=== PATIENT | female | born 1945 | race Caucasian/White ===

== ENCOUNTER 2018-03-04 20:27 | Inpatient (IN) | payer OTHER ==
--- OUTSIDE RECORDS SUMMARY | 2018-03-04 22:09 | XMS REPORT | Continuity of Care Document ---
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 Systolic (mm Hg) 140 03/21/2012 [facility] Diastolic (mm Hg) 80 03/21/2012 [facility] Weight 166 03/11/2012 [facility] Heart Rate 78 03/11/2012 [facility] Systolic (mm Hg) 141 03/11/2012 [facility] Diastolic (mm Hg) 80 03/11/2012 [facility] Height 60 02/15/2012 [facility] Weight 160 02/15/2012 [facility] Heart Rate 75 02/15/2012 [facility] Systolic (mm Hg) 134 02/15/2012 [facility] Diastolic (mm Hg) 77 02/15/2012 [facility] Encounters Location Location Encounter Encounter Reason Attending ADM DC Status Source Details Type Number For Provider Date Date Visit [facility] Office Visit [id number] Juan 06/25 06/25 [place] [facility] [id number] MD Luigi /2014 Medical [facility] Office Visit [id number] Juan 07/16 07/16 [place] [facility] [address] MD Luigi /2014 Medical [facility] Lab Report [id number] Juan 07/30 07/30 [place] [facility] [address] MD Luigi /2014 Medical [facility] Lab Report [id number] Juan 08/03 08/03 [place] [id number] MD Luigi /2014 Medical [facility] Office Visit [id number] Juan 08/13 08/13 [place] [facility] [address] MD Luigi /2014 Medical [facility] Office Visit [id number] Juan 08/17 08/17 [place] [id number] MD Luigi /2014 Medical [facility] Office Visit [id number] Juan 08/24 08/24 [place] [address] MD Luigi /2014 Medical [facility] Office Visit [id number] Juan 08/31 08/31 [place] [address] MD Luigi /2014 Medical [facility] Office Visit [id number] Juan 09/24 09/24 [place] [address] MD Luigi /2014 Medical [facility] Office Visit [id number] Juan 10/15 10/15 [place] [address] MD Luigi /2014 Medical [facility] Lab Report [id number] Juan 11/02 11/02 [place] [address] MD Luigi /2014 Medical [facility] Office Visit [id number] Juan 11/16 11/16 [place] [address] MD Luigi /2014 Medical [facility] Office Visit [id number] Juan 11/23 11/23 [place] [address] MD Luigi /2014 Medical [facility] Office Visit [id number] Juan 11/30 11/30 [place] [address] MD Luigi /2014 Medical [facility] Office Visit [id number] [place] 12/14 12/14 [place] [address] MD Luigi /2014 Medical [facility] Office Visit [id number] Juan 01/21 01/21 [place] [address] MD Luigi /2014 Medical [facility] Outpatient [id number] XRAY VISIT 01/21 Active [facility] [place] [facility] [id number] JUAN 01/21 Active [facility] 0 LUIG[facility] [place] [facility] [id number] JUAN 02/15 Active [facility] 2 [place] [facility]patient [id number] JUAN 04/22 Active [facility] 3 [place] [facility]patient [id number] JUAN 04/22 Active [facility] 4 [place] [facility]patient [id number] JUAN 10/12 Active [facility] [place] [facility]patient [id number] XRAY VISIT 10/12 [facility] [place] [facility]patient [id number] XRAY VISIT 10/12 [facility] Observation [id number] Juan 10/21 10/22 [place] 1 [place] [facility] [id number] JUAN 11/02 Active [facility] 8 [place] [facility]patient [id number] JUAN 11/23 Active [facility] 9 [place] [facility]patient [id number] JUAN 12/07 Active [facility] 0 LUIG[place] [facility]patient [id number] JUAN 02/12 Active [facility] 1 [place] Procedures Procedure Code Date Perfomer Comments Source Arthroscopy of [id number] 10/21/2016 RIGHT HIP [place] hip<sup>1</sup> ARTHROSCOPY,LA [place] BRAL DEBRIDEMENT,RE MOVAL OF LOOSE BODY,SYNOVECTO MY AND CHONDROPLASTY. Arthroplasty<sup>2</s [id number] left shoulder [facility] [place] up> [place] Arthroplasty of [id number] left [facility] [place] knee<sup>3</sup> [place] Arthroplasty of [id number] twice [facility] [place] knee<sup>4</sup> [place] Cholecystectomy [id number] [facility] [place] Colonoscopy [id number] [facility] [place] Hysterectomy [id number] [facility] [place] Revision of total [id number] right [facility] [place] knee arthroplasty, [place] all components<sup>5</sup > Shoulder [id number] left [facility] [place] implantation<sup>6</s [place] up>
--- OUTSIDE RECORDS SUMMARY | 2018-03-04 22:10 | XMS REPORT | Continuity of Care Document ---
:1945 Author Organization [facility] Care Team Providers Name Role Phone MD Luigi, Juan Unavailable Unavailable Insurance Providers Payer name Policy type / Policy ID Covered green party ID Policy Garcia Coverage type [facility] PFFS PRIM [employer] [place] - MEDICARE SOLUTIONS E[place] CARE IMPROVEMENT PL[place] MED[place] [employer] [place] - MEDICARE eTax Credit Exchange ESS [employer] [place] - MEDICARE SOLUTIONS E[place] CARE IMPROVEMENT [place] MED[place] [place] - MEDICARE SOLUTIONS [facility] VIDTEQ [place] - MEDICARE SOLUTIONS [facility] VIDTE[employer] [place] - MEDICARE SOLUTIONS [facility] VIDTEQ [place] - MEDICARE eTax Credit Exchange [facility] [employer] [place] - MEDICARE eTax Credit Exchange [facility] - MEDICARE SOLUTIONS [facility] Encounters Encounter Performer Location Date Office Visit Juan Meyers MD [facility] [place] [facility] Jun 25, 2014 Allergies, Adverse Reactions, Alerts Type Substance Reaction Status Drug allergy SULFA Active Drug allergy PCN Active Problems Problem Effective Dates Problem Status COPD Active INTERNAL DERANGEMENT, RIGHT KNEE Feb 15, 2012 Active TEAR MEDIAL CARTILAGE OR MENISCUS KNEE CURRENT Mar 11, 2012 Active OSTEOARTHRITIS, KNEE Jun 25, 2014 Active Medications Medication Instructions Start Date Status VICODIN ES 7.5-750 MG TABS one p.o. q.6 hour prn for pain Feb 15, 2012 Active VOLTAREN 1 % GEL 4 grams topically q6h prn Jun 25, 2014 Active pain/swelling NAPROSYN 500 MG TABS 1tab po BID with food for pain & Jun 25, 2014 Active swelling. Vital Signs Date Description Test Result Feb 15, 2012 height E&M - 8302-2 HEIGHT 60 in Feb 15, 2012 weight E&M - 3141-9 WEIGHT 160 lb Feb 15, 2012 pulse rate, standing PULSE STAND 75 /min Feb 15, 2012 blood pressure, systolic - 8480-6 BP SYSTOLIC 134 mm Hg Feb 15, 2012 blood pressure, diastolic - 8462-4 BP DIASTOLIC 77 mm Hg Mar 11, 2012 weight E&M - 3141-9 WEIGHT 166 lb Mar 11, 2012 pulse rate, standing PULSE STAND 78 /min Mar 11, 2012 blood pressure, systolic - 8480-6 BP SYSTOLIC 141 mm Hg Mar 11, 2012 blood pressure, diastolic - 8462-4 BP DIASTOLIC 80 mm Hg Mar 21, 2012 weight E&M - 3141-9 WEIGHT 167 lb Mar 21, 2012 pulse rate, standing PULSE STAND 78 /min Mar 21, 2012 blood pressure, systolic - 8480-6 BP SYSTOLIC 140 mm Hg Mar 21, 2012 blood pressure, diastolic - 8462-4 BP DIASTOLIC 80 mm Hg Apr 01, 2012 weight E&M - 3141-9 WEIGHT 167 lb Jun 25, 2014 weight E&M - 3141-9 WEIGHT 167 lb
--- OUTSIDE RECORDS SUMMARY | 2018-03-04 22:10 | XMS REPORT | Continuity of Care Document ---
:[address] [facility] Care Team Providers Name Role Phone MD Luigi, Juan Unavailable Unavailable Insurance Providers Payer name Policy type / Policy ID Covered republican ID Policy Garcia Coverage type [facility] MCR PFFS PRIM nothingGrinder - MEDICARE SOLUTIONS E[place] CARE IMPROVEMENT PL[place] MED[place]ARE ADVANTAG nothing[employer]inder - MEDICARE [employer] ESS nothingGrinder - MEDICARE SOLUTIONS E[place] CARE IMPROVEMENT [place] MED[place]ARE ADV[place] nothing[employer]inder - MEDICARE SOLUTIONS [facility] nothingGrinder - MEDICARE SOLUTIONS [facility] nothingGrinder - MEDICARE Gotuit [facility] nothingGrinder - MEDICARE Gotuit [facility] - MEDICARE SOLUTIONS [facility] - MEDICARE SOLUTIONS [facility] - MEDICARE SOLUTIONS [facility] Encounters Encounter Performer Location Date Office Visit Juan Meyers MD [facility] [place] [facility] Jun 25, 2014 Allergies, Adverse Reactions, [...]
--- OUTSIDE RECORDS SUMMARY | 2018-03-04 22:10 | XMS REPORT | Continuity of Care Document ---
:1945 Author Organization [facility] Care Team Providers Name Role Phone MD Luigi, Juan Unavailable Unavailable Insurance Providers Payer name Policy type / Policy ID Covered libertarian ID Policy Garcia Coverage [facility] PFFS PRIM [facility] - MEDICARE SOLUTIONS [place] CARE IMPROVEMENT PL[place] MEDICARE ADVANTAG [facility] - MEDICARE SOLUTIONS [facility] - MEDICARE SOLUTIONS [place] CARE IMPROVEMENT [place] MEDICARE ADVANTAG [facility] - MEDICARE SOLUTIONS [facility] - MEDICARE SOLUTIONS [facility] - MEDICARE SOLUTIONS [facility] - MEDICARE SOLUTIONS [facility] - MEDICARE SOLUTIONS [facility] - MEDICARE SOLUTIONS [facility] - MEDICARE SOLUTIONS [facility] - MEDICARE SOLUTIONS [facility] - MEDICARE SOLUTIONS [facility] - MEDICARE SOLUTIONS [facility] - MEDICARE SOLUTIONS [facility] - MEDICARE SOLUTIONS [facility] - MEDICARE SOLUTIONS [facility] - MEDICARE SOLUTIONS [facility] - MEDICARE SOLUTIONS [facility] - MEDICARE SOLUTIONS [facility] - MEDICARE SOLUTIONS [facility] - MEDICARE SOLUTIONS [facility] - MEDICARE SOLUTIONS [facility] - MEDICARE SOLUTIONS [facility] - MEDICARE SOLUTIONS [facility] - MEDICARE SOLUTIONS [facility] - MEDICARE SOLUTIONS [facility] - MEDICARE SOLUTIONS [facility] - MEDICARE SOLUTIONS [facility] - MEDICARE SOLUTIONS [facility] - MEDICARE SOLUTIONS [facility] - MEDICARE SOLUTIONS [facility] - MEDICARE SOLUTIONS [facility] - MEDICARE SOLUTIONS [facility] - MEDICARE SOLUTIONS [facility] - MEDICARE SOLUTIONS [facility] - MEDICARE SOLUTIONS [facility] - MEDICARE SOLUTIONS [facility] - MEDICARE SOLUTIONS [facility] - MEDICARE SOLUTIONS [facility] - MEDICARE SOLUTIONS [facility] - MEDICARE SOLUTIONS [facility] - MEDICARE SOLUTIONS [facility] - MEDICARE SOLUTIONS [facility] - MEDICARE SOLUTIONS [facility] - MEDICARE SOLUTIONS [facility] - MEDICARE SOLUTIONS [facility] - MEDICARE SOLUTIONS [facility] - MEDICARE SOLUTIONS [facility] - MEDICARE SOLUTIONS [facility] - MEDICARE SOLUTIONS [facility] - MEDICARE SOLUTIONS [facility] - MEDICARE SOLUTIONS [facility] Encounters Encounter Performer Location Date Office Visit Juan Meyers MD [facility] [place] [facility] Jan 21, 2015 Allergies, Adverse Reactions, Alerts Type Substance Reaction Status Drug allergy SULFA Active Drug allergy PCN Active Problems Problem Effective Dates Problem Status COPD Active INTERNAL DERANGEMENT, RIGHT KNEE Feb 15, 2012 Active TEAR MEDIAL CARTILAGE OR MENISCUS KNEE CURRENT Mar 11, 2012 Active OSTEOARTHRITIS, KNEE Jun 25, 2014 Active PRE-OPERATIVE CARDIOVASCULAR EXAMINATION Jul 30, 2014 Inactive KNEE REPLACEMENT, HX OF Aug 07, 2014 Active ROTATOR CUFF SYNDROME, LEFT Sep 24, 2014 Active SHOULDER JOINT REPLACEMENT BY OTHER MEANS November 08, 2014 Active CERVICAL SPRAIN Nov 30, 2014 Active Medications Medication Instructions Start Date Status VICODIN ES 7.5-750 MG TABS one p.o. q.6 hour prn for pain Feb 15, 2012 Active VOLTAREN 1 % GEL 4 grams topically q6h prn Jun 25, 2014 Active pain/swelling NAPROSYN 500 MG TABS 1tab po BID with food for pain & Jun 25, 2014 Active swelling. MELOXICAM 15 MG TABS one tablet p.o. daily with food Aug 13, 2014 Active p.r.n. swelling HYDROCHLOROTHIAZIDE 12.5 MG CAPS Take one capsule by mouth daily Aug 17, 2014 Active TYLENOL WITH CODEINE #4 TABS 1-2 tabs po q4-6hrs prn pain Aug 20, 2014 Active LIDODERM 5 % PTCH one patch topically to cervical Nov 30, 2014 Active spine daily p.r.n. pain NEURONTIN 300 MG CAPS po qhs Dec 14, 2014 Active Vital Signs Date Description Test Result Feb [...] weight E&M - 3141-9 WEIGHT 167 lb Jul 16, 2014 weight E&M - 3141-9 WEIGHT 167 lb Aug 13, 2014 temperature E&M TEMPERATURE 98.3 deg f Results Date Description Test Name Value Reference Interpretation Status Jul 30, hemoglobin, blood HGB 13.1 g/dL 12.0-15.0 2014Jul 30, hematocrit, blood HCT 40.8 % 35.0-43.8 2014November 02, hemoglobin, blood HGB 14.0 g/dL 12.0-15.0 2014November 02, hematocrit, blood HCT 42.2 % 35.0-43.8 2014Jul 30, sodium, serum SODIUM 142 mmol/L [phone] Jul 30, potassium, serum POTASSIUM 4.2 mmol/L 3.3-5.0 2014Jul 30, urea nitrogen, BUN 14 mg/dL -2014Jul 30, creatinine, serum CREATININE 1.17 mg/dL 0.46-1.20 2014Jul 30, calcium, serum CALCIUM 9.5 mg/dL 8.8-10.0 2014November 02, sodium, serum SODIUM 138 mmol/L [phone] November 02, potassium, serum POTASSIUM 5.1 mmol/L 3.3-5.0 High 2014November 02, urea nitrogen, BUN 17 mg/dL -20 2014November 02, creatinine, serum CREATININE 1.34 mg/dL 0.46-1.20 High 2014November 02, calcium, serum CALCIUM 10.1 mg/dL 8.8-10.0 High 2014Jul 30, international INR 0.99 null 0.8-1.5 2014 normalized ratio (INR) Jul 30, PTT patient PTT PATIENT 24.1 s 22.0-36.0 2014November 02, international INR 1.04 null 0.8-1.5 2014 normalized ratio (INR) November 02, PTT patient PTT PATIENT 23.2 s 22.0-36.0 2014
--- OUTSIDE RECORDS SUMMARY | 2018-03-04 22:10 | XMS REPORT | Continuity of Care Document ---
:1945 Author Organization [facility] Care Team Providers Name Role Phone MD Luigi, Juan Unavailable Unavailable Insurance Providers Payer name Policy type / Policy ID Covered republican ID Policy Garcia Coverage type [facility] MCR PFFS PRIM [place] - MEDICARE SOLUTIONS ESS CARE IMPROVEMENT PL[place] MEDICARE ADVANTAG [place] - MEDICARE SOLUTIONS ESS [place] - MEDICARE SOLUTIONS ESS CARE IMPROVEMENT [place] MEDICARE ADVANTAG [place] - MEDICARE SOLUTIONS [place]SS [place] - MEDICARE SOLUTIONS [place]SS [place] - MEDICARE SOLUTIONS ESS [place] - MEDICARE SOLUTIONS [place]SS [place] - MEDICARE SOLUTIONS [place]SS [place] - MEDICARE SOLUTIONS [place]SS [place] - MEDICARE SOLUTIONS [place]SS [place] - MEDICARE SOLUTIONS [place]SS [place] - MEDICARE SOLUTIONS [place]SS [place] - MEDICARE SOLUTIONS ESS [place] - MEDICARE SOLUTIONS ESS [place] - MEDICARE SOLUTIONS ESS [place] - MEDICARE SOLUTIONS [facility] Encounters Encounter Performer Location Date Lab Report Juan Meyers MD [facility] [place] [facility] Jul Allergies, Adverse Reactions, Alerts Type Substance Reaction Status Drug allergy SULFA Active Drug allergy PCN Active Problems Problem Effective Dates Problem Status COPD Active INTERNAL DERANGEMENT, RIGHT KNEE Feb 15, 2012 Active TEAR MEDIAL CARTILAGE OR MENISCUS KNEE CURRENT Mar 11, 2012 Active OSTEOARTHRITIS, KNEE Jun 25, 2014 Active PRE-OPERATIVE CARDIOVASCULAR EXAMINATION Jul 30, 2014 Active Medications Medication Instructions Start [...] weight E&M - 3141-9 WEIGHT 167 lb Results Date Description Test Name Value Reference Interpretation Status Jul 30, hemoglobin, blood HGB 13.1 g/dL 12.0-15.0 2014Jul 30, hematocrit, blood HCT 40.8 % 35.0-43.8 2014Jul 30, sodium, serum SODIUM 142 mmol/L [phone] Jul 30, potassium, serum POTASSIUM 4.2 mmol/L 3.3-5.0 2014Jul 30, urea nitrogen, BUN 14 mg/dL 8-20 2014 blood Jul 30, creatinine, serum CREATININE 1.17 mg/dL 0.46-1.20 2014Jul 30, calcium, serum CALCIUM 9.5 mg/dL 8.8-10.0 2014Jul 30, international INR 0.99 null 0.8-1.5 2014 normalized ratio (INR) Jul 30, PTT patient PTT PATIENT 24.1 s 22.0-36.0 2014
--- OUTSIDE RECORDS SUMMARY | 2018-03-04 22:10 | XMS REPORT | Summary of Care ---
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 Rate ml/hr: 8 , Patient administered bolus ml/hr: 5 , Delay minutes: 30. Current Status Assessment Visual Analog Scale for Pain (VAS 0-10): At Rest: 1, With Activity: 2. Pump Use: Appropriate. Level of Sedation: Awake/Alert. Activity: Ambulating. Motor Block Residual Motor Weakness: No. Numbness Residual Sensory Numbness: No. Adjuvant Medication: PO. Site Assessment Non-tender, no redness, minimal swelling or bruising, No exudates, drainage, or bleeding. Side Effects Nausea/Vomiting: Mild. Catheter(s) Removed All peripheral nerve catheters removed. Date/Time: 10/23/2016 08:00. Tip was intact. 1st PO Analgesic Plan [facility] Plan Discharge from [facility] care: Analgesics per Primary Service. OUTPATIENT PHONE CALL: ILaly, am scribing for, and in the presence of Dr. Cain . Addendum by Mateo Cain MD on I, Dr Cain, personally performed the 10/23/2016 14:48 services described in this documentation, ascribed by APMS RN in my presence, and it is both accurate and complete.
--- OUTSIDE RECORDS SUMMARY | 2018-03-04 22:10 | XMS REPORT | Continuity of Care Document ---
:1945 Author Organization [facility] Care Team Providers Name Role Phone MD Luigi, Juan Unavailable Unavailable Insurance Providers Payer name Policy type / Policy ID Covered republican ID Policy Garcia Coverage type [facility] MCR PFFS PRIM UNITED HEALTHCARE - MEDICARE [...] Location Date Office Visit Juan Meyers MD [facility] [place] [facility] Dec 14, 2014 Allergies, Adverse Reactions, Alerts Type Substance [...] 2014Jul 30, sodium, serum SODIUM 142 mmol/L [phone] Jul 30, potassium, serum POTASSIUM 4.2 mmol/L 3.3-5.0 2014Jul 30, urea nitrogen, BUN 14 mg/dL 8-2014Jul 30, creatinine, serum CREATININE 1.17 mg/dL 0.46-1.20 2014Jul 30, calcium, serum CALCIUM 9.5 mg/dL 8.8-10.0 2014November 02, sodium, serum SODIUM 138 mmol/L [phone] November 02, potassium, serum POTASSIUM 5.1 mmol/L 3.3-5.0 High 2014November 02, urea nitrogen, BUN 17 mg/dL 8-20 2014November 02, creatinine, serum CREATININE 1.34 mg/dL [...]
--- OUTSIDE RECORDS SUMMARY | 2018-03-04 22:10 | XMS REPORT | Continuity of Care Document ---
:1945 Author Organization [facility] Care Team Providers Name Role Phone MD Luigi, Juan Unavailable Unavailable Insurance Providers Payer name Policy type / Policy ID Covered green party ID Policy Garcia Coverage type [facility] MCR PFFS PRIM Augment - MEDICARE SOLUTIONS ESS CARE IMPROVEMENT PL[place] MEDICARE ADVANTAG Augment - MEDICARE Swing by Swing ESS Augment - MEDICARE SOLUTIONS [place] CARE IMPROVEMENT [place] MED[place] ADV[place] Augment - MEDICARE Swing by Swing ESS Augment - MEDICARE SOLUTIONS ESS Augment - MEDICARE SOLUTIONS [facility] Augment - MEDICARE SOLUTIONS [facility] Augment - MEDICARE SOLUTIONS [facility] Augment - MEDICARE SOLUTIONS [facility] Augment - MEDICARE Swing by Swing [facility] UNITED HEALTHCARE - MEDICARE SOLUTIONS [facility] Encounters Encounter Performer Location Date Office Visit Juan Meyers MD [facility] [place] [facility] Jul 16, 2014 Allergies, Adverse Reactions, Alerts Type Substance [...]
--- OUTSIDE RECORDS SUMMARY | 2018-03-04 22:11 | XMS REPORT | Continuity of Care Document ---
:1945 Author Organization [facility] Care Team Providers Name Role Phone MD Luigi, Juan Unavailable Unavailable Insurance Providers Payer name Policy type / Policy ID Covered constitution party ID Policy Garcia Coverage type [facility]ITALAr[facility] MCR PFFS PRIM UNITED HEALTHCARE - MEDICARE SOLUTIONS [place] CARE IMPROVEMENT [place] MED[place]ARE ADVANTAG [employer] [facility] - MEDICARE SOLUTIONS [facility] - MEDICARE SOLUTIONS [place] CARE IMPROVEMENT PL[place] MED[place]ARE ADV[place] UNITED [facility]CARE - MEDICARE SOLUTIONS ESSEN UNITED HEALTHCARE - MEDICARE SOLUTIONS ESSEN UNITED HEALTHCARE - MEDICARE SOLUTIONS ESSEN UNITED HEALTHCARE - MEDICARE SOLUTIONS ESS UNITED HEALTHCARE - MEDICARE SOLUTIONS ESSEN UNITED HEALTHCARE - MEDICARE SOLUTIONS ESSEN UNITED HEALTHCARE - MEDICARE SOLUTIONS ESSEN UNITED HEALTHCARE - MEDICARE SOLUTIONS ESSEN UNITED HEALTHCARE - MEDICARE SOLUTIONS ESSEN UNITED HEALTHCARE - MEDICARE SOLUTIONS ESSEN UNITED HEALTHCARE - MEDICARE SOLUTIONS ESSEN UNITED HEALTHCARE - MEDICARE SOLUTIONS ESS UNITED HEALTHCARE - MEDICARE SOLUTIONS ESS UNITED HEALTHCARE - MEDICARE SOLUTIONS ESS UNITED HEALTHCARE - MEDICARE SOLUTIONS ESS [facility]ALTHCARE - MEDICARE SOLUTIONS ESSEN UNITED HEALTHCARE - MEDICARE SOLUTIONS ESSEN UNITED HEALTHCARE - MEDICARE SOLUTIONS ESS UNITED HEALTHCARE - MEDICARE SOLUTIONS ESS Encounters Encounter Performer Location Date Office Visit Juan Meyers MD [facility] [place] [facility] Aug 13, 2014 Allergies, Adverse Reactions, Alerts Type Substance Reaction Status Drug allergy SULFA Active Drug allergy PCN Active Problems Problem Effective Dates Problem Status COPD Active INTERNAL DERANGEMENT, RIGHT KNEE Feb 15, 2012 Active TEAR MEDIAL CARTILAGE OR MENISCUS KNEE CURRENT Mar 11, 2012 Active OSTEOARTHRITIS, KNEE Jun 25, 2014 Active PRE-OPERATIVE CARDIOVASCULAR EXAMINATION Jul 30, 2014 Active KNEE REPLACEMENT, HX OF Aug 07, 2014 Active Medications Medication Instructions Start Date [...] TABS one tablet p.o. daily with food p.r.n. Aug 13, 2014 Active swelling Vital Signs Date Description Test Result Feb [...] 2014Jul 30, sodium, serum SODIUM 142 mmol/L [phone] Jul 30, potassium, serum POTASSIUM 4.2 mmol/L 3.3-5.0 2014Jul 30, urea nitrogen, BUN 14 mg/dL 8-20 2015 blood Jul 30, creatinine, serum CREATININE 1.17 mg/dL 0.46-1.20 2014Jul 30, calcium, serum CALCIUM 9.5 mg/dL 8.8-10.0 2014Jul 30, international INR 0.99 null 0.8-1.5 2014 normalized ratio (INR) Jul 30, PTT patient PTT PATIENT 24.1 s 22.0-36.0 2014
--- OUTSIDE RECORDS SUMMARY | 2018-03-04 22:11 | XMS REPORT | Continuity of Care Document ---
:1945 Author Organization [facility] Care Team Providers Name Role Phone MD Luigi, Juan Unavailable Unavailable Insurance Providers Payer name Policy type / Policy ID Covered democrat ID Policy Garcia Coverage type [facility] MCR PFFS PRIM [employer] - MEDICARE SOLUTIONS [place] CARE IMPROVEMENT PL[place] MEDICARE ADV[place]AG [employer] - MEDICARE SOLUTIONS ESS [employer] - MEDICARE SOLUTIONS [place] CARE IMPROVEMENT [place] MEDICARE ADVANTAG [employer] - MEDICARE SOLUTIONS ESS [employer] - MEDICARE SOLUTIONS ESS [employer] - MEDICARE SOLUTIONS ESS [employer] - MEDICARE SOLUTIONS ESS [employer] - MEDICARE SOLUTIONS ESS [employer] - MEDICARE SOLUTIONS ESS CombiMatrix - MEDICARE SOLUTIONS ESS CombiMatrix - MEDICARE SOLUTIONS ESS Combi[employer] - MEDICARE SOLUTIONS ESS CombiMatrix - MEDICARE SOLUTIONS ESS [employer] - MEDICARE SOLUTIONS ESS [employer] - MEDICARE SOLUTIONS ESS Com[employer] - MEDICARE SOLUTIONS [facility] Encounters Encounter Performer Location Date Lab Report Juan Meyers MD [facility] [place] [facility] Jul Allergies, Adverse Reactions, Alerts Type [...] 2014Jul 30, sodium, serum SODIUM 142 mmol/L [phone] Jul 30, potassium, serum POTASSIUM 4.2 mmol/L 3.3-5.0 2014Jul 30, urea nitrogen, BUN 14 mg/dL 8-20 2014 blood Jul 30, creatinine, serum CREATININE 1.17 mg/dL 0.46-1.20 2014Jul 30, calcium, serum CALCIUM 9.5 mg/dL 8.8-10.0 2014Jul 30, international INR 0.99 null 0.8-1.5 2014 normalized ratio (INR) Jul 30, PTT patient PTT PATIENT 24.1 s 22.0-36.0 2014
--- OUTSIDE RECORDS SUMMARY | 2018-03-04 22:11 | XMS REPORT | Continuity of Care Document ---
:1945 Author Organization [facility] Care Team Providers Name Role Phone MD Luigi, Juan Unavailable Unavailable Insurance Providers Payer name Policy type / Policy ID Covered democrat ID Policy Garcia Coverage type NanoviFORT HAMILTON HOSPITALClick Security MCR PFFS PRIM UNITED HEALTHCARE - MEDICARE [...] Location Date Office Visit Juan Meyers MD [facility] [place] [facility] Sep 24, 2014 Allergies, Adverse Reactions, Alerts Type Substance [...] CUFF SYNDROME, LEFT Sep 24, 2014 Active Medications Medication Instructions Start Date [...] q4-6hrs prn pain Aug 20, 2014 Active Vital Signs Date Description Test [...] 2014Jul 30, sodium, serum SODIUM 142 mmol/L [phone] Jul 30, potassium, serum POTASSIUM 4.2 mmol/L 3.3-5.0 2014Jul 30, urea nitrogen, BUN 14 mg/dL 8-20 2014 blood Jul 30, creatinine, serum CREATININE 1.17 mg/dL 0.46-1.20 2014Jul 30, calcium, serum CALCIUM 9.5 mg/dL 8.8-10.0 2014Jul 30, international INR 0.99 null 0.8-1.5 2014 normalized ratio (INR) Jul 30, PTT patient PTT PATIENT 24.1 s 22.0-36.0 2014
--- OUTSIDE RECORDS SUMMARY | 2018-03-04 22:11 | XMS REPORT | Continuity of Care Document ---
:1945 Author Organization [facility] Care Team Providers Name Role Phone MD Luigi, Juan Unavailable Unavailable Insurance Providers Payer name Policy type / Policy ID Covered green party ID Policy Garcia Coverage type FX AlignedKETTER[facility] HE[facility] SO[facility] MEDICAL CENTERConservis MCR PFFS PRIM UNITED HEALTHCARE - MEDICARE [...] Location Date Office Visit Juan Meyers MD [facility] [place] [facility] Oct 15, 2014 Allergies, Adverse Reactions, Alerts Type Substance [...] 2014Jul 30, sodium, serum SODIUM 142 mmol/L [phone] Jul 30, potassium, serum POTASSIUM 4.2 mmol/L 3.3-5.0 2014Jul 30, urea nitrogen, BUN 14 mg/dL 8-20 2014 blood Jul 30, creatinine, serum CREATININE 1.17 mg/dL 0.46-1.20 2014Jul 30, calcium, serum CALCIUM 9.5 mg/dL 8.8-10.0 2014Jul 30, international INR 0.99 null 0.8-1.5 2014 normalized ratio (INR) Jul 30, PTT patient PTT PATIENT 24.1 s 22.0-36.0 2014
--- OUTSIDE RECORDS SUMMARY | 2018-03-04 22:11 | XMS REPORT | Continuity of Care Document ---
:1945 Author Organization [facility] Care Team Providers Name Role Phone MD Luigi, Juan Unavailable Unavailable Insurance Providers Payer name Policy type / Policy ID Covered republican ID Policy Garcia Coverage type Nomis SolutionsWVUMEDICINE BARN[facility]VILLE HOSPITALElastra MCR PFFS PRIM UNITED HEALTHCARE - MEDICARE [...] Office Visit Juan Meyers MD [facility] [place] [facility] Aug 17, 2014 Allergies, Adverse Reactions, Alerts Type Substance [...] by mouth daily Aug 17, 2014 Active Vital Signs Date Description Test [...] 2014Jul 30, sodium, serum SODIUM 142 mmol/L [phone] Jul 30, potassium, serum POTASSIUM 4.2 mmol/L 3.3-5.0 2014Jul 30, urea nitrogen, BUN 14 mg/dL 8-20 2015 blood Jul 30, creatinine, serum CREATININE 1.17 mg/dL 0.46-1.20 2014Jul 30, calcium, serum CALCIUM 9.5 mg/dL 8.8-10.0 2014Jul 30, international INR 0.99 null 0.8-1.5 2014 normalized ratio (INR) Jul 30, PTT patient PTT PATIENT 24.1 s 22.0-36.0 2014
--- OUTSIDE RECORDS SUMMARY | 2018-03-04 22:11 | XMS REPORT | Continuity of Care Document ---
:1945 Author Organization [facility] Care Team Providers Name Role Phone MD Luigi, Juan Unavailable Unavailable Insurance Providers Payer name Policy type / Policy ID Covered republican ID Policy Garcia Coverage type [facility] [facility]OSPITALKilimanjaro Energy MCR PFFS PRIM UNITED HEALTHCARE - MEDICARE [...] Location Date Office Visit Juan Meyers MD [facility] [place] [facility] Aug 24, 2014 Allergies, Adverse Reactions, Alerts Type [...] 80 mm Hg Mar 21, 2012 weight E&Cate - 3141-9 WEIGHT 167 lb Mar 21, [...] 2014Jul 30, sodium, serum SODIUM 142 mmol/L [phone] Jul 30, potassium, serum POTASSIUM 4.2 mmol/L 3.3-5.0 2014Jul 30, urea nitrogen, BUN 14 mg/dL 8-20 2015 blood Jul 30, creatinine, serum CREATININE 1.17 mg/dL 0.46-1.20 2014Jul 30, calcium, serum CALCIUM 9.5 mg/dL 8.8-10.0 2014Jul 30, international INR 0.99 null 0.8-1.5 2014 normalized ratio (INR) Jul 30, PTT patient PTT PATIENT 24.1 s 22.0-36.0 2014
--- OUTSIDE RECORDS SUMMARY | 2018-03-04 22:11 | XMS REPORT | Continuity of Care Document ---
:1945 Author Organization [facility] Care Team Providers Name Role Phone MD Luigi, Juan Unavailable Unavailable Insurance Providers Payer name Policy type / Policy ID Covered constitution party ID Policy Garcia Coverage type [facility] MCR PFFS PRIM [employer] - MEDICARE SOLUTIONS E[place] CARE IMPROVEMENT PLUS - [place] MEDICARE ADVANTAG [employer] - MEDICARE SOLUTIONS ESS NanoICE - MEDICARE SOLUTIONS ESS CARE IMPROVEMENT PLUS - [place] MEDICARE ADVANTAG [employer] - MEDICARE SOLUTIONS ESS NanoICE - MEDICARE SOLUTIONS ESS [employer] [facility] - MEDICARE SOLUTIONS ESS UNITED HEALTHCARE - MEDICARE SOLUTIONS ESS [employer] - MEDICARE SOLUTIONS ESS NanoICE - MEDICARE SOLUTIONS ESS UNITED Vinobo - MEDICARE SOLUTIONS ESS UNITED Vinobo - MEDICARE SOLUTIONS ESS UNITED HEALTHCARE - MEDICARE SOLUTIONS ESS Nano[employer] - MEDICARE SOLUTIONS ESS NanoICE - MEDICARE SOLUTIONS [facility] NanoICE - MEDICARE SOLUTIONS [facility] Encounters Encounter Performer Location Date Lab Report Juan Meyers MD [facility] [place] [facility] Jul Allergies, Adverse Reactions, Alerts Type [...] 2014Jul 30, sodium, serum SODIUM 142 mmol/L [phone] Jul 30, potassium, serum POTASSIUM 4.2 mmol/L 3.3-5.0 2014Jul 30, urea nitrogen, BUN 14 mg/dL 8-20 2015 blood Jul 30, creatinine, serum CREATININE 1.17 mg/dL 0.46-1.20 2014Jul 30, calcium, serum CALCIUM 9.5 mg/dL 8.8-10.0 2014Jul 30, international INR 0.99 null 0.8-1.5 2014 normalized ratio (INR) Jul 30, PTT patient PTT PATIENT 24.1 s 22.0-36.0 2014
--- OUTSIDE RECORDS SUMMARY | 2018-03-04 22:11 | XMS REPORT | Continuity of Care Document ---
:1945 Author Organization [facility] Care Team Providers Name Role Phone MD Luigi, Juan Unavailable Unavailable Insurance Providers Payer name Policy type / Policy ID Covered libertarian ID Policy Garcia Coverage type [facility]CR PFFS PRIM UNITED HEALTHCARE - MEDICARE [...] Location Date Office Visit Juan Meyers MD [facility] [place] [facility] Aug 31, 2014 Allergies, Adverse Reactions, Alerts Type Substance [...] 2014Jul 30, sodium, serum SODIUM 142 mmol/L [phone] Jul 30, potassium, serum POTASSIUM 4.2 mmol/L 3.3-5.0 2014Jul 30, urea nitrogen, BUN 14 mg/dL 8-20 2015 blood Jul 30, creatinine, serum CREATININE 1.17 mg/dL 0.46-1.20 2014Jul 30, calcium, serum CALCIUM 9.5 mg/dL 8.8-10.0 2014Jul 30, international INR 0.99 null 0.8-1.5 2014 normalized ratio (INR) Jul 30, PTT patient PTT PATIENT 24.1 s 22.0-36.0 2014
--- OUTSIDE RECORDS SUMMARY | 2018-03-04 22:12 | XMS REPORT | Continuity of Care Document ---
:1945 Author Organization [facility] Care Team Providers Name Role Phone MD Luigi, Juan Unavailable Unavailable Insurance Providers Payer name Policy type / Policy ID Covered alliance party ID Policy Garcia Coverage type [facility] MCR PFFS PRIM UNITED HEALTHCARE - [...] Location Date Office Visit Juan Meyers MD [facility] [place] [facility] Nov 23, 2014 Allergies, Adverse Reactions, Alerts Type Substance [...] BY OTHER MEANS November 08, 2014 Active Medications Medication Instructions Start Date [...] 2014Jul 30, sodium, serum SODIUM 142 mmol/L [phone] Jul 30, potassium, serum POTASSIUM 4.2 mmol/L 3.3-5.0 2014Jul 30, urea nitrogen, BUN 14 mg/dL 8-20 2014Jul 30, creatinine, serum CREATININE 1.17 mg/dL 0.46-1.20 2014Jul 30, calcium, serum CALCIUM 9.5 mg/dL 8.8-10.0 2014November 02, sodium, serum SODIUM 138 mmol/L [phone] November 02, potassium, serum POTASSIUM 5.1 mmol/L [...]
--- OUTSIDE RECORDS SUMMARY | 2018-03-04 22:12 | XMS REPORT | Continuity of Care Document ---
:[address] [facility] Care Team Providers Name Role Phone MD Luigi, Juan Unavailable Unavailable Insurance Providers Payer name Policy type / Policy ID Covered libertarian ID Policy Garcia [facility]age [facility] MCR PFFS PRIM UNITED HEALTHCARE - MEDICARE [...] Location Date Office Visit Juan Meyers MD [facility] [place] [facility] November 16, 2014 Allergies, Adverse Reactions, Alerts Type [...] 2014Jul 30, sodium, serum SODIUM 142 mmol/L [phone] Jul 30, potassium, serum POTASSIUM 4.2 mmol/L 3.3-5.0 2014Jul 30, urea nitrogen, BUN 14 mg/dL 8-20 2014Jul 30, creatinine, serum CREATININE 1.17 mg/dL 0.46-1.20 2014Jul 30, calcium, serum CALCIUM 9.5 mg/dL 8.8-10.0 2014November 02, sodium, serum SODIUM 138 mmol/L [phone] November 02, potassium, serum POTASSIUM 5.1 mmol/L [...]
--- OUTSIDE RECORDS SUMMARY | 2018-03-04 22:12 | XMS REPORT | Continuity of Care Document ---
:1945 Author Organization [facility] Care Team Providers Name Role Phone MD Luigi, Juan Unavailable Unavailable Insurance Providers Payer name Policy type / Policy ID Covered republican ID Policy Garcia Coverage type NanomixGRAND LAKE [facility] MEMORIAL HOSPITALGuanri MCR PFFS PRIM UNITED HEALTHCARE - MEDICARE [...] SOLUTIONS ESSEN Encounters Encounter Performer Location Date Lab Report Juan Meyers MD [facility] [place] [facility] October Allergies, Adverse Reactions, Alerts Type Substance Reaction [...] 2014Jul 30, sodium, serum SODIUM 142 mmol/L [phone] Jul 30, potassium, serum POTASSIUM 4.2 mmol/L 3.3-5.0 2014Jul 30, urea nitrogen, BUN 14 mg/dL 8-2014Jul 30, creatinine, serum CREATININE 1.17 mg/dL 0.46-1.20 2014Jul 30, calcium, serum CALCIUM 9.5 mg/dL 8.8-10.0 2014November 02, sodium, serum SODIUM 138 mmol/L [phone] November 02, potassium, serum POTASSIUM 5.1 mmol/L 3.3-5.0 High 2014November 02, urea nitrogen, BUN 17 mg/dL -2014November 02, creatinine, serum CREATININE 1.34 mg/dL 0.46-1.20 [...]
--- OUTSIDE RECORDS SUMMARY | 2018-03-04 22:12 | XMS REPORT | Continuity of Care Document ---
:1945 Author Organization [facility] Care Team Providers Name Role Phone MD Luigi, Juan Unavailable Unavailable Insurance Providers Payer name Policy type / Policy ID Covered constitution party ID Policy Garcia Coverage [facility] MCR PFFS PRIM UNITED HEALTHCARE - MEDICARE [...] Location Date Office Visit Juan Meyers MD [facility] [place] [facility] November 16, 2014 Allergies, Adverse Reactions, [...] 2014Jul 30, sodium, serum SODIUM 142 mmol/L [phone] Jul 30, potassium, serum POTASSIUM 4.2 mmol/L 3.3-5.0 2014Jul 30, urea nitrogen, BUN 14 mg/dL 8-20 2014Jul 30, creatinine, serum CREATININE 1.17 mg/dL 0.46-1.20 2014Jul 30, calcium, serum CALCIUM 9.5 mg/dL 8.8-10.0 2014November 02, sodium, serum SODIUM 138 mmol/L [phone] November 02, potassium, serum POTASSIUM 5.1 mmol/L [...]
--- OUTSIDE RECORDS SUMMARY | 2018-03-04 22:12 | XMS REPORT | Continuity of Care Document ---
:1945 Author Organization [facility] Care Team Providers Name Role Phone MD Luigi, Juan Unavailable Unavailable Insurance Providers Payer name Policy type / Policy ID Covered libertarian ID Policy Garcia Coverage type [facility] MCR PFFS PRIM UNITED HEALTHCARE [...] Location Date Office Visit Juan Meyers MD [facility] [place] [facility] Nov 30, 2014 Allergies, Adverse Reactions, Alerts Type Substance [...] 30, 2014 Active spine daily p.r.n. pain Vital Signs Date Description Test Result Feb [...] 2014Jul 30, sodium, serum SODIUM 142 mmol/L [phone] Jul 30, potassium, serum POTASSIUM 4.2 mmol/L 3.3-5.0 2014Jul 30, urea nitrogen, BUN 14 mg/dL 8-2014Jul 30, creatinine, serum CREATININE 1.17 mg/dL 0.46-1.20 2014Jul 30, calcium, serum CALCIUM 9.5 mg/dL 8.8-10.0 2014November 02, sodium, serum SODIUM 138 mmol/L [phone] November 02, potassium, serum POTASSIUM 5.1 mmol/L [...]
[2018-03-04] MEDS ORDERED: ONDANSETRON 4 MG/2 ML VIAL IV PRN (22:32)
[2018-03-04] MEDS: HYDROMORPHONE HCL 1 MG/ML INJ IV PRN (22:49)
[2018-03-04] MEDS: NA CHLORIDE 0.9% 1,000 ML IV SCH (22:55)
[2018-03-05 00:16] VITALS: BMI 37.1
[2018-03-05] MEDS ORDERED: CEFAZOLIN SODIUM 1 GM/VIAL ONE (01:01)
[2018-03-05] MEDS: CEFAZOLIN/NS 1gm 1 GM/50 ML BAG IVPB SCH ×2 (01:28→05:45)
[2018-03-05] MEDS ORDERED: NA CHLORIDE 0.9% 100 ML ONE ×2 (01:29→06:58)
[2018-03-05] MEDS: HYDROMORPHONE HCL 1 MG/ML INJ IV PRN ×3 (02:30→20:30)
[2018-03-05 05:34] LABS: Absolute Lymphocytes (CBC) 1.9 K/uL (0.7-4.9); Absolute Monocytes 0.5 K/uL (0.1-1.3); Absolute Neutrophil 6.7 K/uL (1.8-8.0); Basophils % 1.6 % (0-1.3); Eosinophils % 3.4 % (0-4.4); Hematocrit 32.9 % (36.0-45.0); Lymphocytes % 20.2 % (15.3-44.8); MCH 26.9 pg (27.0-35.0); MCV 83.4 fL (80-100); MPV 8.5 fL (7.6-11.3); Monocytes % 5.4 % (3.3-12.3); RBC Red Blood Cell Count 3.95 M/uL (3.86-4.86)
[2018-03-05 05:37] LABS: Protime INR 1.04
[2018-03-05 05:52] LABS: Albumin 2.8 g/dL (3.4-5.0); Bilirubin Total 0.2 mg/dL (0.2-1.0); Magnesium 1.9 mg/dL (1.8-2.4); Phosphorus 4.1 mg/dL (2.5-4.9); Potassium 3.9 mmol/L (3.5-5.1); Protein, Total 7.1 g/dL (6.4-8.2)
[2018-03-05] MEDS ORDERED: HYDROMORPHONE HCL 1 MG/ML INJ IV ONE (06:05)
[2018-03-05] MEDS ORDERED: KCL 20 MEQ/100 mL IVPB 20 MEQ/100 ML BAG IV SCH (08:00)
[2018-03-05] MEDS ORDERED: Ringers Lactate 1,000 ML IV ONE (08:48)
[2018-03-05] MEDS: NA CHLORIDE 0.9% 1,000 ML IV SCH ×2 (09:00→16:34)
[2018-03-05] MEDS: ENOXAPARIN 30 MG/0.3 ML SQ SCH (09:00)
[2018-03-05] MEDS ORDERED: FENTANYL CITR 100 MCG/2 ML ONE (09:02)
[2018-03-05] MEDS ORDERED: SUCCINYLCHOLINE 20 MG/ML (10 ML) IV ONE (09:05)
[2018-03-05] MEDS ORDERED: PROPOFOL 200 MG/20 ML VIAL IV ONE (09:06)
[2018-03-05] MEDS ORDERED: ONDANSETRON 4 MG/2 ML VIAL ONE (09:38)
[2018-03-05] MEDS: MORPHINE 4 MG/ML SYR ONE ×2 (09:50→09:55)
--- NOTE | 2018-03-05 09:51 | P.HP ---
Certification for Inpatient Patient admitted to: Observation With expected LOS: <2 Midnights Patient will require the following post-hospital care: Home Health Services Practitioner: I am a practitioner with admitting privileges, knowledge of patient current condition, hospital course, and medical plan of care. Services: Services provided to patient in accordance with Admission requirements found in Title 42 Section 412.3 of the Code of Federal Regulations Patient History Date of Service: 03/04/18 Reason for admission: Hip dislocation History of Present Illness: Patient is a 73-year-old female who had a total hip arthroplasty in January. This was done on the right hip. Since that time patient has has some issues with hip dislocation. She had a pop out of place a few weeks ago. This has happened again last night. Patient was brought into the emergency room at [facility] [place]. Patient was transferred to our facility as they did not have an orthopedic sterilization tech. Will go ahead and make patient NPO after midnight for rearticulation of her hip joint. Continue with pain control at this time. Also will start physical therapy once this is done. She also need a pillow to keep her hips from crossing over. Allergies Penicillins Allergy (Verified 03/04/18 22:30) Rash Sulfa (Sulfonamide Antibiotics) Allergy (Verified 03/04/18 22:30) Hives - Past Medical/Surgical History Has patient received pneumonia vaccine in the past: Yes Diabetic: No -: HTN -: TIA -: COPD -: Depression -: Lap appy -: Allison -: -: Left shoulder replacement -: 2X replacement right knee -: 1x replacement left knee - Family History Father Notes: alcoholic - Social History Smoking Status: Former smoker Alcohol use: No CD- Drugs: No Caffeine use: Yes Place of Residence: Home Review of Systems 10-point ROS is otherwise unremarkable Physical Examination - Vital Signs Temperature: 98.4 F Blood Pressure: 114/48 Pulse: 73 Respirations: 16 Pulse Ox (%): 96 - Physical Exam General: Alert, In no apparent distress, Oriented x3 HEENT: Atraumatic, PERRLA, Mucous membr. moist/pink, EOMI, Sclerae nonicteric Neck: Supple, 2+ carotid pulse no bruit, No LAD, Without JVD or thyroid abnormality Respiratory: Clear to auscultation bilaterally, Normal air movement Cardiovascular: Regular rate/rhythm, Normal S1 S2, No murmurs Gastrointestinal: Normal bowel sounds, Soft and benign, Non-distended, No tenderness Musculoskeletal: No clubbing, No swelling, No tenderness Integumentary: No rashes, No breakdown Neurological: Normal gait, Normal speech, Normal strength at 5/5 x4 extr, Normal tone, Sensation intact, Cranial nerves 3-12 intact, Normal affect Lymphatics: No axilla or inguinal lymphadenopathy - Studies Laboratory Data (last 24 hrs) 03/05/18 04:59: Sodium 143, Potassium 3.9, BUN 14, Creatinine 1.00, Glucose 113 H, Phosphorus 4.1, Magnesium 1.9, Total Bilirubin 0.2, AST 27, ALT 48, Alkaline Phosphatase 270 H 03/05/18 04:59: PT 12.3, INR 1.04, APTT 29.5 03/05/18 04:59: WBC 9.6, Hgb 10.6 L, Hct 32.9 L, Plt Count 433 H Assessment & Plan - Plan Assessment: 1. Hip dislocation 2. history of total hip arthroplasty on the left 3. history of COPD 4. History of TIA 5. History of hypertension and dyslipidemia Plan: 1. Orthopedic consultation 2. Pain control 3. Physical therapy consultation 4. Continue home medication and medical management with strict blood pressure and blood sugar control 5. GI and DVT prophylaxis Discharge Plan: Home Plan to discharge in: 24 Hours - Advance Directives Does patient have a Living Will: Yes Does patient have a Durable POA for Healthcare: Yes - Code Status/Comfort Care Code Status Assessed: Yes Code Status: Full Code Critical Care: No Time Spent Managing PTS Care (In Minutes): 50
--- NOTE | 2018-03-05 09:55 | RAD REPORT ---
EXAM DESCRIPTION: RAD - Hip Right 2 View - 03/05/2018 9:37 am CLINICAL HISTORY: Right hip pain FINDINGS: Right femoral prosthesis is dislocated superolaterally. No fracture is seen
[2018-03-05] MEDS: OXYCODONE HCL 5 MG TAB PO PRN (10:31)
[2018-03-05] MEDS ORDERED: CEFAZOLIN/SWI 1gm 1 GM/10 ML SYR IV SCH (12:00)
[2018-03-05 14:51] LABS: Ferritin 41.1 ng/mL (8-388)
--- NOTE | 2018-03-05 16:41 | PN ---
Subjective: Currently the patient is lying in bed. She looks okay. She is eating chips but she com plaining of severe back pain. No chest pain. No abdominal pain. She went through the procedure wel l earlier this morning with the closed reduction of the right hip but she reported lower severe back pain and she describes it as feeling as she is in delivery. Physical Examination: Vital Signs: Blood pressure 109/48, respiratory rate 16, pulse 77, temperature 98.4, saturating 100% . The patient is alert, oriented x3. Does not look in any distress. HEENT: Atraumatic, normocephalic. PERRLA. Oral mucosa is moist. Neck: Supple. No JVD. No carotid bruits. Chest: Clear to auscultation. Good air entry. Heart: Regular rate and rhythm. S1, S2 normal. No gallop or murmur. Abdomen: Soft, nontender. No masses. No hepatosplenomegaly. Positive bowel sounds. Extremity: No clubbing, cyanosis, or edema. No calf tenderness. Neurologic: Grossly intact. Laboratory Data: Lab today, CBC within normal except for hemoglobin of 10.6. Chemistry within gladis l except for chloride 118, GFR 54. Glucose 113 alkaline phosphatase 270. Assessment And Plan: 1.Right hip dislocation versus closed reduction, have been resolved. 2.Severe back pain, etiology? I will proceed with a lumbar spine x-ray and given the finding we may consider MRI of the spine. The patient was already on Dilaudid and the p.r.n. oxycodone. 3.History of chronic obstructive pulmonary disease, controlled. No shortness of breath. 4.Microcytic anemia. I will check iron profile. 5.History of transient ischemic attack. 6.Deep vein thrombosis prophylaxis, on Lovenox. 7.History of hypertension but blood pressure normal, off medication. GOPI/DONA Voice ID: [id number] Report ID: [id number]
--- NOTE | 2018-03-05 19:35 | OP ---
Date of Procedure: 03/05/2018 Surgeon: Salvador Hager MD Preoperative Diagnosis: Right dislocated total hip arthroplasty. Postoperative Diagnosis: Right dislocated total hip arthroplasty. Procedure Performed: Right total hip arthroplasty closed reduction under anesthesia. Estimated Blood Loss: 0 cc. Complications: There were no complications. Specimens: No pathology specimens sent. Indication For Operation: Ms. Jacome is a 73-year-old female who unfortunately has had a second epis ode of a dislocated hip, both of these being approximately a month after her total hip arthroplasty. She was transferred from an outside facility. I have spoken with her operative surgeon and the plan is to reduce the hip. Further treatment of the hip will be directed by her hip arthroplasty surgeon on a nonemergent basis. She does have pain at the hips. Also complains of some pain in the back. However, the pain in the back is nonfocal. She does have x-rays taken, which demonstrated a dislocat ed right total hip arthroplasty. All risks, benefits, and alternatives to total hip arthroplasty red uction have been discussed with the patient under anesthesia. She states she understands everything as presented and wished to proceed. Description Of Procedure: The patient was taken to the operating room, placed in supine position. G eneral anesthesia was obtained by the Anesthesia staff. Following this, C-arm was brought in which e stablishes a good view of the hip demonstrating continued persistent dislocation. This was followed by some simple downward traction to assess for the mobility of the hip as well as the possibility saundra t may relocate with this. The hip does not appear to move much at all with simple downward traction. Following this, the hip was then brought up to approximately 30 degrees and with some internal rota tion, downward traction then relocates the hip without much significant difficulty. Following this, she was then awakened and taken to the recovery room in good condition. There were no complications. SE/MODL Voice ID: [id number] Report ID: [id number]
[2018-03-05] MEDS: ACETAMINOPHEN 325 MG TABLET PO PRN (20:41)
--- NOTE | 2018-03-06 03:21 | CON ---
Date of Consultation: 03/05/2018 History Of Present Illness: This is my first time seeing this patient to my knowledge. She is a 73- year-old female who approximately a month ago underwent a total hip arthroplasty by another surgeon. She did fairly well for a few weeks. Unfortunately, she sustained a dislocation of her hip, which w as relocated in the operating room by her operating physician without apparent difficulty or complica tions. She then was prescribed an abduction orthosis. She describes her initial dislocation as comi ng out from a chair with immediate pain, she describes this pain. She was wearing her orthosis fairl y regularly per her report, but she said it began to make her back hurt. Therefore, she says she con tacted someone who said that she should be able to take it off at times. Eventually, she states that it was really not essential for her to use it. I am somewhat unsure of the exact interchange as thi s is the patient's history. Unfortunately, on , she was again trying to get up from the bed and sustained more pain. She went to an outside facility where x-rays were taken, which demonstrated a dislocated total hip arthroplasty. She was then transferred to our facility at [facility], which is a facility where her operating physician normally worked. He unfortunately is not in town, and I am therefore asked to see her. Physical Examination: On physical examination, she complains of some back pain; however, it is not focal. She has pain wit h any movement or manipulation of the right lower extremity. She has a well-healed total knee arthro plasty scar as well as a healed hip arthroplasty scar on the right. She does have motion of her toes and nerve function appears to be intact. Review of x-rays demonstrate a dislocated total hip arthro plasty. All risks, benefits, and alternatives to reduction under anesthesia were discussed with the patient. She states she understands things as presented and would like to proceed. All of her questions were otherwise answered. CONCEPCIÓN Voice ID: [id number] Report ID: [id number]
[2018-03-06] MEDS: NA CHLORIDE 0.9% 1,000 ML IV SCH ×3 (04:18→21:07)
[2018-03-06] MEDS: OXYCODONE HCL 5 MG TAB PO PRN (05:26)
[2018-03-06 05:40] LABS: Absolute Monocytes 0.7 K/uL (0.1-1.3); Absolute Neutrophil 5.3 K/uL (1.8-8.0); Basophils % 0.9 % (0-1.3); Eosinophils % 5.2 % (0-4.4); Hematocrit 30.1 % (36.0-45.0); Lymphocytes % 22.9 % (15.3-44.8); MCH 26.9 pg (27.0-35.0); MCV 82.9 fL (80-100); MPV 8.2 fL (7.6-11.3); Monocytes % 8.6 % (3.3-12.3); RBC Red Blood Cell Count 3.63 M/uL (3.86-4.86)
[2018-03-06 05:57] LABS: Albumin 2.3 g/dL (3.4-5.0); Bilirubin Total 0.3 mg/dL (0.2-1.0); Potassium 4.2 mmol/L (3.5-5.1); Protein, Total 6.1 g/dL (6.4-8.2)
[2018-03-06 06:43] LABS: Blood Morphology Comment NOT SEEN (NOT SEEN); Platelet Estimate ADEQ
[2018-03-06] MEDS: ENOXAPARIN 30 MG/0.3 ML SQ SCH (08:16)
[2018-03-06] MEDS: HYDROMORPHONE HCL 1 MG/ML INJ IV PRN ×4 (10:07→21:50)
--- NOTE | 2018-03-06 18:21 | PN ---
Subjective: Currently, the patient lying in bed. She looks a little bit more comfortable than yeste rday, but she continue to have severe lower back pain. Lumbar spine x-ray done ordered yesterday, bu t it was not done due to the fact that the patient had recent hip dislocation and MRI was not availab le over the weekend. Her appetite is good. Normal bowel movement. Objective: Vital Signs: Blood pressure is 144/60, respiratory rate 16, pulse 75, temperature 99.3. General: She is currently alert and oriented x3. Does not look in any distress. HEENT: Atraumatic, normocephalic. PERRLA. Oral mucosa is moist. Neck: Supple. No JVD. No bruits. Chest: Clear to auscultation. Good air entry. Heart: Regular rate and rhythm. S1, S2 normal. No gallop or murmur. Abdomen: Soft, nontender. No masses. No hepatosplenomegaly. Positive bowel sounds. Extremities: No clubbing, cyanosis, or edema. No calf tenderness. Neurologic: Grossly intact. Laboratory Data: Today, CBC: Hemoglobin 9.8, platelets 374, normal white blood cells. Chemistry wi thin normal except for chloride 108, GFR of 61, total protein of 6.1. Assessment And Plan: 1.Right hip dislocation, status post closed reduction by orthopedic, pain resolved at this point. 2.Severe lower back pain. I ordered lumbar spine x-ray yesterday, but it was not possible to be don e due to the recent hip dislocation. Radiologist brian was worried about another dislocation. So, I will proceed with MRI of the lumbar spine tomorrow morning. In the mean time, patient on Dilaudid an d p.r.n. oxycodone. 3.Chronic obstructive pulmonary disease, emphysema history, controlled; stable at this point. 4.Microcytic anemia. Iron profile was consistent with anemia of chronic disease with normal ferriti n. 5.Deep venous thrombosis prophylaxis, on Lovenox. 6.Hypertension, slightly worse today. I will start patient on low dose of Norvasc. 7.Depression. I will resume the patient on Prozac and p.r.n. Ativan at nighttime. 8.Discharge plan based on ortho recommendation, most likely home or rehab after MRI of the lower yohan k done tomorrow and of course, depend on the results of that. MT/DONA Voice ID: [id number] Report ID: [id number]
[2018-03-06] MEDS: ACETAMINOPHEN 325 MG TABLET PO PRN (21:05)
[2018-03-06] MEDS: ATORVASTATIN 10 MG TAB PO SCH (21:05)
[2018-03-06] MEDS: LORAZEPAM 0.5 MG TABLET PO SCH (21:06)
[2018-03-07] MEDS: HYDROMORPHONE HCL 1 MG/ML INJ IV PRN ×5 (02:17→20:04)
[2018-03-07] MEDS: NA CHLORIDE 0.9% 1,000 ML IV SCH ×2 (06:28→20:06)
[2018-03-07] MEDS: IPRATROPIUM BROM 0.5MG/2.5ML IH SCH (07:33)
[2018-03-07] MEDS: ALBUTEROL 2.5 MG/3 ML NEB SOL NEB SCH (08:00)
[2018-03-07] MEDS: FLUOXETINE 20 MG CAP PO SCH (08:36)
[2018-03-07] MEDS: AMLODIPINE 5 MG TAB PO SCH (08:36)
[2018-03-07] MEDS: CYCLOBENZAPRINE 10 MG TAB PO SCH (08:36)
[2018-03-07] MEDS: ENOXAPARIN 30 MG/0.3 ML SQ SCH (08:37)
[2018-03-07] MEDS: OXYCODONE HCL 5 MG TAB PO PRN (09:47)
--- NOTE | 2018-03-07 11:10 | RAD REPORT ---
EXAM DESCRIPTION: MRI - Lumbar Spine Wo Con - 03/07/2018 10:53 am CLINICAL HISTORY: Persistent back pain, recurring hip dislocation COMPARISON: None. TECHNIQUE: Sagittal T1-weighted, T2-weighted and T2-STIR weighted sequences were obtained. Axial T1 -weighted and heavily T2-weighted sequenceswere obtained through the lumbar disc levels. FINDINGS: Lumbar bodies are normal in height and normal in AP alignment. There is a left convex scol iotic curvature present. No marrow edema or marrow replacing process. No paraspinal mass. Conus is normal with no clumping or thickening of the cauda equina. T12-L1 level: Minimal disc bulge change with no herniation. No canal or foramen stenosis. L1-2 level: Minimal disc bulge with no herniation. No canal or significant foraminal stenosis. L2-3 level: Disc is desiccated. No herniation or significant disc bulge. No canal or foramen stenosis . L3-4 level: Disc is desiccated with mild disc bulge and endplate spurring in the central canal. No ce ntral spinal stenosis. Facet degenerative changes present moderate in degree. There is mild mass effe ct on the lateral aspects the thecal sac but no overall central spinal stenosis and no significant fo raminal encroachment. L4-5 level: Disc is desiccated with a minimal loss in disc height. Disc bulge changes are minimal. No significant foraminal stenosis. Patient does have advanced facet joint degenerative change. There is fluid in the facet joints. L5-S1 level: Minimal disc bulge. Desiccation noted. No herniation. No central spinal stenosis. Mild f oraminal encroachment changes present on the left. Perineural fat is still present. Patient has promi nent facet joint degenerative change on the left. IMPRESSION: No disc herniation is present. No central spinal stenosis. Patient has significant lower lumbar facet joint degenerative change particularly on the left at L5-S 1. There is mild left L5-S1 foraminal stenosis.
--- NOTE | 2018-03-07 13:15 | P.PN ---
Subjective Date of Service: 03/07/18 Chief Complaint: Hip dislocation Patient seen and examined at bedside with RN. Chart reviewed. Case discussed with orthopedic surgeon at this time. Patient complaining of having a lot of back pain along with left-sided hip pain. Currently awaiting physical therapy evaluation and case management evaluation for possible placement into inpatient rehab versus jail facility Review of Systems 10-point ROS is otherwise unremarkable Physical Examination - Vital Signs Temperature: 98.1 F Blood Pressure: 149/66 Pulse: 81 Respirations: 20 Pulse Ox (%): 95 - Physical Exam General: Alert, Mild distress HEENT: Atraumatic, PERRLA, EOMI Neck: Supple, JVD not distended Respiratory: Clear to auscultation bilaterally, Normal air movement Cardiovascular: Regular rate/rhythm, Normal S1 S2 Gastrointestinal: Normal bowel sounds, No tenderness Musculoskeletal: Tenderness Integumentary: No rashes Neurological: Normal speech, Normal tone, Normal affect Lymphatics: No axilla or inguinal lymphadenopathy - Studies Medications List Reviewed: Yes Assessment And Plan - Plan Assesment and Plan: 1.Right hip dislocation, -status post closed reduction by orthopedic, -pain mgmt with Oxycodone and Dilaudid -Pending placement and PT consult 2.Severe lower back pain -Lumbar MRI pending at this time 3.Chronic obstructive pulmonary disease, emphysema history, controlled; -stable at this point. 4.Microcytic anemia. -Iron profile was consistent with anemia of chronic disease with normal ferritin. 5.Deep venous thrombosis prophylaxis, on Lovenox. 6.Hypertension, -Stable now 7.Depression. -on Prozac and p.r.n. Ativan at nighttime. Dispo: Awaiting clinical improvement at this time. PT recommendations pending at this time as well. Patient most likely will need to be in inpatient rehab versus jail facility. Case management to follow the patient as well full overall with lumbar MRI as well. Discharge Plan: Transfer Plan to discharge in: 72 Hours - Code Status/Comfort Care Code Status Assessed: Yes Critical Care: No
--- NOTE | 2018-03-07 15:32 | RAD REPORT ---
EXAM DESCRIPTION: RAD - Fluoroscopy <1 Hour - 03/05/2018 9:36 am CLINICAL HISTORY: CLOSED REDUCTION RIGHT HIP COMPARISON: No comparisons FINDINGS: Fluoroscopic imaging is submitted from close reduction right hip. Details of the procedur e not available. Fluoroscopy time: 0.1 minutes. Four images were obtained.
[2018-03-07] MEDS: LORAZEPAM 0.5 MG TABLET PO SCH (20:05)
[2018-03-07] MEDS: ATORVASTATIN 10 MG TAB PO SCH (20:05)
[2018-03-08] MEDS: HYDROMORPHONE HCL 1 MG/ML INJ IV PRN ×7 (01:58→23:47)
[2018-03-08] MEDS: NA CHLORIDE 0.9% 1,000 ML IV SCH ×2 (06:02→17:00)
[2018-03-08] MEDS: ALBUTEROL 2.5 MG/3 ML NEB SOL NEB SCH (08:00)
[2018-03-08] MEDS: IPRATROPIUM BROM 0.5MG/2.5ML IH SCH (08:01)
[2018-03-08] MEDS: CYCLOBENZAPRINE 10 MG TAB PO SCH (08:46)
[2018-03-08] MEDS: FLUOXETINE 20 MG CAP PO SCH (08:47)
[2018-03-08] MEDS: AMLODIPINE 5 MG TAB PO SCH (08:47)
[2018-03-08] MEDS: ENOXAPARIN 30 MG/0.3 ML SQ SCH (08:48)
--- NOTE | 2018-03-08 15:17 | P.PN ---
Subjective Date of Service: 03/08/18 Chief Complaint: Hip dislocation Patient seen and examined at bedside with RN. Chart reviewed. Case discussed with orthopedic surgeon at this time. Currently working with physical therapy states that pain is well controlled on before. Currently pending placement at this time Review of Systems 10-point ROS is otherwise unremarkable Physical Examination - Vital Signs Temperature: 98.9 F Blood Pressure: 114/53 Pulse: 76 Respirations: 17 Pulse Ox (%): 95 - Physical Exam General: Alert, In no apparent distress HEENT: Atraumatic, PERRLA, EOMI Neck: Supple, JVD not distended Respiratory: Clear to auscultation bilaterally, Normal air movement Cardiovascular: Regular rate/rhythm, Normal S1 S2 Gastrointestinal: Normal bowel sounds, No tenderness Musculoskeletal: Tenderness Integumentary: No rashes Neurological: Normal speech, Normal tone, Normal affect Lymphatics: No axilla or inguinal lymphadenopathy - Studies Medications List Reviewed: Yes Assessment And Plan - Plan Assesment and Plan: 1.Right hip dislocation, recurrent at this time -status post closed reduction by orthopedic, -pain mgmt with Oxycodone and Dilaudid -pending placement at this time -patient will benefit from inpatient rehab at this time due to recurrent history of dislocation and given the fact that the muscle joint and that area is probably weekend and patient is high risk for fall and repeated dislocation. Patient will need observe therapy given the chronic condition along with fall precautions and extensive therapy so the patient return back to her baseline. 2.Severe lower back pain -Lumbar MRI negative for any acute process 3.Chronic obstructive pulmonary disease, emphysema history, controlled; -stable at this point. 4.Microcytic anemia. -Iron profile was consistent with anemia of chronic disease with normal ferritin. 5.Deep venous thrombosis prophylaxis, on Lovenox. 6.Hypertension, -Stable now 7.Depression. -on Prozac and p.r.n. Ativan at nighttime. Dispo: Awaiting clinical improvement at this time. Patient pending inpatient rehab at this time. As mentioned before patient will benefit from inpatient rehab to get her to discharge home at her baseline and to get the intensive therapy that she needs under strict supervision. Discharge Plan: Other Plan to discharge in: 48 Hours - Code Status/Comfort Care Code Status Assessed: Yes Critical Care: No
[2018-03-08] MEDS: LORAZEPAM 0.5 MG TABLET PO SCH (21:20)
[2018-03-08] MEDS: ATORVASTATIN 10 MG TAB PO SCH (21:20)
[2018-03-09] MEDS: NA CHLORIDE 0.9% 1,000 ML IV SCH ×3 (02:41→20:06)
[2018-03-09] MEDS: HYDROMORPHONE HCL 1 MG/ML INJ IV PRN ×6 (02:41→22:55)
[2018-03-09] MEDS: OXYCODONE HCL 5 MG TAB PO PRN (04:31)
[2018-03-09] MEDS: IPRATROPIUM BROM 0.5MG/2.5ML IH SCH (08:40)
[2018-03-09] MEDS: CYCLOBENZAPRINE 10 MG TAB PO SCH (09:15)
[2018-03-09] MEDS: AMLODIPINE 5 MG TAB PO SCH (09:15)
[2018-03-09] MEDS: ENOXAPARIN 30 MG/0.3 ML SQ SCH (09:15)
[2018-03-09] MEDS: FLUOXETINE 20 MG CAP PO SCH (09:15)
--- NOTE | 2018-03-09 13:42 | P.PN ---
Subjective Date of Service: 03/09/18 Chief Complaint: Hip dislocation Patient seen and examined at bedside with RN. Chart reviewed. Case discussed with orthopedic surgeon at this time. Currently working with physical therapy states that pain is well controlled on before. Currently pending placement at this time Physical Examination - Vital Signs Temperature: 98.1 F Blood Pressure: 164/65 Pulse: 80 Respirations: 18 Pulse Ox (%): 94 - Studies Medications List Reviewed: Yes Assessment And Plan - Plan Assesment and Plan: 1.Right hip dislocation, recurrent at this time -status post closed reduction by orthopedic, -pain mgmt with Oxycodone and Dilaudid -pending placement at this time -patient will benefit from inpatient rehab at this time due to recurrent history of dislocation and given the fact that the muscle joint and that area is probably weekend and patient is high risk for fall and repeated dislocation. Patient will need observe therapy given the chronic condition along with fall precautions and extensive therapy so the patient return back to her baseline. 2.Severe lower back pain -Lumbar MRI negative for any acute process 3.Chronic obstructive pulmonary disease, emphysema history, controlled; -stable at this point. 4.Microcytic anemia. -Iron profile was consistent with anemia of chronic disease with normal ferritin. 5.Deep venous thrombosis prophylaxis, on Lovenox. 6.Hypertension, -Stable now 7.Depression. -on Prozac and p.r.n. Ativan at nighttime. Dispo: Awaiting clinical improvement at this time. Patient pending inpatient rehab at this time. As mentioned before patient will benefit from inpatient rehab to get her to discharge home at her baseline and to get the intensive therapy that she needs under strict supervision.
--- NOTE | 2018-03-09 14:57 | P.PN ---
Subjective Date of Service: 03/09/18 Chief Complaint: Hip dislocation Patient seen and examined at bedside with RN. Chart reviewed. Case discussed with orthopedic surgeon at this time. Currently working with physical therapy states that pain is well controlled on before. Currently pending placement at this time Review of Systems 10-point ROS is otherwise unremarkable Physical Examination - Vital Signs Temperature: 98.1 F Blood Pressure: 164/65 Pulse: 80 Respirations: 18 Pulse Ox (%): 94 - Physical Exam General: Alert, In no apparent distress HEENT: Atraumatic, PERRLA, EOMI Neck: Supple, JVD not distended Respiratory: Clear to auscultation bilaterally, Normal air movement Cardiovascular: Regular rate/rhythm, Normal S1 S2 Gastrointestinal: Normal bowel sounds, No tenderness Musculoskeletal: No tenderness Integumentary: No rashes Neurological: Normal speech, Normal tone, Normal affect Lymphatics: No axilla or inguinal lymphadenopathy - Studies Medications List Reviewed: Yes Assessment And Plan - Plan Assesment and Plan: 1.Right hip dislocation, recurrent at this time -status post closed reduction by orthopedic, -pain mgmt with Oxycodone and Dilaudid -pending placement at this time -patient will benefit from inpatient rehab at this time due to recurrent history of dislocation and given the fact that the muscle joint and that area is probably weak and patient is high risk for fall and repeated dislocation. Patient will need to have observed rehab therapy given the chronic condition along with fall precautions. pt will benefit from extensive therapy so the patient return back to her baseline faster without any complications. . 2.Severe lower back pain -Lumbar MRI negative for any acute process 3.Chronic obstructive pulmonary disease, emphysema history, controlled; -stable at this point. 4.Microcytic anemia. -Iron profile was consistent with anemia of chronic disease with normal ferritin. 5.Deep venous thrombosis prophylaxis, on Lovenox. 6.Hypertension, -Stable now 7.Depression. -on Prozac and p.r.n. Ativan at nighttime. Dispo: Awaiting clinical improvement at this time. Patient pending inpatient rehab at this time. As mentioned before patient will benefit from inpatient rehab as it will allow her to be discharge home at her baseline and to get the intensive therapy that she needs under strict supervision due to high risk for repeated dislocations. Discharge Plan: Other Plan to discharge in: 48 Hours - Code Status/Comfort Care Code Status Assessed: Yes Critical Care: No
[2018-03-09] MEDS: LORAZEPAM 0.5 MG TABLET PO SCH (20:07)
[2018-03-09] MEDS: ATORVASTATIN 10 MG TAB PO SCH (20:07)
[2018-03-10] MEDS: HYDROMORPHONE HCL 1 MG/ML INJ IV PRN ×7 (02:29→22:48)
[2018-03-10 05:28] LABS: Magnesium 1.7 mg/dL (1.8-2.4); Phosphorus 3.4 mg/dL (2.5-4.9)
[2018-03-10 05:35] LABS: Urine Appearance CLEAR; Urine Bilirubin NEGATIVE (NEG); Urine Blood NEGATIVE (NEG); Urine Color YELLOW; Urine Glucose NEGATIVE (NEG); Urine Protein NEGATIVE (NEG); Urine Specific Gravity <=1.005 (1.005-1.030)
[2018-03-10 05:38] LABS: Urine Microscopic Reflex NO UMIC
[2018-03-10] MEDS ORDERED: MAGNESIUM SULFATE 1 gm IVPB 1 GM/100 ML BAG IV ONE (06:08)
[2018-03-10] MEDS: IPRATROPIUM BROM 0.5MG/2.5ML IH SCH (08:00)
[2018-03-10] MEDS: ENOXAPARIN 30 MG/0.3 ML SQ SCH (08:39)
[2018-03-10] MEDS: FLUOXETINE 20 MG CAP PO SCH (08:39)
[2018-03-10] MEDS: CYCLOBENZAPRINE 10 MG TAB PO SCH ×3 (08:40→21:20)
[2018-03-10] MEDS: AMLODIPINE 5 MG TAB PO SCH (08:40)
[2018-03-10] MEDS: NA CHLORIDE 0.9% 1,000 ML IV SCH (08:56)
--- NOTE | 2018-03-10 11:45 | P.PN ---
Subjective Date of Service: 03/10/18 Chief Complaint: Hip dislocation Patient seen and examined at bedside with RN. Chart reviewed. Case discussed with orthopedic surgeon at this time. Currently working with physical therapy today pain is not controlled. Having excruciating pain in her lumbar spine which is radiating down to her right leg as well. Currently pending placement at this time Review of Systems 10-point ROS is otherwise unremarkable Physical Examination - Vital Signs Temperature: 98.9 F Blood Pressure: 129/60 Pulse: 76 Respirations: 18 Pulse Ox (%): 99 - Physical Exam General: Alert, In no apparent distress HEENT: Atraumatic, PERRLA, EOMI Neck: Supple, JVD not distended Respiratory: Clear to auscultation bilaterally, Normal air movement Cardiovascular: Regular rate/rhythm, Normal S1 S2 Gastrointestinal: Normal bowel sounds, No tenderness Musculoskeletal: Tenderness Integumentary: No rashes Neurological: Normal speech, Normal tone, Normal affect Lymphatics: No axilla or inguinal lymphadenopathy - Studies Laboratory Data (last 24 hrs) 03/10/18 04:16: Sodium 142, Potassium 4.0, BUN 3 L, Creatinine 0.70, Glucose 95 , Phosphorus 3.4, Magnesium 1.7 L Medications List Reviewed: Yes Assessment And Plan - Plan Assesment and Plan: 1.Right hip dislocation, recurrent at this time -status post closed reduction by orthopedic -pain mgmt with Oxycodone and Dilaudid -pending placement at this time -patient will benefit from inpatient rehab at this time due to recurrent history of dislocation and given the fact that the muscle joint and that area is probably weak and patient is high risk for fall and repeated dislocation. Patient will need to have observed rehab therapy given the chronic condition along with fall precautions. pt will benefit from extensive therapy so the patient return back to her baseline faster without any complications. 2.Severe lower back pain -Lumbar MRI negative for any acute process consistent with chronic degenerative disease -will get a lumbar x-ray at this time since patient still continues to have excruciating pain to evaluate for any fractures 3.Chronic obstructive pulmonary disease, emphysema history, controlled; -stable at this point. 4.Microcytic anemia. -Iron profile was consistent with anemia of chronic disease with normal ferritin. 5.Deep venous thrombosis prophylaxis, on Lovenox. 6.Hypertension, -Stable now 7.Depression. -on Prozac and p.r.n. Ativan at nighttime. Dispo: Awaiting clinical improvement at this time. Patient pending inpatient rehab at this time. As mentioned before patient will benefit from inpatient rehab as it will allow her to be discharge home at her baseline and to get the intensive therapy that she needs under strict supervision due to high risk for repeated dislocations. Discharge Plan: Other Plan to discharge in: 48 Hours - Code Status/Comfort Care Code Status Assessed: Yes Critical Care: No
--- NOTE | 2018-03-10 12:28 | RAD REPORT ---
EXAM DESCRIPTION: RAD - Lumbar Spine - Single View - 03/10/2018 12:07 pm CLINICAL HISTORY: Back pain FINDINGS: Lateral view of the lumbar spine was requested. The bones are osteoporotic. No fracture or dislocation is seen Mild spondylosis is present
[2018-03-10 14:07] LABS: Absolute Lymphocytes (CBC) 1.3 K/uL (0.7-4.9); Absolute Monocytes 0.6 K/uL (0.1-1.3); Absolute Neutrophil 4.7 K/uL (1.8-8.0); Basophils % 1.2 % (0-1.3); Eosinophils % 6.9 % (0-4.4); Hematocrit 29.6 % (36.0-45.0); Lymphocytes % 18.8 % (15.3-44.8); MCH 26.8 pg (27.0-35.0); MCV 82.3 fL (80-100); MPV 8.3 fL (7.6-11.3); Monocytes % 7.8 % (3.3-12.3)
[2018-03-10 14:14] LABS: Albumin 2.3 g/dL (3.4-5.0); Bilirubin Total 0.3 mg/dL (0.2-1.0); Potassium 3.7 mmol/L (3.5-5.1); Protein, Total 6.1 g/dL (6.4-8.2)
[2018-03-10] MEDS: LORAZEPAM 0.5 MG TABLET PO SCH (21:19)
[2018-03-10] MEDS: ATORVASTATIN 10 MG TAB PO SCH (21:19)
[2018-03-11] MEDS: HYDROMORPHONE HCL 1 MG/ML INJ IV PRN ×2 (02:13→10:26)
[2018-03-11 06:36] LABS: Magnesium 1.9 mg/dL (1.8-2.4); Potassium 3.8 mmol/L (3.5-5.1)
[2018-03-11] MEDS: IPRATROPIUM BROM 0.5MG/2.5ML IH SCH (08:23)
[2018-03-11] MEDS: AMLODIPINE 5 MG TAB PO SCH (09:14)
[2018-03-11] MEDS: FLUOXETINE 20 MG CAP PO SCH (09:14)
[2018-03-11] MEDS: CYCLOBENZAPRINE 10 MG TAB PO SCH ×2 (09:15→14:32)
[2018-03-11] MEDS: ENOXAPARIN 30 MG/0.3 ML SQ SCH (09:15)
--- NOTE | 2018-03-11 12:27 | P.DS ---
Admission Date: 03/04/18 Discharge Date: 03/11/18 Disposition: TRANSFER TO INPATIENT REHAB Discharge Condition: GOOD Reason for Admission: Hip dislocation Consultations: Orthopedics Procedures: ORIF Brief History of Present Illness: Patient is a 73-year-old female who had a total hip arthroplasty in January. This was done on the right hip. Since that time patient has has some issues with hip dislocation. She had a pop out of place a few weeks ago. This has happened again last night. Patient was brought into the emergency room at [facility]. Patient was transferred to our facility as they did not have an orthopedic flight communications specialist. Will go ahead and make patient NPO after midnight for rearticulation of her hip joint. Continue with pain control at this time. Also will start physical therapy once this is done. She also need a pillow to keep her hips from crossing over. Hospital Course: Discharge diagnosis 1.Right hip dislocation, recurrent at this time 2.Severe lower back pain secondary to DJD 3.Chronic obstructive pulmonary disease, emphysema history, controlled; 4.Microcytic anemia secondary to chronic disease. 5.Hypertension, 6.Depression. Hospital Course Overall during the hospital stay patient remained stable Patient was initially admitted to the hospital for a right hip dislocation. Orthopedics surgeon was consulted. Patient had close reduction of her right hip dislocation. Patient tolerated the procedure well. Patient had physical therapy consulted here in the hospital. Recommended that patient will benefit from inpatient rehab. Due to high risk for recurrent dislocation and fall. Patient then was accepted any inpatient rehab and was transferred there under stable condition. Patient while here in the hospital also complained of having low back pain. Patient had an MRI an x-ray done of the lower back which was both consistent with degenerative changes. Patient was educated extensively on the appropriate use of pain management and disease process causing her lumbar spine pain. Patient demonstrated understanding and then was transferred to acute inpatient rehab for further care. All other chronic conditions remained stable while here in the hospital Vital Signs/Physical Exam: Temp Pulse Resp BP Pulse Ox 97.4 F 73 18 126/59 L 90 L 03/11/18 08:00 03/11/18 09:14 03/11/18 08:00 03/11/18 09:14 03/11/18 08:00 General: Alert, In no apparent distress HEENT: Atraumatic, PERRLA, EOMI Neck: Supple, JVD not distended Respiratory: Clear to auscultation bilaterally, Normal air movement Cardiovascular: Regular rate/rhythm, Normal S1 S2 Gastrointestinal: Normal bowel sounds, No tenderness Musculoskeletal: Tenderness (Right Hip and Back ) Integumentary: No rashes Neurological: Normal speech, Normal tone, Normal affect Lymphatics: No axilla or inguinal lymphadenopathy Laboratory Data at Discharge: WBC 7.2 K/uL (4.3-10.9) D 03/10/18 13:46 Hgb 9.6 g/dL (12.0-15.0) L 03/10/18 13:46 Hct 29.6 % (36.0-45.0) L 03/10/18 13:46 Plt Count 360 K/uL (152-406) 03/10/18 13:46 PT 12.3 SECONDS (9.5-12.5) 03/05/18 04:59 INR 1.04 03/05/18 04:59 APTT 29.5 SECONDS (24.3-36.9) 03/05/18 04:59 Sodium 142 mmol/L (136-145) 03/11/18 06:00 Potassium 3.8 mmol/L (3.5-5.1) 03/11/18 06:00 BUN 4 mg/dL (7-18) L 03/11/18 06:00 Creatinine 0.80 mg/dL (0.55-1.3) 03/11/18 06:00 Glucose 94 mg/dL (74-106) 03/11/18 06:00 Phosphorus 3.4 mg/dL (2.5-4.9) 03/10/18 04:16 Magnesium 1.9 mg/dL (1.8-2.4) 03/11/18 06:00 Total Bilirubin 0.3 mg/dL (0.2-1.0) 03/10/18 13:46 AST 16 U/L (15-37) 03/10/18 13:46 ALT 17 U/L (12-78) 03/10/18 13:46 Alkaline Phosphatase 154 U/L (45-117) H 03/10/18 13:46 Home Medications: Albuterol Sulfate [Proair Hfa] 1 lore IH DAILY 03/05/18 Atorvastatin Calcium [Lipitor*] 10 mg PO BEDTIME 03/05/18 Cyclobenzaprine [Flexeril*] 1 tab PO DAILY 03/05/18 Fluoxetine HCl [Prozac] 1 tab PO DAILY 03/05/18 Ipratropium/Albuterol Sulfate [Iprat-Albut 0.5-3(2.5) mg/3 ml] 1 lore IH DAILY LORazepam [Ativan*] 1 tab PO BEDTIME 03/05/18 Naproxen [Naprosyn] 1 tab PO DAILY 03/05/18 Amlodipine [Norvasc*] 5 mg PO DAILY #30 tab 03/11/18 Oxycodone HCl [Oxyir (Oxycodone HCl Imr)*] 5 mg PO Q4H PRN #30 tab 03/11/18 New Medications: Amlodipine [Norvasc*] 5 mg PO DAILY #30 tab Oxycodone HCl [Oxyir (Oxycodone HCl Imr)*] 5 mg PO Q4H PRN #30 tab PRN Reason: Pain Patient Discharge Instructions: Please f.u with Dr Hager in 1 to 2 week post discharge Diet: Regular Activity: Ad abdullahi Followup: Salvador Hager MD [ACTIVE - CAN ADMIT] - 1 Week
[2018-03-11 14:57] VITALS: BP 123/59; TEMP 98.8
[2018-03-11 15:37] VITALS: O2SAT 90
[2018-03-11] MEDS ORDERED: DOCUSATE NA 100 MG CAP PO SCH (21:00)
== END 2018-03-11 15:04 | DRG 561 ==
LOC: OBSVTOIN 22:03 → 2ND 22:03
PROVIDERS: ADMIT Hospitalist; ATTEND Hospitalist
PROC: 0SW9XJZ Revision of Synthetic Substitute in Right Hip Joint, External Approach (ICD-10-PCS; principal; 2018-03-05 09:00)
DX: T84.020A Dislocation of internal right hip prosthesis, initial encounter (principal); J44.9 Chronic obstructive pulmonary disease, unspecified; D50.9 Iron deficiency anemia, unspecified; Z86.73 Personal history of transient ischemic attack (TIA), and cerebral infarction without residual deficits; Z96.612 Presence of left artificial shoulder joint; Z96.653 Presence of artificial knee joint, bilateral; Z88.0 Allergy status to penicillin; Z88.2 Allergy status to sulfonamides; F32.9 Major depressive disorder, single episode, unspecified; M47.896 Other spondylosis, lumbar region
CPT/HCPCS: 36415; 72020; 72148; 76000; 80048; 80053; 81003; 82728; 83540; 83735; 84100; 84466; 85025; 85610; 85730; 94640; 97163; 97760; J0330; J0690; J1170; J1650; J2405; J3010; J3475; J7030

== ENCOUNTER 2018-03-11 10:48 | Inpatient (IN) | payer OTHER ==
--- NOTE | 2018-03-11 14:03 | R.PREADM ---
SCREENING DATE AND TIME 03/11/2018 10:54 (CDT) ANTICIPATED REHAB ADMISSION DATE 03/13/2018 REFERRING FACILITY [facility] REFERRAL DATE AND TIME 03/11/2018 10:54 (CDT) ACUTE ADMIT DATE 03/04/2018 Previous Rehabilitation(s): No. REFERRING PHYSICIAN Smitha Leong REHAB FACILITY [facility] CLINICAL LIAISON Ulises Kulkarni PHYSICIAN REVIEWER Dr. Richi Fitzgerald M.D. MR# [id number] NAME [place] ADDRESS [address] [facility] [id number] DATE OF 1945 AGE 73 SSN# [id number] GENDER female MARITAL STATUS Unknown RACE white ADMIT FROM 02 - [facility] PRE-HOSPITAL LIVING SETTING 01 - Home (private home/apt. board/care, assisted living, custodial, transitional living) HOME TYPE AND DETAILS Type of home: mobile home # of steps to enter the residence: 0 # of steps within the residence: 0 # of levels in the residence: 1 PRE-HOSPITAL LIVING WITH Family/Relatives FAMILY SUPPORT Yes PRIMARY FAMILY CONTACT NAME Favio Ny PRIMARY FAMILY CONTACT PHONE PHONE PRIMARY FAMILY CONTACT ON ADM.? no IS PRIMARY FAMILY CONTACT AUTH. REP.? no 1ST EMERGENCY CONTACT Favio Ny 1ST CONTACT PHONE PHONE 1ST CONTACT ON ADM. no IS 1ST CONTACT AUTH. REP.? no PHONE 2ND CONTACT ON ADM.? no PATIENT EMPLOYMENT STATUS Retired (for age) PATIENT EMPLOYER No Employer PAYOR INFORMATION: 1ST PAYOR NAME [employer] 1ST PAYOR PHONE 1ST PAYOR INJURY/ILLNESS DUE TO ACCIDENT? No ANOTHER DEMOCRAT RESPONSIBLE? No PRIMARY REHAB/ACUTE DIAGNOSIS: right hip dislocation ONSET DATE 03/04/2018 REHAB IMPAIRMENT CATEGORY (JONATHAN): 09 Orthopaedic (Ortho) does NOT meet 60% rule AFFECTED EXTREMITIES: RLE PRIMARY DIAGNOSIS-RELATED SURGERIES: No surgeries related to the primary diagnosis were performed. COMORBID REHAB/ACUTE DIAGNOSES: - Non-Tiered hypertension dyslipidemia - N/A total hip arthroplasty on the left COPD TIA INTERVENTIONS: - Hypertension Fluid management Medications VS RISK FOR COMPLICATIONS: - Hypertension CVA Hypotension NV TIA SUMMARY OF ACUTE HOSPITALIZATION: Pt. is a 73 yo Right-handed white female. On 03/04/2018 she was admitted to [facility] with diagnosis right hip dislocati on. Her impairment category is Orthopaedic Disorders 08 - Other Orthopaedic (08.9). Pre-morbidly, Pt. was independent/mod-I in Self-Care, Sphincter Control, Transfers Control, Communica tion, Social Cognition, and Locomotion; and she had good Sphincter Control. Currently, she has deficits of Balance, Endurance, Safety Awareness, Transfers Control, Locomotion, a nd Self-Care. Pt. is now referred to [facility] for acute in-patient rehabilitation in order to maximize patient's functional independence in activities of daily living, strength, ROM, and mobi lity. Patient has realistic goal of being discharged at assistance level 6-Michael to reside at Home with Fam larry/Relatives. PAST MEDICAL HISTORY COPD TIA dyslipidemia hypertension total hip arthroplasty on the left depression PAST SURGICAL HISTORY: candelario German left shoulder replacement 2x replacement right knee 1x replacement left knee MEDICATION ALLERGIES: penicillins SULFA ENVIRONMENTAL ALLERGIES: - Substance Allergies None Known - Other Allergies None Known CODE STATUS: Full code WEIGHT/HEIGHT/BMI: WEIGHT 184 lbs HEIGHT 4' 11" BMI 37.2 DIET: - Diet Type Regular - Diet - Solid Texture Regular - Diet - Liquid Texture Regular - Tube Feed N/A REVIEW OF SYSTEMS: - Gen Alert and awake Lying in bed No apparent distress Oriented to: person, time, and place - Vital Signs Vital signs stable, afebrile - CVS RRR VITAL SIGNS Temperature: 97.4 F SBP/DBP: 126/59 Pulse: 73 Resp: 18 Vital signs stable, afebrile CURRENT SPHINCTER CONTROL: Pre-hospital bladder status: continent # of bladder accidents in the last 7 days prior to screenin Pre-hospital bowel status: continent # of bowel accidents in the last 7 days prior to screenin Last Bowel Movement Date: 03/11/2018 DETAILED CURRENT FUNCTIONAL STATUS: - Bladder accident frequency: Ind - No accidents in the past 7 days - Bowel accident frequency: Ind - No accidents in the past 7 days - Walking score based on distance walked: 0(N/A) - Wheelchair score based on distance traveled: 0(N/A) FUNCTIONAL STATUS: - Self-Care A. Eating Ind Ind B. Grooming Ind sup C. Bathing Ind Yumiko D. Dressing - Upper Ind sup E. Dressing - Lower Ind modA F. Toileting Ind modA - Sphincter Control G: Bladder control Ind Ind H: Bowel control Ind Ind - Transfers Control I. Bed/Chair/Wheelchair Ind Yumiko J. Toilet Ind Yumiko K. Tub/Shower Ind Yumiko - Locomotion L. Walk/Wheelchair (B) Michael modA M. Stairs Ind ADNO - Communication N. Comprehension (B) Ind Michael O. Expression (B) Ind Michael - Social Cognition P. Social Interaction Ind Michael Q. Problem Solving Ind Michael R. Memory Ind Michael - Endurance Fair - Balance Fair - Safety Awareness Poor CURRENT FUNC. DEFICITS: Balance, Endurance, Safety Awareness, Transfers Control, Locomotion, and Self-Care THERAPY NOTES FROM ACUTE CARE: Attached. SPECIAL NEEDS: - Safety Concerns Skin breakdown precautions needed due to skin breakdown risk PRECAUTIONS: - Weight Bearing Precaution WBAT right LE PATIENT NEEDS ACTIVE AND ONGOING THERAPEUTIC INTERVENTION OF MULTIPLE THERAPY DISCIPLINES, INCLUDING: - Occupational Therapy Evaluate and Treat. - Physical Therapy Evaluate and Treat. PATIENT NEEDS CLOSE MEDICAL SUPERVISION BY A REHABILITATION PHYSICIAN FOR: Bowel and Bladder Management Coordination of Treatment Team Medical and Co-Morbidity Management PATIENT REQUIRES 24X7 REHAB NURSING FOR MEDICAL AND FUNCTIONAL MGT. OF THE FOLLOWING DEFICITS: ADL's Ambulation Bowel and Bladder Management Cognition Communication Disease Management Medication Management Patient/Family Education Providing Safe Environment Transfers PATIENT REQUIRES INTENSIVE, COORDINATED INTERDISCIPLINARY APPROACH TO REHAB: Arranging Home Equipment/Services Discharge Planning Family Intervention/Training Strategic Manager/Case Management PATIENT REHAB POTENTIAL: Expected level of measurable improvement will be of a practical value to patient's functional capacit y or adaptations to impairments Has a viable Discharge Plan Medically appropriate; condition is sufficiently stable to participate in intensive rehab program Patient is able and expected to receive 3 hours of individualized therapy daily on at least 5 of ever y 7 days Patient's prognosis for significant practical improvement within a reasonable period of time appears Good DISCHARGE PLAN: - Estimated Length of Stay (days) 12. - Consensus on plan Discharge plan has been discussed with primary caregiver. Patient/Family is in agreement with the alejandra n. Primary caregiver is in agreement with the plan. - Patient/Family Goals Return home with assistance. - Planned Living Setting Upon Discharge Home, to live with Family/Relatives. RECOMMENDED CARE LEVEL: IRF RECOMMENDATION DETAILS: Recommended Admission to Comprehensive Rehabilitation Program to Increase Functional [place] SCREENER'S COMPLETENESS CONFIRMATION: - Screening Confirmation The patient data collection on this preadmission screening form is finished PHYSICIANS REVIEW AND ADMISSION DETERMINATION Admit - Based on my review of the Pre-Admission Screening results, in my medical judgment and experie nce, I concur with the findings and recommend admission to [facility], as this patient requires an IRF level of care. SIGNATURE PANEL: Clinical Liaison - [electronically] signed by Alina Bishop on 03/11/2018 at 12:04 (CDT) Clinical Liaison - [electronically] signed by Ulises Kulkarni on 03/11/2018 at 13:42 (CDT) Physician Reviewer - [electronically] signed by Dr. Richi Fitzgerald M.D. on 03/11/2018 at 14:02 (CDT )
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
--- OUTSIDE RECORDS SUMMARY | 2018-03-11 14:53 | XMS REPORT | Continuity of Care Document ---
:1945 Author Organization [facility] Care Team Providers Name Role Phone MD Luigi, Juan Unavailable Unavailable Insurance Providers Payer name Policy type / Policy ID Covered green party ID Policy Garcia Coverage type [facility] MCR PFFS PRIM UNITED HEALTHCARE [...] Location Date Office Visit Juan Meyers MD [facility] [place] [facility] Jan 21, 2015 Allergies, Adverse Reactions, [...] 2014Jul 30, sodium, serum SODIUM 142 mmol/L [phone] Jul 30, potassium, serum POTASSIUM 4.2 mmol/L 3.3-5.0 2014Jul 30, urea nitrogen, BUN 14 mg/dL -2014Jul 30, creatinine, serum CREATININE 1.17 mg/dL 0.46-1.20 2014Jul 30, calcium, serum CALCIUM 9.5 mg/dL 8.8-10.0 2014November 02, sodium, serum SODIUM 138 mmol/L [phone] November 02, potassium, serum POTASSIUM 5.1 mmol/L [...]
--- OUTSIDE RECORDS SUMMARY | 2018-03-11 14:54 | XMS REPORT | Continuity of Care Document ---
:1945 Author Organization [facility] Care Team Providers Name Role Phone MD Luigi, Juan Unavailable Unavailable Insurance Providers Payer name Policy type / Policy ID Covered democrat ID Policy Garcia Coverage type [facility] MCR PFFS PRIM Language Learning Class - MEDICARE SOLUTIONS ESS CARE IMPROVEMENT PL[place] - [place] MEDICARE ADVANTAG Language Learning Class - MEDICARE AI Patents ESS Language Learning Class - MEDICARE SOLUTIONS E[place] CARE IMPROVEMENT [place] MED[place] AD[place] Language Learning Class - MEDICARE AI Patents ESS Language Learning Class - MEDICARE SOLUTIONS ESS Language Learning Class - MEDICARE SOLUTIONS [facility] Language Learning Class - MEDICARE SOLUTIONS [facility] Language Learning Class - MEDICARE SOLUTIONS [facility] Language Learning Class - MEDICARE SOLUTIONS [facility] Language Learning Class - MEDICARE AI Patents [facility] UNITED HEALTHCARE - MEDICARE SOLUTIONS [facility] Encounters Encounter Performer Location Date Office Visit Juan Meyers MD [facility] [place] [facility] Jul 16, 2014 Allergies, Adverse Reactions, [...]
--- OUTSIDE RECORDS SUMMARY | 2018-03-11 14:54 | XMS REPORT | Continuity of Care Document ---
:1945 Author Organization [facility] Care Team Providers Name Role Phone MD Luigi, Juan Unavailable Unavailable Insurance Providers Payer name Policy type / Policy ID Covered alliance party ID Policy Garcia Coverage type [facility] MCR PFFS PRIM [employer] - MEDICARE SOLUTIONS ESS CARE IMPROVEMENT PLUS - [place] MED[place]ARE ADV[place] [employer] - MEDICARE SOLUTIONS ESS Le[employer] - MEDICARE SOLUTIONS ESS CARE IMPROVEMENT PLUS - [place] MED[place]ARE ADVANT[place] [employer] - MEDICARE SOLUTIONS ESS [employer] - MEDICARE SOLUTIONS ESS [employer] HEALTHCARE - MEDICARE SOLUTIONS ESS UNITED HEALTHCARE - MEDICARE SOLUTIONS ESS [employer] - MEDICARE SOLUTIONS ESS [employer] - MEDICARE SOLUTIONS ESS UNITED Decisionlink - MEDICARE SOLUTIONS ESS UNITED Decisionlink - MEDICARE SOLUTIONS ESS UNITED HEALTHCARE - MEDICARE SOLUTIONS ESS [employer] - MEDICARE SOLUTIONS ESS Le[employer] - MEDICARE SOLUTIONS [facility] LeanWagon - MEDICARE SOLUTIONS [facility] Encounters Encounter Performer Location Date Lab Report Juan Meyers MD [facility] [place] [facility] Jul Allergies, Adverse Reactions, Alerts Type [...] 2014Jul 30, sodium, serum SODIUM 142 mmol/L [phone] Jul 30, potassium, serum POTASSIUM 4.2 mmol/L 3.3-5.0 2014Jul 30, urea nitrogen, BUN 14 mg/dL 8-20 2015 blood Jul 30, creatinine, serum CREATININE 1.17 mg/dL 0.46-1.20 2014Jul 30, calcium, serum CALCIUM 9.5 mg/dL 8.8-10.0 2014Jul 30, international INR 0.99 null 0.8-1.5 2014 normalized ratio (INR) Jul 30, PTT patient PTT PATIENT 24.1 s 22.0-36.0 2014
--- OUTSIDE RECORDS SUMMARY | 2018-03-11 14:54 | XMS REPORT | Continuity of Care Document ---
:1945 Author Organization [facility] Care Team Providers Name Role Phone MD Luigi, Juan Unavailable Unavailable Insurance Providers Payer name Policy type / Policy ID Covered republican ID Policy Garcia Coverage type [facility] MCR PFFS PRIM [id number] - MEDICARE SOLUTIONS E[place] CARE IMPROVEMENT PL[place] MED[place]ARE ADV[place] e994 - MEDICARE [employer] ESS e994 - MEDICARE SOLUTIONS E[place] CARE IMPROVEMENT PL[place] MED[place]ARE ADVANTAG e994 - MEDICARE SOLUTIONS [facility] e994 - MEDICARE SOLUTIONS [facility] e994 - MEDICARE [employer] [facility] e994 - MEDICARE [employer] [facility] UNITED HEALTHCARE - MEDICARE SOLUTIONS [facility] UNITED HEALTHCARE - MEDICARE SOLUTIONS [facility] UNITED HEALTHCARE - MEDICARE SOLUTIONS [facility] Encounters Encounter Performer Location Date Office Visit Juan Meyers MD [facility] [place] [facility] Jun 25, 2014 Allergies, Adverse Reactions, [...]
--- OUTSIDE RECORDS SUMMARY | 2018-03-11 14:54 | XMS REPORT | Continuity of Care Document ---
:1945 Author Organization [facility] Care Team Providers Name Role Phone MD Luigi, Juan Unavailable Unavailable Insurance Providers Payer name Policy type / Policy ID Covered democrat ID Policy Garcia Coverage type [facility] MCR PFFS PRIM SocialVest - MEDICARE SOLUTIONS E[place] CARE IMPROVEMENT PL[place] MEDICARE ADVANTAG SocialVest - MEDICARE SOLUTIONS ESS SocialVest - MEDICARE SOLUTIONS E[place] CARE IMPROVEMENT PLUS [place] MEDICARE ADVANTAG SocialVest - MEDICARE SOLUTIONS ESS SocialVest - MEDICARE SOLUTIONS ESS SocialVest - MEDICARE SOLUTIONS ESS SocialVest - MEDICARE SOLUTIONS ESS SocialVest - MEDICARE SOLUTIONS ESS SocialVest - MEDICARE SOLUTIONS ESS SocialVest - MEDICARE SOLUTIONS ESS SocialVest - MEDICARE SOLUTIONS ESS SocialVest - MEDICARE SOLUTIONS ESS SocialVest - MEDICARE SOLUTIONS ESS SocialVest - MEDICARE SOLUTIONS ESS SocialVest - MEDICARE SOLUTIONS ESS SocialVest - MEDICARE SOLUTIONS [facility] Encounters Encounter Performer Location Date Lab Report Juan Meyers MD [facility] [place] [facility] Jul Allergies, Adverse Reactions, Alerts Type [...] 2014Jul 30, sodium, serum SODIUM 142 mmol/L [phone] Jul 30, potassium, serum POTASSIUM 4.2 mmol/L 3.3-5.0 2014Jul 30, urea nitrogen, BUN 14 mg/dL 8-20 2014 blood Jul 30, creatinine, serum CREATININE 1.17 mg/dL 0.46-1.20 2014Jul 30, calcium, serum CALCIUM 9.5 mg/dL 8.8-10.0 2014Jul 30, international INR 0.99 null 0.8-1.5 2014 normalized ratio (INR) Jul 30, PTT patient PTT PATIENT 24.1 s 22.0-36.0 2014
--- OUTSIDE RECORDS SUMMARY | 2018-03-11 14:54 | XMS REPORT | Continuity of Care Document ---
:1945 Author Organization [facility] Care Team Providers Name Role Phone MD Luigi, Juan Unavailable Unavailable Insurance Providers Payer name Policy type / Policy ID Covered green party ID Policy Garcia Coverage type [facility] MCR PFFS PRIM UNITED HEALTHCARE - [...] Location Date Office Visit Juan Meyers MD [facility] [place] [facility] Dec 14, 2014 Allergies, [...] 2014Jul 30, sodium, serum SODIUM 142 mmol/L [phone] Jul 30, potassium, serum POTASSIUM 4.2 mmol/L 3.3-5.0 2014Jul 30, urea nitrogen, BUN 14 mg/dL 8-2014Jul 30, creatinine, serum CREATININE 1.17 mg/dL 0.46-1.20 2014Jul 30, calcium, serum CALCIUM 9.5 mg/dL 8.8-10.0 2014November 02, sodium, serum SODIUM 138 mmol/L [phone] November 02, potassium, serum POTASSIUM 5.1 mmol/L [...]
--- OUTSIDE RECORDS SUMMARY | 2018-03-11 14:54 | XMS REPORT | Continuity of Care Document ---
:1945 Author Organization [facility] Care Team Providers Name Role Phone MD Luigi, Juan Unavailable Unavailable Insurance Providers Payer name Policy type / Policy ID Covered green party ID Policy Garcia Coverage type [facility] MCR PFFS PRIM TMS - MEDICARE SOLUTIONS E[place] CARE IMPROVEMENT PLUS [place] MEDICARE ADVANTAG TMS - MEDICARE SOLUTIONS ESS TMS - MEDICARE SOLUTIONS E[place] CARE IMPROVEMENT PLUS - [place] MEDICARE ADVANTAG TMS - MEDICARE SOLUTIONS ESS TMS - MEDICARE SOLUTIONS ESS TMS - MEDICARE SOLUTIONS ESS TMS - MEDICARE SOLUTIONS ESS TMS - MEDICARE SOLUTIONS ESS TMS - MEDICARE SOLUTIONS ESS TMS - MEDICARE SOLUTIONS ESS TMS - MEDICARE SOLUTIONS ESS TMS - MEDICARE SOLUTIONS ESS TMS - MEDICARE SOLUTIONS ESS TMS - MEDICARE SOLUTIONS ESS TMS - MEDICARE SOLUTIONS ESS TMS - MEDICARE SOLUTIONS [facility] Encounters Encounter Performer Location Date Lab Report Juan Meyers MD [facility] [place] [facility] Jul Allergies, Adverse Reactions, Alerts Type [...] 2014Jul 30, sodium, serum SODIUM 142 mmol/L [phone] Jul 30, potassium, serum POTASSIUM 4.2 mmol/L 3.3-5.0 2014Jul 30, urea nitrogen, BUN 14 mg/dL 8-20 2014 blood Jul 30, creatinine, serum CREATININE 1.17 mg/dL 0.46-1.20 2014Jul 30, calcium, serum CALCIUM 9.5 mg/dL 8.8-10.0 2014Jul 30, international INR 0.99 null 0.8-1.5 2014 normalized ratio (INR) Jul 30, PTT patient PTT PATIENT 24.1 s 22.0-36.0 2014
--- OUTSIDE RECORDS SUMMARY | 2018-03-11 14:54 | XMS REPORT | Continuity of Care Document ---
:1945 Author Organization [facility] Care Team Providers Name Role Phone MD Luigi, Juan Unavailable Unavailable Insurance Providers Payer name Policy type / Policy ID Covered republican ID Policy Garcia [facility] PRIM UNITED HEALTHCARE - MEDICARE [...] Location Date Office Visit Juan Meyers MD [facility] [place] [facility] Aug 31, 2014 Allergies, Adverse Reactions, [...] 2014Jul 30, sodium, serum SODIUM 142 mmol/L [phone] Jul 30, potassium, serum POTASSIUM 4.2 mmol/L 3.3-5.0 2014Jul 30, urea nitrogen, BUN 14 mg/dL 8-20 2015 blood Jul 30, creatinine, serum CREATININE 1.17 mg/dL 0.46-1.20 2014Jul 30, calcium, serum CALCIUM 9.5 mg/dL 8.8-10.0 2014Jul 30, international INR 0.99 null 0.8-1.5 2014 normalized ratio (INR) Jul 30, PTT patient PTT PATIENT 24.1 s 22.0-36.0 2014
--- OUTSIDE RECORDS SUMMARY | 2018-03-11 14:54 | XMS REPORT | Continuity of Care Document ---
:1945 Author Organization [facility] Care Team Providers Name Role Phone MD Luigi, Juan Unavailable Unavailable Insurance Providers Payer name Policy type / Policy ID Covered libertarian ID Policy Garcia Coverage type [facility] PFFS PRIM Drippler - MEDICARE SOLUTIONS ESS CARE IMPROVEMENT [place] MED[place]ARE ADVANTAG Drippler - MEDICARE [place] ESS Drippler - MEDICARE SOLUTIONS E[place] CARE IMPROVEMENT [place] MED[place]ARE ADVANTAG Drippler - MEDICARE SOLUTIONS [facility] Drippler - MEDICARE SOLUTIONS [facility] Drippler - MEDICARE SOLUTIONS [facility] Drippler - MEDICARE [place] [facility] Toovari - MEDICARE [place] [facility] HEALTH[facility]ARE - MEDICARE SOLUTIONS [facility] Encounters Encounter Performer Location Date Office Visit Juan Meyers MD [facility] [place] [facility] Jun 25, 2014 Allergies, Adverse Reactions, [...]
--- OUTSIDE RECORDS SUMMARY | 2018-03-11 14:55 | XMS REPORT | Continuity of Care Document ---
:1945 Author Organization [facility] Care Team Providers Name Role Phone MD Luigi, Juan Unavailable Unavailable Insurance Providers Payer name Policy type / Policy ID Covered republican ID Policy Garcia Coverage type [facility]ITALMa[facility] [employer] MCR PFFS PRIM UNITED HEALTHCARE - MEDICARE [...] Location Date Office Visit Juan Meyers MD [facility] [place] [facility] Oct 15, 2014 Allergies, Adverse Reactions, [...] 2014Jul 30, sodium, serum SODIUM 142 mmol/L [phone] Jul 30, potassium, serum POTASSIUM 4.2 mmol/L 3.3-5.0 2014Jul 30, urea nitrogen, BUN 14 mg/dL 8-20 2014 blood Jul 30, creatinine, serum CREATININE 1.17 mg/dL 0.46-1.20 2014Jul 30, calcium, serum CALCIUM 9.5 mg/dL 8.8-10.0 2014Jul 30, international INR 0.99 null 0.8-1.5 2014 normalized ratio (INR) Jul 30, PTT patient PTT PATIENT 24.1 s 22.0-36.0 2014
--- OUTSIDE RECORDS SUMMARY | 2018-03-11 14:55 | XMS REPORT | Continuity of Care Document ---
:1945 Author Organization [facility] Care Team Providers Name Role Phone MD Liugi, Juan Unavailable Unavailable Insurance Providers Payer name Policy type / Policy ID Covered constitution party ID Policy Garcia Coverage type AeroFarmsPROTEST[facility]OSPITALNight Up MCR PFFS PRIM UNITED HEALTHCARE - MEDICARE [...] Location Date Office Visit Juan Meyers MD [facility] [place] [facility] Sep 24, 2014 Allergies, Adverse Reactions, [...] 2014Jul 30, sodium, serum SODIUM 142 mmol/L [phone] Jul 30, potassium, serum POTASSIUM 4.2 mmol/L 3.3-5.0 2014Jul 30, urea nitrogen, BUN 14 mg/dL 8-20 2014 blood Jul 30, creatinine, serum CREATININE 1.17 mg/dL 0.46-1.20 2014Jul 30, calcium, serum CALCIUM 9.5 mg/dL 8.8-10.0 2014Jul 30, international INR 0.99 null 0.8-1.5 2014 normalized ratio (INR) Jul 30, PTT patient PTT PATIENT 24.1 s 22.0-36.0 2014
--- OUTSIDE RECORDS SUMMARY | 2018-03-11 14:55 | XMS REPORT | Continuity of Care Document ---
:1945 Author Organization [facility] Care Team Providers Name Role Phone MD Luigi, Juan Unavailable Unavailable Insurance Providers Payer name Policy type / Policy ID Covered green party ID Policy Garcia Coverage type [facility] S[facility]FluxDrive MCR PFFS PRIM UNITED HEALTHCARE - MEDICARE [...] Location Date Office Visit Juan Meyers MD [facility] [place] [facility] Aug 24, 2014 Allergies, Adverse Reactions, [...] 2014Jul 30, sodium, serum SODIUM 142 mmol/L [phone] Jul 30, potassium, serum POTASSIUM 4.2 mmol/L 3.3-5.0 2014Jul 30, urea nitrogen, BUN 14 mg/dL 8-20 2015 blood Jul 30, creatinine, serum CREATININE 1.17 mg/dL 0.46-1.20 2014Jul 30, calcium, serum CALCIUM 9.5 mg/dL 8.8-10.0 2014Jul 30, international INR 0.99 null 0.8-1.5 2014 normalized ratio (INR) Jul 30, PTT patient PTT PATIENT 24.1 s 22.0-36.0 2014
--- OUTSIDE RECORDS SUMMARY | 2018-03-11 14:55 | XMS REPORT | Continuity of Care Document ---
:1945 Author Organization [facility] Care Team Providers Name Role Phone MD Luigi, Juan Unavailable Unavailable Insurance Providers Payer name Policy type / Policy ID Covered libertarian ID Policy Garcia Coverage type [facility] MCR PFFS PRIM UNITED HEALTHCARE - MEDICARE [...] Location Date Office Visit Juan Meyers MD [facility] [place] [facility] November 16, 2014 Allergies, Adverse Reactions, [...] 2014Jul 30, sodium, serum SODIUM 142 mmol/L [phone] Jul 30, potassium, serum POTASSIUM 4.2 mmol/L 3.3-5.0 2014Jul 30, urea nitrogen, BUN 14 mg/dL 8-20 2014Jul 30, creatinine, serum CREATININE 1.17 mg/dL 0.46-1.20 2014Jul 30, calcium, serum CALCIUM 9.5 mg/dL 8.8-10.0 2014November 02, sodium, serum SODIUM 138 mmol/L [phone] November 02, potassium, serum POTASSIUM 5.1 mmol/L [...]
--- OUTSIDE RECORDS SUMMARY | 2018-03-11 14:55 | XMS REPORT | Continuity of Care Document ---
:1945 Author Organization [facility] Care Team Providers Name Role Phone MD Luigi, Juan Unavailable Unavailable Insurance Providers Payer name Policy type / Policy ID Covered democrat ID Policy Garcia Coverage type xTurionHARRISON COMMUNITY HOSPITALValyoo Technologies MCR PFFS PRIM UNITED HEALTHCARE - [...] Date Office Visit Juan Meyers MD [facility] [place] [facility] Aug 17, 2014 Allergies, Adverse Reactions, [...] 2014Jul 30, sodium, serum SODIUM 142 mmol/L [phone] Jul 30, potassium, serum POTASSIUM 4.2 mmol/L 3.3-5.0 2014Jul 30, urea nitrogen, BUN 14 mg/dL 8-20 2015 blood Jul 30, creatinine, serum CREATININE 1.17 mg/dL 0.46-1.20 2014Jul 30, calcium, serum CALCIUM 9.5 mg/dL 8.8-10.0 2014Jul 30, international INR 0.99 null 0.8-1.5 2014 normalized ratio (INR) Jul 30, PTT patient PTT PATIENT 24.1 s 22.0-36.0 2014
--- OUTSIDE RECORDS SUMMARY | 2018-03-11 14:55 | XMS REPORT | Continuity of Care Document ---
:1945 Author Organization [facility] Care Team Providers Name Role Phone MD Luigi, Juan Unavailable Unavailable Insurance Providers Payer name Policy type / Policy ID Covered alliance party ID Policy Garcia Coverage type Perfect AudienceMERCY HEALTH – THE JEWISH HOSPITALNuMedii MCR PFFS PRIM UNITED HEALTHCARE - MEDICARE [...] Location Date Lab Report Juan Meyers MD [facility] [place] [facility] October Allergies, Adverse Reactions, Alerts Type [...] 2014Jul 30, sodium, serum SODIUM 142 mmol/L [phone] Jul 30, potassium, serum POTASSIUM 4.2 mmol/L 3.3-5.0 2014Jul 30, urea nitrogen, BUN 14 mg/dL 8-2014Jul 30, creatinine, serum CREATININE 1.17 mg/dL 0.46-1.20 2014Jul 30, calcium, serum CALCIUM 9.5 mg/dL 8.8-10.0 2014November 02, sodium, serum SODIUM 138 mmol/L [phone] November 02, potassium, serum POTASSIUM 5.1 mmol/L [...]
--- OUTSIDE RECORDS SUMMARY | 2018-03-11 14:55 | XMS REPORT | Continuity of Care Document ---
:1945 Author Organization [facility] Care Team Providers Name Role Phone MD Luigi, Juan Unavailable Unavailable Insurance Providers Payer name Policy type / Policy ID Covered democrat ID Policy Garcia Coverage type SponsifyWVUMEDICINE HARRISON COMMUNITY HOSPITALNitric Bio MCR PFFS PRIM UNITED HEALTHCARE - MEDICARE SOLUTIONS ESS CARE IMPROVEMENT PLUS - [place] MEDICARE ADVANTAG Sponsify HEALTHCARE - MEDICARE SOLUTIONS ESSEN UNITED [employer] - MEDICARE SOLUTIONS ESSEN CARE IMPROVEMENT PLUS [...] Location Date Office Visit Juan Meyers MD [facility] [place] [facility] Aug 13, 2014 Allergies, Adverse Reactions, [...] 2014Jul 30, sodium, serum SODIUM 142 mmol/L [phone] Jul 30, potassium, serum POTASSIUM 4.2 mmol/L 3.3-5.0 2014Jul 30, urea nitrogen, BUN 14 mg/dL 8-20 2015 blood Jul 30, creatinine, serum CREATININE 1.17 mg/dL 0.46-1.20 2014Jul 30, calcium, serum CALCIUM 9.5 mg/dL 8.8-10.0 2014Jul 30, international INR 0.99 null 0.8-1.5 2014 normalized ratio (INR) Jul 30, PTT patient PTT PATIENT 24.1 s 22.0-36.0 2014
--- OUTSIDE RECORDS SUMMARY | 2018-03-11 14:56 | XMS REPORT | Continuity of Care Document ---
:1945 Author Organization [facility] Care Team Providers Name Role Phone MD Luigi, Juan Unavailable Unavailable Insurance Providers Payer name Policy type / Policy ID Covered republican ID Policy Garcia [facility]age type [facility] MCR PFFS PRIM UNITED HEALTHCARE [...] Location Date Office Visit Juan Meyers MD [facility] [place] [facility] Nov 30, 2014 Allergies, Adverse Reactions, [...] 2014Jul 30, sodium, serum SODIUM 142 mmol/L [phone] Jul 30, potassium, serum POTASSIUM 4.2 mmol/L 3.3-5.0 2014Jul 30, urea nitrogen, BUN 14 mg/dL 8-2014Jul 30, creatinine, serum CREATININE 1.17 mg/dL 0.46-1.20 2014Jul 30, calcium, serum CALCIUM 9.5 mg/dL 8.8-10.0 2014November 02, sodium, serum SODIUM 138 mmol/L [phone] November 02, potassium, serum POTASSIUM 5.1 mmol/L [...]
--- OUTSIDE RECORDS SUMMARY | 2018-03-11 14:56 | XMS REPORT | Continuity of Care Document ---
:1945 Author Organization [facility] Care Team Providers Name Role Phone MD Luigi, Juan Unavailable Unavailable Insurance Providers Payer name Policy type / Policy ID Covered alliance party ID Policy Garcia Coverage type [facility] MCR PFFS PRIM UNITED HEALTHCARE - [...] Location Date Office Visit Juan Meyers MD [facility] [place] [facility] November 16, 2014 Allergies, Adverse Reactions, [...] 2014Jul 30, sodium, serum SODIUM 142 mmol/L [phone] Jul 30, potassium, serum POTASSIUM 4.2 mmol/L 3.3-5.0 2014Jul 30, urea nitrogen, BUN 14 mg/dL 8-20 2014Jul 30, creatinine, serum CREATININE 1.17 mg/dL 0.46-1.20 2014Jul 30, calcium, serum CALCIUM 9.5 mg/dL 8.8-10.0 2014November 02, sodium, serum SODIUM 138 mmol/L [phone] November 02, potassium, serum POTASSIUM 5.1 mmol/L [...]
--- OUTSIDE RECORDS SUMMARY | 2018-03-11 14:56 | XMS REPORT | Continuity of Care Document ---
:[address] [facility] Care Team Providers Name Role Phone MD Luigi, Juan Unavailable Unavailable Insurance Providers Payer name Policy type / Policy ID Covered libertarian ID Policy Garcia Coverage type [facility] MCR PFFS PRIM UNITED HEALTHCARE - [...] Location Date Office Visit Juan Meyers MD [facility] [place] [facility] Nov 23, 2014 Allergies, Adverse Reactions, [...] 2014Jul 30, sodium, serum SODIUM 142 mmol/L [phone] Jul 30, potassium, serum POTASSIUM 4.2 mmol/L 3.3-5.0 2014Jul 30, urea nitrogen, BUN 14 mg/dL 8-20 2014Jul 30, creatinine, serum CREATININE 1.17 mg/dL 0.46-1.20 2014Jul 30, calcium, serum CALCIUM 9.5 mg/dL 8.8-10.0 2014November 02, sodium, serum SODIUM 138 mmol/L [phone] November 02, potassium, serum POTASSIUM 5.1 mmol/L [...]
[2018-03-11] MEDS: OXYCODONE HCL 5 MG TAB PO PRN ×2 (16:15→20:04)
[2018-03-11] MEDS ORDERED: DOCUSATE NA/SENNA CONC 1 TAB PO PRN (17:18)
[2018-03-11] MEDS: MAGNESIUM OXIDE 400 MG TAB PO SCH (20:03)
[2018-03-11] MEDS: ATORVASTATIN 10 MG TAB PO SCH (20:03)
[2018-03-11] MEDS: GABAPENTIN 300 MG CAP PO SCH (20:03)
[2018-03-11] MEDS: LORAZEPAM 0.5 MG TABLET PO SCH (20:04)
[2018-03-12] MEDS: OXYCODONE HCL 5 MG TAB PO PRN ×4 (00:53→20:00)
[2018-03-12 06:27] LABS: Absolute Lymphocytes (CBC) 1.6 K/uL (0.7-4.9); Absolute Monocytes 0.6 K/uL (0.1-1.3); Absolute Neutrophil 4.9 K/uL (1.8-8.0); Basophils % 0.8 % (0-1.3); Eosinophils % 5.7 % (0-4.4); Hematocrit 29.7 % (36.0-45.0); Lymphocytes % 21.6 % (15.3-44.8); MCV 83.4 fL (80-100); MPV 8.3 fL (7.6-11.3); Monocytes % 7.8 % (3.3-12.3); RBC Red Blood Cell Count 3.56 M/uL (3.86-4.86)
[2018-03-12 07:19] LABS: Albumin 2.3 g/dL (3.4-5.0); Magnesium 1.8 mg/dL (1.8-2.4); Potassium 3.4 mmol/L (3.5-5.1); Prealbumin 11.9 mg/dL (20-40)
[2018-03-12] MEDS: ALBUTEROL 2.5 MG/3 ML NEB SOL NEB PRN (07:55)
[2018-03-12] MEDS: HOME MED 1 EA UNK IH SCH ×2 (08:00)
[2018-03-12] MEDS: GABAPENTIN 300 MG CAP PO SCH ×2 (08:00→19:59)
[2018-03-12] MEDS: NAPROXEN 250 MG TAB PO SCH (08:02)
[2018-03-12] MEDS: AMLODIPINE 5 MG TAB PO SCH (08:02)
[2018-03-12] MEDS: FLUOXETINE 20 MG CAP PO SCH (08:02)
[2018-03-12] MEDS: MAGNESIUM OXIDE 400 MG TAB PO SCH ×2 (08:02→19:59)
[2018-03-12] MEDS: CYCLOBENZAPRINE 10 MG TAB PO SCH (08:02)
[2018-03-12] MEDS: LIDOCAINE 5% PATCH TOP SCH (08:02)
[2018-03-12] MEDS: CALCIUM CARBONATE CHEW 500MG TAB PO PRN (14:44)
[2018-03-12] MEDS: GUAIFENESIN/DM 5 ML UCUP PO PRN (14:44)
[2018-03-12] MEDS: ATORVASTATIN 10 MG TAB PO SCH (20:00)
[2018-03-12] MEDS: LORAZEPAM 0.5 MG TABLET PO SCH (20:00)
--- NOTE | 2018-03-12 23:26 | FAST ---
SHIFT START DATE/TIME: 03/12/2018 07:00 (CDT) SHIFT END DATE/TIME: 03/12/2018 19:00 (CDT) NAME [place]INCE [place] DATE OF : 1945 DATE OF ADMISSION: 03/11/2018 14:49 (CDT) PHONE: AGE: 73 SSN# [id number] GENDER: Female ENCOUNTER PHYSICIAN: Dr. Richi Fitzgerald M.D. ADMISSION DIAGNOSIS: - Orthopaedic Disorders 08 - Other Orthopaedic (08.9) right hip dislocation. EATING: EATING - STEP 1: Does the patient require assistance when eating? Yes. EATING - STEP 2: Does the patient require the assistance of a helper? Yes. EATING - STEP 3: Does the patient perform half or more of the eating tasks? Yes. EATING - STEP 4: Does the patient need only supervision, cuing, coaxing OR help to apply an orthosis OR help to cut fo od, open containers, pour liquids, or butter bread? Yes. EATING - SCORE: 5-SUP GROOMING: Activity did not occur on this shift GROOMING - SCORE: 0-UNK BATHING: Activity did not occur on this shift BATHING - SCORE: 0-UNK DRESSING - UPPER BODY: Activity did not occur on this shift ARTICLES SCORE Total number of steps: 0 DRESSING - UPPER BODY - SCORE: 0-UNK DRESSING - LOWER BODY: Activity did not occur on this shift ARTICLES SCORE Total number of steps: 0 DRESSING - LOWER BODY - SCORE: 0-UNK TOILETING: TOILETING - STEP 1: Does the patient require assistance with toileting? Yes. TOILETING - STEP 2: Does the patient require the assistance of a helper? Yes. TOILETING - STEP 3: How much assistance does the patient require from the helper? Hands-on assistance from the helper TOILETING - STEP 4: Of the 3 tasks: 1) Adjusting clothing prior to use, 2) Cleansing of perineal area, 3) Adjusting clot corrine after use; How many tasks does the patient perform WITHOUT assistance of the helper? Three tasks with steadying assistance from the helper TOILETING - SCORE: 4-MIN BLADDER MANAGEMENT: BLADDER MANAGEMENT - STEP 1: Does the patient control the bladder completely and intentionally without equipment or devices or med ications, and is always continent? No. BLADDER MANAGEMENT - STEP 2: Does the patient require the assistance of a helper? No, patient requires and independently uses an a ssistive device, such as a urinal, bedpan, bedside commode, catheter, absorbent pad, or collecting de vice BLADDER MANAGEMENT - SCORE: 6-JAYDE BOWEL MANAGEMENT: Activity did not occur on this shift BOWEL MANAGEMENT - SCORE: 7-IND TRANSFERS: BED, CHAIR, WHEELCHAIR: TRANSFERS: BED, CHAIR, WHEELCHAIR - STEP 1: Does the patient require assistance with bed, chair, or wheelchair transfers? Yes. TRANSFERS: BED, CHAIR, WHEELCHAIR - STEP 2: Does the patient require the assistance of a helper? Yes. TRANSFERS: BED, CHAIR, WHEELCHAIR - STEP 3: How much assistance does the patient require from the helper? Steadying/guiding assistance TRANSFERS: BED, CHAIR, WHEELCHAIR - SCORE: 4-MIN TRANSFERS: TOILET: TRANSFERS: TOILET - STEP 1: Does the patient require assistance with toilet transfers? Yes. TRANSFERS: TOILET - STEP 2: Does the patient require the assistance of a helper? Yes. TRANSFERS: TOILET - STEP 3: How much assistance does the patient require from the helper? Patient performs half or more of the tr ansferring tasks TRANSFERS: TOILET - STEP 4: Does the patient need only incidental help such as contact guard or steadying during toilet transfer? Yes. TRANSFERS: TOILET - SCORE: 4-MIN TRANSFERS: SHOWER: Activity did not occur on this shift TRANSFERS: SHOWER - SCORE: 0-UNK TRANSFERS: TUB: Activity did not occur on this shift TRANSFERS: TUB - SCORE: 0-UNK LOCOMOTION: WALK: Activity did not occur on this shift LOCOMOTION: WALK - SCORE: 0-UNK LOCOMOTION: WHEELCHAIR: Activity did not occur on this shift LOCOMOTION: WHEELCHAIR - SCORE: 0-UNK COMPREHENSION: COMPREHENSION: TYPE: Both COMPREHENSION - STEP 1: Does the patient require help to understand complex and abstract ideas (such as current events, finan renea, discharge planning, medical issues, relationships, etc)? No. COMPREHENSION - STEP 2: Does the patient need extra time, require an assistive device (such as glasses for visual comprehensi on or a hearing aid for auditory comprehension) or does s/he have mild difficulty understanding compl ex and abstract information? Yes. COMPREHENSION - SCORE: 6-JAYDE EXPRESSION EXPRESSION: TYPE: Both EXPRESSION - STEP 1: Does the patient require help expressing complex and abstract ideas (such as current events, finances , discharge planning, medical issues, relationships, etc)? No. EXPRESSION - STEP 2: Does the patient need extra time, require an assistive device (such as augmentive communication syste m or a communication board), OR does s/he have mild difficulty expressing complex and abstract ideas (including mild dysarthria or mild word-find problems)? Yes. EXPRESSION - SCORE: 6-JAYDE SOCIAL INTERACTION: SOCIAL INTERACTION - STEP 1: Does the patient require a helper to interact with others in social and therapeutic situations? No. SOCIAL INTERACTION - STEP 2: Does the patient need extra time in social situations, OR does s/he interact with staff, other patien ts, and family members ONLY in structured environments, OR does s/he require medication for social in teraction? Yes, patient needs extra time SOCIAL INTERACTION - SCORE: 6-JAYDE PROBLEM SOLVING: PROBLEM SOLVING - STEP 1: Does the patient need help to solve complex problems such as managing a checking account or confronti ng interpersonal problems? No. PROBLEM SOLVING - STEP 2: Does the patient require extra time to make decisions or solve problems, OR does s/he have slight dif ficulty reading, initiating, or self-correcting in unfamiliar situations? Yes, patient needs extra ti me. PROBLEM SOLVING - SCORE: 6-JAYDE MEMORY: MEMORY - STEP 1: Does the patient need help to remember frequently encountered people, daily routines, and executing r equests? No. MEMORY - STEP 2: Does the patient have slight difficulty recognizing frequently encountered people, daily routines, or executing requests without the need for repetition or using self-initiated or environmental cues to remember? Yes. MEMORY - SCORE: 6-JAYDE SIGNATURE PANEL: The following modified sections: Eating - Score, Grooming - Score, Bathing - Score, Dressing - Upper Body - Score, Dressing - Lower Body - Score, Toileting - Score, Bladder Management - Score, Bowel Man agement - Score, Transfers: Bed, Chair, Wheelchair - Score, Transfers: Toilet - Score, Transfers: Pepper wer - Score, Transfers: Tub - Score, Locomotion: Walk - Score, Locomotion: Wheelchair - Score, Compre hension - Score, Expression - Score, Social Interaction - Score, Problem Solving - Score, Memory - Sc ore were [electronically] signed by Luis Banks on Sat Mar 12 2018 10:28:21 GMT-0500 (Central Daylight Time)
--- NOTE | 2018-03-12 23:27 | FAST ---
ENCOUNTER DATE AND TIME: 03/12/2018 08:00 (CDT) NAME VINCE [place] DATE OF : 1945 DATE OF ADMISSION: 03/11/2018 14:49 (CDT) PHONE: AGE: 73 SSN# [id number] GENDER: Female ENCOUNTER PHYSICIAN: Dr. Richi Fitzgerald M.D. ADMISSION DIAGNOSIS: - Orthopaedic Disorders 08 - Other Orthopaedic (08.9) right hip dislocation. EATING: Activity did not occur on this shift EATING - SCORE: 0-UNK GROOMING: Comb/brush hair Wash, rinse, and dry face Wash, rinse, and dry hands GROOMING - STEP 1: Does the patient require assistance when grooming? No. GROOMING - SCORE: 7-IND BATHING: Abdomen Buttocks Chest Left arm Left lower leg and foot Left upper leg Perineal area Right arm Right lower leg and foot Right upper leg BATHING - STEP 1: Does the patient require assistance when bathing? Yes. BATHING - STEP 2: Does the patient require the assistance of a helper? Yes. BATHING - STEP 3: How much assistance does the patient require from the helper? More than just incidental help BATHING - STEP 4: What percent of the body parts did the patient bathe WITHOUT the helper? Half or more of the body par ts BATHING - SCORE: 3-MOD DRESSING - UPPER BODY: Patient is not dressing in public clothing ARTICLES SCORE Total number of steps: 0 DRESSING - UPPER BODY - SCORE: 0-UNK DRESSING - LOWER BODY: Patient is not dressing in public clothing ARTICLES SCORE Total number of steps: 0 DRESSING - LOWER BODY - SCORE: 0-UNK TOILETING: TOILETING - STEP 1: Does the patient require assistance with toileting? Yes. TOILETING - STEP 2: Does the patient require the assistance of a helper? Yes. TOILETING - STEP 3: How much assistance does the patient require from the helper? Hands-on assistance from the helper TOILETING - STEP 4: Of the 3 tasks: 1) Adjusting clothing prior to use, 2) Cleansing of perineal area, 3) Adjusting clot corrine after use; How many tasks does the patient perform WITHOUT assistance of the helper? One task TOILETING - SCORE: 2-MAX BLADDER MANAGEMENT: Activity did not occur on this shift BLADDER MANAGEMENT - SCORE: 7-IND BOWEL MANAGEMENT: Activity did not occur on this shift BOWEL MANAGEMENT - SCORE: 7-IND TRANSFERS: BED, CHAIR, WHEELCHAIR: Activity did not occur on this shift TRANSFERS: BED, CHAIR, WHEELCHAIR - SCORE: 0-UNK TRANSFERS: TOILET: TRANSFERS: TOILET - STEP 1: Does the patient require assistance with toilet transfers? Yes. TRANSFERS: TOILET - STEP 2: Does the patient require the assistance of a helper? Yes. TRANSFERS: TOILET - STEP 3: How much assistance does the patient require from the helper? Patient performs half or more of the tr ansferring tasks TRANSFERS: TOILET - STEP 4: Does the patient need only incidental help such as contact guard or steadying during toilet transfer? Yes. TRANSFERS: TOILET - SCORE: 4-MIN TRANSFERS: SHOWER: TRANSFERS: SHOWER - STEP 1: Does the patient require assistance with shower transfers? Yes. TRANSFERS: SHOWER - STEP 2: Does the patient require the assistance of a helper? Yes. TRANSFERS: SHOWER - STEP 3: How much assistance does the patient require from the helper? Only incidental help such as contact gu arding or steadying during shower transfers, or help to lift one leg into the shower TRANSFERS: SHOWER - SCORE: 4-MIN TRANSFERS: TUB: Activity did not occur on this shift TRANSFERS: TUB - SCORE: 0-UNK LOCOMOTION: WALK: Activity did not occur on this shift LOCOMOTION: WALK - SCORE: 0-UNK LOCOMOTION: WHEELCHAIR: Activity did not occur on this shift LOCOMOTION: WHEELCHAIR - SCORE: 0-UNK LOCOMOTION: STAIRS: Activity did not occur on this shift LOCOMOTION: STAIRS - SCORE: 0-UNK COMPREHENSION: COMPREHENSION: TYPE: Both COMPREHENSION - STEP 1: Does the patient require help to understand complex and abstract ideas (such as current events, finan renea, discharge planning, medical issues, relationships, etc)? Yes. COMPREHENSION - STEP 2: Does the patient require help to understand questions or statements about basic needs or ideas (such as hunger, thirst, sleep, safety, daily schedule, room location, or discomfort) half or more of the t joon? No. COMPREHENSION - STEP 3: How often does the patient need help to understand directions and conversation about basic needs? Les s than 10% of the time COMPREHENSION - SCORE: 5-SUP EXPRESSION EXPRESSION: TYPE: Vocal EXPRESSION - STEP 1: Does the patient require help expressing complex and abstract ideas (such as current events, finances , discharge planning, medical issues, relationships, etc)? No. EXPRESSION - STEP 2: Does the patient need extra time, require an assistive device (such as augmentive communication syste m or a communication board), OR does s/he have mild difficulty expressing complex and abstract ideas (including mild dysarthria or mild word-find problems)? Yes. EXPRESSION - SCORE: 6-JAYDE SOCIAL INTERACTION: SOCIAL INTERACTION - STEP 1: Does the patient require a helper to interact with others in social and therapeutic situations? No. SOCIAL INTERACTION - STEP 2: Does the patient need extra time in social situations, OR does s/he interact with staff, other patien ts, and family members ONLY in structured environments, OR does s/he require medication for social in teraction? No. SOCIAL INTERACTION - SCORE: 7-IND PROBLEM SOLVING: PROBLEM SOLVING - STEP 1: Does the patient need help to solve complex problems such as managing a checking account or confronti ng interpersonal problems? Yes. PROBLEM SOLVING - STEP 2: Does the patient solve basic routine problems half or more of the time? Yes. PROBLEM SOLVING - STEP 3: How often does the patient need help to solve basic routine problems? Less than 10% of the time PROBLEM SOLVING - SCORE: 5-SUP MEMORY: MEMORY - STEP 1: Does the patient need help to remember frequently encountered people, daily routines, and executing r equests? Yes. MEMORY - STEP 2: How often does the patient need help to remember frequently encountered people, daily routines, and e xecuting requests? 10% - 24% of the time MEMORY - SCORE: 4-MIN SIGNATURE PANEL: The following modified sections: Eating - Score, Grooming - Score, Bathing - Score, Dressing - Upper Body - Score, Dressing - Lower Body - Score, Toileting - Score, Transfers: Bed, Chair, Wheelchair - S core, Transfers: Toilet - Score, Transfers: Shower - Score, Transfers: Tub - Score, Comprehension - S core, Expression - Score, Social Interaction - Score, Problem Solving - Score, Memory - Score were [e lectronically] signed by Jillian Umana OT on Sat Mar 12 2018 16:32:57 GMT-0500 ([facility])
--- NOTE | 2018-03-13 02:18 | FAST ---
SHIFT START DATE/TIME: 03/12/2018 19:00 (CDT) SHIFT END DATE/TIME: 03/13/2018 07:00 (CDT) NAME VINCE [place] DATE OF : 1945 DATE OF ADMISSION: 03/11/2018 14:49 (CDT) PHONE: AGE: 73 SSN# [id number] GENDER: Female ENCOUNTER PHYSICIAN: Dr. Richi Fitzgerald M.D. ADMISSION DIAGNOSIS: - Orthopaedic Disorders 08 - Other Orthopaedic (08.9) right hip dislocation. EATING: Activity did not occur on this shift EATING - SCORE: 0-UNK GROOMING: Activity did not occur on this shift GROOMING - SCORE: 0-UNK BATHING: Activity did not occur on this shift BATHING - SCORE: 0-UNK DRESSING - UPPER BODY: Activity did not occur on this shift ARTICLES SCORE Total number of steps: 0 DRESSING - UPPER BODY - SCORE: 0-UNK DRESSING - LOWER BODY: Activity did not occur on this shift ARTICLES SCORE Total number of steps: 0 DRESSING - LOWER BODY - SCORE: 0-UNK TOILETING: TOILETING - STEP 1: Does the patient require assistance with toileting? Yes. TOILETING - STEP 2: Does the patient require the assistance of a helper? Yes. TOILETING - STEP 3: How much assistance does the patient require from the helper? Hands-on assistance from the helper TOILETING - STEP 4: Of the 3 tasks: 1) Adjusting clothing prior to use, 2) Cleansing of perineal area, 3) Adjusting clot corrine after use; How many tasks does the patient perform WITHOUT assistance of the helper? Three tasks with steadying assistance from the helper TOILETING - SCORE: 4-MIN BLADDER MANAGEMENT: BLADDER MANAGEMENT - STEP 1: Does the patient control the bladder completely and intentionally without equipment or devices or med ications, and is always continent? No. BLADDER MANAGEMENT - STEP 2: Does the patient require the assistance of a helper? Yes. BLADDER MANAGEMENT - STEP 3: How much assistance does the patient require from the helper? Patient requires contact assistance fro m the helper BLADDER MANAGEMENT - STEP 4: How much contact assistance does the patient require from the helper? Patient requires minimal assist ance to maintain an external device - by positioning, and the patient performs 75% or more of bladder management tasks, while the helper provides less than 25% of the assistance to position patient on / off bedpan BLADDER MANAGEMENT - SCORE: 4-MIN BOWEL MANAGEMENT: BOWEL MANAGEMENT - STEP 1: Does the patient control bowels completely and intentionally without equipment devices or medications AND is always continent? No. BOWEL MANAGEMENT - STEP 2: Does the patient require the assistance of a helper? Yes. BOWEL MANAGEMENT - STEP 3: How much assistance does the patient require from the helper? Patient requires minimal contact assist ance / incidental help to maintain an external device such as removing / applying wafer BOWEL MANAGEMENT - SCORE: 4-MIN TRANSFERS: BED, CHAIR, WHEELCHAIR: TRANSFERS: BED, CHAIR, WHEELCHAIR - STEP 1: Does the patient require assistance with bed, chair, or wheelchair transfers? Yes. TRANSFERS: BED, CHAIR, WHEELCHAIR - STEP 2: Does the patient require the assistance of a helper? Yes. TRANSFERS: BED, CHAIR, WHEELCHAIR - STEP 3: How much assistance does the patient require from the helper? Steadying/guiding assistance TRANSFERS: BED, CHAIR, WHEELCHAIR - SCORE: 4-MIN TRANSFERS: TOILET: TRANSFERS: TOILET - STEP 1: Does the patient require assistance with toilet transfers? Yes. TRANSFERS: TOILET - STEP 2: Does the patient require the assistance of a helper? Yes. TRANSFERS: TOILET - STEP 3: How much assistance does the patient require from the helper? Patient performs half or more of the tr ansferring tasks TRANSFERS: TOILET - STEP 4: Does the patient need only incidental help such as contact guard or steadying during toilet transfer? Yes. TRANSFERS: TOILET - SCORE: 4-MIN TRANSFERS: SHOWER: Activity did not occur on this shift TRANSFERS: SHOWER - SCORE: 0-UNK TRANSFERS: TUB: Activity did not occur on this shift TRANSFERS: TUB - SCORE: 0-UNK LOCOMOTION: WALK: Activity did not occur on this shift LOCOMOTION: WALK - SCORE: 0-UNK LOCOMOTION: WHEELCHAIR: Activity did not occur on this shift LOCOMOTION: WHEELCHAIR - SCORE: 0-UNK COMPREHENSION: COMPREHENSION: TYPE: Both COMPREHENSION - STEP 1: Does the patient require help to understand complex and abstract ideas (such as current events, finan renea, discharge planning, medical issues, relationships, etc)? No. COMPREHENSION - STEP 2: Does the patient need extra time, require an assistive device (such as glasses for visual comprehensi on or a hearing aid for auditory comprehension) or does s/he have mild difficulty understanding compl ex and abstract information? Yes. COMPREHENSION - SCORE: 6-JAYDE EXPRESSION EXPRESSION: TYPE: Both EXPRESSION - STEP 1: Does the patient require help expressing complex and abstract ideas (such as current events, finances , discharge planning, medical issues, relationships, etc)? No. EXPRESSION - STEP 2: Does the patient need extra time, require an assistive device (such as augmentive communication syste m or a communication board), OR does s/he have mild difficulty expressing complex and abstract ideas (including mild dysarthria or mild word-find problems)? Yes. EXPRESSION - SCORE: 6-JAYED SOCIAL INTERACTION: SOCIAL INTERACTION - STEP 1: Does the patient require a helper to interact with others in social and therapeutic situations? No. SOCIAL INTERACTION - STEP 2: Does the patient need extra time in social situations, OR does s/he interact with staff, other patien ts, and family members ONLY in structured environments, OR does s/he require medication for social in teraction? Yes, patient needs extra time SOCIAL INTERACTION - SCORE: 6-JAYDE PROBLEM SOLVING: PROBLEM SOLVING - STEP 1: Does the patient need help to solve complex problems such as managing a checking account or confronti ng interpersonal problems? No. PROBLEM SOLVING - STEP 2: Does the patient require extra time to make decisions or solve problems, OR does s/he have slight dif ficulty reading, initiating, or self-correcting in unfamiliar situations? Yes, patient needs extra ti me. PROBLEM SOLVING - SCORE: 6-JAYDE MEMORY: MEMORY - STEP 1: Does the patient need help to remember frequently encountered people, daily routines, and executing r equests? No. MEMORY - STEP 2: Does the patient have slight difficulty recognizing frequently encountered people, daily routines, or executing requests without the need for repetition or using self-initiated or environmental cues to remember? No. MEMORY - SCORE: 7-IND SIGNATURE PANEL: The following modified sections: Eating - Score, Grooming - Score, Bathing - Score, Dressing - Upper Body - Score, Dressing - Lower Body - Score, Toileting - Score, Bladder Management - Score, Bowel Man agement - Score, Transfers: Bed, Chair, Wheelchair - Score, Transfers: Toilet - Score, Transfers: Pepper wer - Score, Transfers: Tub - Score, Locomotion: Walk - Score, Locomotion: Wheelchair - Score, Compre hension - Score, Expression - Score, Social Interaction - Score, Problem Solving - Score, Memory - Sc ore were [electronically] signed by Jaquelin Dickens RN on WedMar 13 2018 02:17:08 T-0500 ([facility] Time)
[2018-03-13] MEDS: HOME MED 1 EA UNK IH SCH ×2 (08:00)
[2018-03-13] MEDS: MAGNESIUM OXIDE 400 MG TAB PO SCH ×2 (08:16→19:08)
[2018-03-13] MEDS: CYCLOBENZAPRINE 10 MG TAB PO SCH (08:16)
[2018-03-13] MEDS: GABAPENTIN 300 MG CAP PO SCH ×2 (08:16→19:08)
[2018-03-13] MEDS: LIDOCAINE 5% PATCH TOP SCH (08:16)
[2018-03-13] MEDS: FLUOXETINE 20 MG CAP PO SCH (08:16)
[2018-03-13] MEDS: AMLODIPINE 5 MG TAB PO SCH (08:16)
[2018-03-13] MEDS: NAPROXEN 250 MG TAB PO SCH (08:17)
[2018-03-13 08:31] LABS: Urine Appearance CLOUDY; Urine Bilirubin NEGATIVE (NEG); Urine Blood 1+ (NEG); Urine Color YELLOW; Urine Glucose NEGATIVE (NEG); Urine Protein NEGATIVE (NEG); Urine Specific Gravity 1.015 (1.005-1.030)
[2018-03-13 08:50] LABS: Urine Bacteria 20-50 /HPF (<20); Urine Culture Reflex Order NOT NEEDED
--- NOTE | 2018-03-13 10:20 | FAST ---
SHIFT START DATE/TIME: 03/13/2018 07:00 (CDT) SHIFT END DATE/TIME: 03/13/2018 19:00 (CDT) NAME VINCE [place] DATE OF : 1945 DATE OF ADMISSION: 03/11/2018 14:49 (CDT) PHONE: AGE: 73 SSN# [id number] GENDER: Female ENCOUNTER PHYSICIAN: Dr. Richi Fitzgerald M.D. ADMISSION DIAGNOSIS: - Orthopaedic Disorders 08 - Other Orthopaedic (08.9) right hip dislocation. EATING: EATING - STEP 1: Does the patient require assistance when eating? Yes. EATING - STEP 2: Does the patient require the assistance of a helper? No, patient only requires an assistive device, O R s/he takes more than reasonable time to eat, OR there is a safety concern, OR s/he requires modifie d food consistency EATING - SCORE: 6-JAYDE GROOMING: Activity did not occur on this shift GROOMING - SCORE: 0-UNK BATHING: Activity did not occur on this shift BATHING - SCORE: 0-UNK DRESSING - UPPER BODY: Patient is not dressing in public clothing ARTICLES SCORE Total number of steps: 0 DRESSING - UPPER BODY - SCORE: 0-UNK DRESSING - LOWER BODY: Patient is not dressing in public clothing ARTICLES SCORE Total number of steps: 0 DRESSING - LOWER BODY - SCORE: 0-UNK TOILETING: TOILETING - STEP 1: Does the patient require assistance with toileting? Yes. TOILETING - STEP 2: Does the patient require the assistance of a helper? Yes. TOILETING - STEP 3: How much assistance does the patient require from the helper? Hands-on assistance from the helper TOILETING - STEP 4: Of the 3 tasks: 1) Adjusting clothing prior to use, 2) Cleansing of perineal area, 3) Adjusting clot corrine after use; How many tasks does the patient perform WITHOUT assistance of the helper? Three tasks with steadying assistance from the helper TOILETING - SCORE: 4-MIN BLADDER MANAGEMENT: BLADDER MANAGEMENT - STEP 1: Does the patient control the bladder completely and intentionally without equipment or devices or med ications, and is always continent? No. BLADDER MANAGEMENT - STEP 2: Does the patient require the assistance of a helper? No, patient requires and independently uses an a ssistive device, such as a urinal, bedpan, bedside commode, catheter, absorbent pad, or collecting de vice BLADDER MANAGEMENT - SCORE: 6-JAYDE BOWEL MANAGEMENT: Activity did not occur on this shift BOWEL MANAGEMENT - SCORE: 7-IND TRANSFERS: BED, CHAIR, WHEELCHAIR: TRANSFERS: BED, CHAIR, WHEELCHAIR - STEP 1: Does the patient require assistance with bed, chair, or wheelchair transfers? Yes. TRANSFERS: BED, CHAIR, WHEELCHAIR - STEP 2: Does the patient require the assistance of a helper? Yes. TRANSFERS: BED, CHAIR, WHEELCHAIR - STEP 3: How much assistance does the patient require from the helper? Steadying/guiding assistance TRANSFERS: BED, CHAIR, WHEELCHAIR - SCORE: 4-MIN TRANSFERS: TOILET: TRANSFERS: TOILET - STEP 1: Does the patient require assistance with toilet transfers? Yes. TRANSFERS: TOILET - STEP 2: Does the patient require the assistance of a helper? Yes. TRANSFERS: TOILET - STEP 3: How much assistance does the patient require from the helper? Patient performs half or more of the tr ansferring tasks TRANSFERS: TOILET - STEP 4: Does the patient need only incidental help such as contact guard or steadying during toilet transfer? Yes. TRANSFERS: TOILET - SCORE: 4-MIN TRANSFERS: SHOWER: Activity did not occur on this shift TRANSFERS: SHOWER - SCORE: 0-UNK TRANSFERS: TUB: Activity did not occur on this shift TRANSFERS: TUB - SCORE: 0-UNK LOCOMOTION: WALK: Activity did not occur on this shift LOCOMOTION: WALK - SCORE: 0-UNK LOCOMOTION: WHEELCHAIR: Activity did not occur on this shift LOCOMOTION: WHEELCHAIR - SCORE: 0-UNK COMPREHENSION: COMPREHENSION: TYPE: Both COMPREHENSION - STEP 1: Does the patient require help to understand complex and abstract ideas (such as current events, finan renea, discharge planning, medical issues, relationships, etc)? No. COMPREHENSION - STEP 2: Does the patient need extra time, require an assistive device (such as glasses for visual comprehensi on or a hearing aid for auditory comprehension) or does s/he have mild difficulty understanding compl ex and abstract information? Yes. COMPREHENSION - SCORE: 6-JAYDE EXPRESSION EXPRESSION: TYPE: Both EXPRESSION - STEP 1: Does the patient require help expressing complex and abstract ideas (such as current events, finances , discharge planning, medical issues, relationships, etc)? No. EXPRESSION - STEP 2: Does the patient need extra time, require an assistive device (such as augmentive communication syste m or a communication board), OR does s/he have mild difficulty expressing complex and abstract ideas (including mild dysarthria or mild word-find problems)? Yes. EXPRESSION - SCORE: 6-JAYDE SOCIAL INTERACTION: SOCIAL INTERACTION - STEP 1: Does the patient require a helper to interact with others in social and therapeutic situations? No. SOCIAL INTERACTION - STEP 2: Does the patient need extra time in social situations, OR does s/he interact with staff, other patien ts, and family members ONLY in structured environments, OR does s/he require medication for social in teraction? Yes, patient needs extra time SOCIAL INTERACTION - SCORE: 6-JAYDE PROBLEM SOLVING: PROBLEM SOLVING - STEP 1: Does the patient need help to solve complex problems such as managing a checking account or confronti ng interpersonal problems? No. PROBLEM SOLVING - STEP 2: Does the patient require extra time to make decisions or solve problems, OR does s/he have slight dif ficulty reading, initiating, or self-correcting in unfamiliar situations? Yes, patient needs extra ti me. PROBLEM SOLVING - SCORE: 6-JAYDE MEMORY: MEMORY - STEP 1: Does the patient need help to remember frequently encountered people, daily routines, and executing r equests? No. MEMORY - STEP 2: Does the patient have slight difficulty recognizing frequently encountered people, daily routines, or executing requests without the need for repetition or using self-initiated or environmental cues to remember? Yes. MEMORY - SCORE: 6-JAYDE SIGNATURE PANEL: The following modified sections: Eating - Score, Grooming - Score, Bathing - Score, Dressing - Upper Body - Score, Dressing - Lower Body - Score, Toileting - Score, Bladder Management - Score, Bowel Man agement - Score, Transfers: Bed, Chair, Wheelchair - Score, Transfers: Toilet - Score, Transfers: Pepper wer - Score, Transfers: Tub - Score, Locomotion: Walk - Score, Locomotion: Wheelchair - Score, Compre hension - Score, Expression - Score, Social Interaction - Score, Problem Solving - Score, Memory - Sc ore were [electronically] signed by Luis Banks on WedMar 13 2018 10:19:01 GMT-0500 ([facility] Day[place] Time)
--- NOTE | 2018-03-13 12:21 | R.HP ---
FACILITY: [facility] ENCOUNTER DATE AND TIME: 03/13/2018 12:15 (CDT) MR#: [id number] NAME VINCE [place] ADDRESS: [place] [address] CITY: [place]IP [address] PHONE: DATE OF : 1945 AGE: 73 SSN# [id number] GENDER: Female DEXTERITY Right-handed MARITAL STATUS Unknown RACE White PRE-HOSPITAL LIVING SETTING 01 - Home (private home/apt. board/care, assisted living, detention, transitional living) PRE-HOSPITAL LIVING WITH Family/Relatives ENCOUNTER PHYSICIAN: Dr. Richi Fitzgerald M.D. REFERRING DOCTOR: leonard Leong DATE OF ADMISSION: 03/11/2018 14:49 (CDT) REFERRING FACILITY [facility] HOME TYPE AND DETAILS: Type of home: mobile home # of steps to enter the residence: 0 # of steps within the residence: 0 # of levels in the residence: 1 ADMISSION DIAGNOSIS: right hip dislocation ONSET DATE: 03/04/2018 PRIMARY DIAGNOSIS-RELATED SURGERIES: No surgeries related to the primary diagnosis were performed. 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 is a 73 yo Right-handed white female. On 03/04/2018 she was admitted to [facility] with diagnosis right hip dislocati on. Her impairment category is Orthopaedic Disorders 08 - Other Orthopaedic (08.9). Pre-morbidly, Pt. was independent/mod-I in Self-Care, Sphincter Control, Transfers Control, Communica tion, Social Cognition, and Locomotion; and she had good Sphincter Control. Currently, she has deficits of Balance, Endurance, Safety Awareness, Transfers Control, Locomotion, a nd Self-Care. Pt. is now referred to [facility] for acute in-patient rehabilitation in order to maximize patient's functional independence in activities of daily living, strength, ROM, and mobi lity. Patient has realistic goal of being discharged at assistance level 6-Michael to reside at Home with Fam larry/Relatives. 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 SOCIAL HISTORY: - Home Living Family/Relatives REVIEW OF SYSTEMS: - Gen No Chills Fatigue No Fever - Eyes No Double Vision No itchiness - ENMT No Difficulty Swallowing - CVS No Chest Discomfort No Chest Pain Fatigue No Weight Gain - Resp No Cough No Shortness of Breath - GI Continent No Abdominal Pain No Constipation No Diarrhea - Continent No Kidney Pain No Painful Urination No Urinary Urgency - MSK No Joint Pain Muscle Cramps Stiffness - Skin No Itching No Rash No Suspicious Lesions - Neuro No Coordination Difficulty No Difficulty with Concentration No Memory Loss No Seizures No Weakness - Psych No Anxiety No Depression No HIV Exposure No Persistent Infections No Seasonal Allergies - Endo No Cold/Heat Intolerance No Excessive Hunger No Excessive Thirst No Excessive Urination PHYSICAL EXAM - Gen Alert and awake Lying in bed No apparent distress Oriented to: person, time, and place - Skin No skin breakdown. Normacephalic - Eyes No abnormalities - ENMT No abnormalities - Neck No abnormalities - CVS RRR - Chest Clear - Abd Soft - GI Non distended No abnormalities - No abnormalities - Ext Mild bilateral lower extremity edema. - MSK Unremarkable - Neuro 4/5 strength bilaterally lower extremities. - Psych No abnormalities VITAL SIGNS Temperature: 97.4 F SBP/DBP: 126/59 Pulse: 73 Resp: 18 NURSING: - Shower allowing shower - Skin care per protocol PRECAUTIONS: - Weight Bearing Precaution WBAT right LE ACTIVITIES OOB only with supervision FUNCTIONAL STATUS: - Self-Care A. Eating Ind Ind B. Grooming Ind sup C. Bathing Ind Yumiko D. Dressing - Upper Ind sup E. Dressing - Lower Ind modA F. Toileting Ind modA - Sphincter Control G: Bladder control Ind Ind H: Bowel control Ind Ind - Transfers Control I. Bed/Chair/Wheelchair Ind Yumiko J. Toilet Ind Yumiko K. Tub/Shower Ind Yumiko - Locomotion L. Walk/Wheelchair (B) Michael modA M. Stairs Ind ADNO - Communication N. Comprehension (B) Ind Michael O. Expression (B) Ind Michael - Social Cognition P. Social Interaction Ind Michael Q. Problem Solving Ind Michael R. Memory Ind Michael - Endurance Fair - Balance Fair - Safety Awareness Poor CURRENT [facility]. DEFICITS: Balance, Endurance, Safety Awareness, Transfers Control, Locomotion, and Self-Care ASSESSMENT: Pt. is a 73 yo Right-handed white female.On 03/04/2018 she was admitted to [facility] with diagnosis right hip dislocation.Her impairment category is Orthopaedic Disorders 08 - Ot her Orthopaedic (08.9).Pre-morbidly, Pt. was independent/mod-I in Self-Care, Sphincter Control, Trans fers Control, Communication, Social Cognition, and Locomotion; and she had good Sphincter Control.Cur rently, she has deficits of Balance, Endurance, Safety Awareness, Transfers Control, Locomotion, and Self-Care.Pt. is now referred to [facility] for acute in-patient rehabilitatio n in order to maximize patient's functional independence in activities of daily living, strength, ROM , and mobility.- Rehab Goal Patient has realistic goal of being discharged at assistance level 6-Michael to reside at Home with Fam larry/Relatives. REHAB PLAN: - Physical Therapy Decreased range of motion - to improve, our physical therapists will perform initial evaluation of pt 's status upon admission and devise an individualized program for increasing patient's Range of Motio n. Gait dysfunction - to improve, our physical therapists will perform initial evaluation of pt's status upon admission and devise an individualized program for Gait Training, and Wheel Chair mobility Inability to transfer - to improve, our physical therapists will perform initial evaluation of pt's s tatus upon admission and devise an individualized program for Bed mobility Need for home safety evaluation - to improve, our physical therapists will perform initial evaluation of pt's status upon admission and devise an individualized program for Home Evaluation Need in caregiver upon discharge - to improve, our physical therapists will perform initial evaluatio n of pt's status upon admission and devise an individualized program for Caregiver Training New precaution - to improve, our physical therapists will perform initial evaluation of pt's status u alf admission and devise an individualized program for Patient precaution education Edema - to improve, our physical therapists will perform initial evaluation of pt's status upon admi ssion and devise an individualized program for Elevation Training, and Lymphedema Therapy Poor balance - to improve, our physical therapists will perform initial evaluation of pt's status upo n admission and devise an individualized program for Balance Training Poor endurance - to improve, our physical therapists will perform initial evaluation of pt's status u alf admission and devise an individualized program for Endurance Training Weakness - to improve, our physical therapists will perform initial evaluation of pt's status upon ad mission and devise an individualized program for Aquatic Therapy, Neuromuscular Reeducation, and Stre ngthening Achieving independence - to improve, our physical therapists will perform initial evaluation of pt's status upon admission and devise an individualized program for Community Reintegration Activities - Occupational Therapy ADL deficits - to improve, our occupation therapists will perform initial evaluation of pt's status u alf admission and devise an individualized program for Bathing, Bed mobility, Community Reintegration , Cooking, Dressing, Eating, Fine Motor Skills, Grooming, Homemaking, Kitchen Mobility, Laundry, Lena ent Education, Safety Awareness, Splinting - Positioning, Transfers(Toilet, Tub, Shower), and Wheel C hair Management Need for care manager - to improve, our occupation therapists will perform initial evaluation of pt's s tatus upon admission and devise an individualized program for Caregiver Training Weakness - to improve, our occupation therapists will perform initial evaluation of pt's status upon admission and devise an individualized program for Aquatic Therapy, Balance, Endurance, UE ROM, and U E strengthening MEDICAL PLAN: - Diet Type Start Regular - Diet - Liquid Texture Start Regular - Tube Feed Start N/A - Weight Bearing Precaution WBAT right LE - Skin care per protocol - Diet - Solid Texture Regular - Shower shower DISCHARGE PLAN: - Estimated Length of Stay (days) 12. - Consensus on plan Discharge plan has been discussed with primary caregiver. Patient/Family is in agreement with the alejandra n. Primary caregiver is in agreement with the plan. - Patient/Family Goals Return home with assistance. - Planned Living Setting Upon Discharge Home, to live with Family/Relatives. SIGNATURE PANEL: (CDT)
--- NOTE | 2018-03-13 12:22 | PAPE ---
PATIENT: [facility] MR# [id number] REFERRING DOCTOR leonard Leong EVALUATION DATE AND TIME 03/13/2018 12:20 (CDT) NAME VINCE [place] DATE OF 1945 AGE 73 PHONE SSN# [id number] GENDER female EVALUATING PHYSICIAN Dr. Richi Fitzgerald M.D. 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 PATIENT NEEDS CLOSE MEDICAL SUPERVISION BY A REHABILITATION PHYSICIAN FOR: Bowel and Bladder Management Coordination of Treatment Team Medical and Co-Morbidity Management PATIENT REQUIRES 24X7 REHAB NURSING FOR MEDICAL AND FUNCTIONAL MGT. OF THE FOLLOWING DEFICITS: ADL's Ambulation Bowel and Bladder Management Cognition Communication Disease Management Medication Management Patient/Family Education Providing Safe Environment Transfers PATIENT REQUIRES INTENSIVE, COORDINATED INTERDISCIPLINARY APPROACH TO REHAB: Arranging Home Equipment/Services Discharge Planning Family Intervention/Training Chairman & Ceo/Case Management LIST OF IDENTIFIED AND POTENTIAL PROBLEMS: Alteration in leisure activities Bladder, Incontinence Blood Pressure, Hypertension/hypotension Issues Bowel, Incontinence Infection, Actual or Potential Mobility Impaired Pain, Alteration in Comfort Self Care Deficit Skin Integrity, Actual or Potential Urinary Tract Infection (UTI), Actual or Potential RISK FOR COMPLICATIONS - Hypertension CVA. Hypotension. VT. TIA. INTERVENTIONS - Hypertension PATIENT COULD BE AT RISK FOR COMPLICATIONS FROM ADVERSE MEDICAL CONDITIONS DUE TO HIS/HER COMORBIDITI ES AND THE RIGORS OF THE INTENSIVE REHABILLITATION PROGRAM. METHODS OR INTERVENTIONS TO AVOID COMPLIC ATIONS INCLUDE: - Infection Clinical staff to assess and manage the signs and symptoms of infection including fever, redness, war mth, etc. - Urinary Tract Infection - Falls Patient will be evaluated for Fall Precautions and will be placed on Fall Precautions as indicated pe r protocol. - Skin Breakdown Nursing will assess skin daily using assessment tool and will place on Skin Breakdown Precautions as indicated per protocol. - Pain Clinical staff may employ non-medication methods such as massage, distraction, decrease stimulus, etc . as needed. Clinical staff will assess patient's pain level every shift per protocol to assess and e nsure pain management effectiveness. Medications will be given and the pain level re-assessed. PRELIMINARY PLAN OF CARE: - Physical Therapy Patient needs Physical Therapy for a daily minimum of 1.5 hours at least 5 out of 7 days, to improve: Mobility, Strengthening, Transfers, Stretching, ROM, Endurance, Ability to manage stairs, Gait, and Balance. - Rehabilitation Nursing Patient requires 24x7 Rehabilitation Nursing for: Pain Issues, Identifying and preventing risk factor s, Monitoring and reporting current medical conditions, Assisting with ambulation and transfer, Karlo ting with all ADL-s, Teaching patients about disease process and medications, Family teaching, Provid ing safe environment, Bowel and Bladder Issues, Skin Integrity, and Medication Management. Patient needs Chairman & Ceo and/or Case Management for: Discharge Planning, Arranging Home Equipmen t or Services, and Family Interventions. - Dietary and Nutrition Services Patient needs Dietary and Nutrition Services for: Adequate Nutrition, Nutritional Supplements, and Nu tritional Education. - Occupational Therapy Patient needs Occupational Therapy for a daily minimum of 1.5 hours at least 5 out of 7 days, to impr ove Activities of Daily Living, including: Eating, Grooming, Bathing, Dressing, Toileting, Toilet Tra nsfers, Community Reintegration, Higher functional activities, Adaptive Equipment, Splinting, Househo ld Tasks, and Other activities as determined. POTENTIAL FUNCTIONAL GOALS FOR PATIENT TO ACHIEVE BY DISCHARGE: - Safety Precaution Patient will remain free from falls or injury at time of discharge. - Bed Mobility Patient will perform bed mobility at 4-Yumiko level of assistance. - Transfers Patient will complete transfers from bed to chair at 4-Yumiko level of assistance. - Mobility Patient will ambulate 150 ft with 4-Yumiko level of assistance with RW. PATIENT REHAB POTENTIAL Expected level of measurable improvement will be of a practical value to patient's functional capacit y or adaptations to impairments Has a viable Discharge Plan Medically appropriate; condition is sufficiently stable to participate in intensive rehab program Patient is able and expected to receive 3 hours of individualized therapy daily on at least 5 of ever y 7 days Patient's prognosis for significant practical improvement within a reasonable period of time appears Good DISCHARGE PLAN: - Estimated Length of Stay (days) 12. - Consensus on plan Discharge plan has been discussed with primary caregiver. Patient/Family is in agreement with the alejandra n. Primary caregiver is in agreement with the plan. - Patient/Family Goals Return home with assistance. - Planned Living Setting Upon Discharge Home, to live with Family/Relatives. CONCLUSION ON REHABILITATION NECESSITY: I have evaluated patient's pre-admission functional status and, comparing it to the patient's post-ad mission functional status now, I conclude that the pre-admission assessment was accurate. Patient's c ondition on admission supports the medical necessity of admission to [facility]. It is safe to proceed with patient's therapy program. SIGNATURE PANEL: (CDT)
[2018-03-13 14:51] LABS: Arterial Blood Carboxyhemoglob 1.7 % (0-1.5); Blood Gas Oxyhemoglobin 95.3 % (94-97); Blood O2 Saturation 97.5 % (92-98.5)
--- NOTE | 2018-03-13 15:02 | RAD REPORT ---
EXAM DESCRIPTION: RAD - Chest Single View - 03/13/2018 2:47 pm CLINICAL HISTORY: c/o dizziness and not feeling "well or right" Chest pain. COMPARISON: No comparisons FINDINGS: Portable technique limits examination quality. The lungs are grossly clear. The heart is mildly prominent in size. No displaced fractures.Left total shoulder arthroplasty. IMPRESSION: No acute intrathoracic process suspected.
[2018-03-13] MEDS: ALBUTEROL 2.5 MG/3 ML NEB SOL NEB PRN (15:35)
[2018-03-13] MEDS: GUAIFENESIN/DM 5 ML UCUP PO PRN (15:49)
[2018-03-13] MEDS: OXYCODONE HCL 5 MG TAB PO PRN ×2 (16:22→20:25)
[2018-03-13] MEDS: APIXABAN 2.5 MG TABLET PO SCH (19:08)
[2018-03-13] MEDS: ATORVASTATIN 10 MG TAB PO SCH (20:25)
[2018-03-13] MEDS: LORAZEPAM 0.5 MG TABLET PO SCH (20:25)
--- NOTE | 2018-03-14 02:27 | FAST ---
SHIFT START DATE/TIME: 03/13/2018 19:00 (CDT) SHIFT END DATE/TIME: 03/14/2018 07:00 (CDT) NAME VINCE [place] DATE OF : 1945 DATE OF ADMISSION: 03/11/2018 14:49 (CDT) PHONE: AGE: 73 SSN# [id number] GENDER: Female ENCOUNTER PHYSICIAN: Dr. Richi Fitzgerald M.D. ADMISSION DIAGNOSIS: - Orthopaedic Disorders 08 - Other Orthopaedic (08.9) right hip dislocation. EATING: Activity did not occur on this shift EATING - SCORE: 0-UNK GROOMING: Activity did not occur on this shift GROOMING - SCORE: 0-UNK BATHING: Activity did not occur on this shift BATHING - SCORE: 0-UNK DRESSING - UPPER BODY: Activity did not occur on this shift ARTICLES SCORE Total number of steps: 0 DRESSING - UPPER BODY - SCORE: 0-UNK DRESSING - LOWER BODY: Activity did not occur on this shift ARTICLES SCORE Total number of steps: 0 DRESSING - LOWER BODY - SCORE: 0-UNK TOILETING: TOILETING - STEP 1: Does the patient require assistance with toileting? Yes. TOILETING - STEP 2: Does the patient require the assistance of a helper? Yes. TOILETING - STEP 3: How much assistance does the patient require from the helper? Hands-on assistance from the helper TOILETING - STEP 4: Of the 3 tasks: 1) Adjusting clothing prior to use, 2) Cleansing of perineal area, 3) Adjusting clot corrine after use; How many tasks does the patient perform WITHOUT assistance of the helper? One task TOILETING - SCORE: 2-MAX BLADDER MANAGEMENT: BLADDER MANAGEMENT - STEP 1: Does the patient control the bladder completely and intentionally without equipment or devices or med ications, and is always continent? No. BLADDER MANAGEMENT - STEP 2: Does the patient require the assistance of a helper? Yes. BLADDER MANAGEMENT - STEP 3: How much assistance does the patient require from the helper? Patient requires contact assistance fro m the helper BLADDER MANAGEMENT - STEP 4: How much contact assistance does the patient require from the helper? Patient requires minimal assist ance to maintain an external device - by positioning, and the patient performs 75% or more of bladder management tasks, while the helper provides less than 25% of the assistance to position patient on / off bedpan BLADDER MANAGEMENT - SCORE: 4-MIN BOWEL MANAGEMENT: Activity did not occur on this shift BOWEL MANAGEMENT - SCORE: 7-IND TRANSFERS: BED, CHAIR, WHEELCHAIR: TRANSFERS: BED, CHAIR, WHEELCHAIR - STEP 1: Does the patient require assistance with bed, chair, or wheelchair transfers? Yes. TRANSFERS: BED, CHAIR, WHEELCHAIR - STEP 2: Does the patient require the assistance of a helper? Yes. TRANSFERS: BED, CHAIR, WHEELCHAIR - STEP 3: How much assistance does the patient require from the helper? Lifting of the legs TRANSFERS: BED, CHAIR, WHEELCHAIR - STEP 4: How many legs does the patient require the helper to lift? both legs TRANSFERS: BED, CHAIR, WHEELCHAIR - SCORE: 3-MOD TRANSFERS: TOILET: TRANSFERS: TOILET - STEP 1: Does the patient require assistance with toilet transfers? Yes. TRANSFERS: TOILET - STEP 2: Does the patient require the assistance of a helper? Yes. TRANSFERS: TOILET - STEP 3: How much assistance does the patient require from the helper? Only supervision, cuing, coaxing, OR he lp to set out transfer equipment or to lock brakes and/or lift foot rests TRANSFERS: TOILET - SCORE: 5-SUP TRANSFERS: SHOWER: Activity did not occur on this shift TRANSFERS: SHOWER - SCORE: 0-UNK TRANSFERS: TUB: Activity did not occur on this shift TRANSFERS: TUB - SCORE: 0-UNK LOCOMOTION: WALK: Activity did not occur on this shift LOCOMOTION: WALK - SCORE: 0-UNK LOCOMOTION: WHEELCHAIR: Activity did not occur on this shift LOCOMOTION: WHEELCHAIR - SCORE: 0-UNK COMPREHENSION: COMPREHENSION: TYPE: Both COMPREHENSION - STEP 1: Does the patient require help to understand complex and abstract ideas (such as current events, finan renea, discharge planning, medical issues, relationships, etc)? No. COMPREHENSION - STEP 2: Does the patient need extra time, require an assistive device (such as glasses for visual comprehensi on or a hearing aid for auditory comprehension) or does s/he have mild difficulty understanding compl ex and abstract information? Yes. COMPREHENSION - SCORE: 6-JAYDE EXPRESSION EXPRESSION: TYPE: Both EXPRESSION - STEP 1: Does the patient require help expressing complex and abstract ideas (such as current events, finances , discharge planning, medical issues, relationships, etc)? No. EXPRESSION - STEP 2: Does the patient need extra time, require an assistive device (such as augmentive communication syste m or a communication board), OR does s/he have mild difficulty expressing complex and abstract ideas (including mild dysarthria or mild word-find problems)? Yes. EXPRESSION - SCORE: 6-JAYDE SOCIAL INTERACTION: SOCIAL INTERACTION - STEP 1: Does the patient require a helper to interact with others in social and therapeutic situations? No. SOCIAL INTERACTION - STEP 2: Does the patient need extra time in social situations, OR does s/he interact with staff, other patien ts, and family members ONLY in structured environments, OR does s/he require medication for social in teraction? Yes, patient requires medication for social interaction SOCIAL INTERACTION - SCORE: 6-JAYDE PROBLEM SOLVING: PROBLEM SOLVING - STEP 1: Does the patient need help to solve complex problems such as managing a checking account or confronti ng interpersonal problems? No. PROBLEM SOLVING - STEP 2: Does the patient require extra time to make decisions or solve problems, OR does s/he have slight dif ficulty reading, initiating, or self-correcting in unfamiliar situations? Yes, patient needs extra ti me. PROBLEM SOLVING - SCORE: 6-JAYDE MEMORY: MEMORY - STEP 1: Does the patient need help to remember frequently encountered people, daily routines, and executing r equests? No. MEMORY - STEP 2: Does the patient have slight difficulty recognizing frequently encountered people, daily routines, or executing requests without the need for repetition or using self-initiated or environmental cues to remember? Yes. MEMORY - SCORE: 6-JAYDE SIGNATURE PANEL: The following modified sections: Eating - Score, Grooming - Score, Bathing - Score, Dressing - Upper Body - Score, Dressing - Lower Body - Score, Toileting - Score, Bladder Management - Score, Bowel Man agement - Score, Transfers: Bed, Chair, Wheelchair - Score, Transfers: Toilet - Score, Transfers: Pepper wer - Score, Transfers: Tub - Score, Locomotion: Walk - Score, Locomotion: Wheelchair - Score, Compre hension - Score, Expression - Score, Social Interaction - Score, Problem Solving - Score, Memory - Sc ore were [electronically] signed by Alyce Valdez on WedMar 14 2018 02:25:52 GMT-0500 (Central Day light Time)
[2018-03-14] MEDS: HOME MED 1 EA UNK IH SCH ×2 (08:00)
--- NOTE | 2018-03-14 08:09 | EKG ---
Test Date: 2018-03-13 Test Time: 14:59:50 Director Of [employer]: MEASUREMENT RESULTS: Intervals: Rate: 77 MS: 128 QRSD: 64 QT: 406 QTc: 459 [place]: P: 70 MS: 128 QRS: 31 T: 18 INTERPRETIVE STATEMENTS: Normal sinus rhythm Normal ECG No previous ECG available for comparison Electronically Signed On 03-14-18 08:09:00 CDT by Seth Isaacs
[2018-03-14] MEDS: LIDOCAINE 5% PATCH TOP SCH (08:49)
[2018-03-14] MEDS: AMLODIPINE 5 MG TAB PO SCH (08:50)
[2018-03-14] MEDS: CYCLOBENZAPRINE 10 MG TAB PO SCH (08:50)
[2018-03-14] MEDS: FLUOXETINE 20 MG CAP PO SCH (08:50)
[2018-03-14] MEDS: APIXABAN 2.5 MG TABLET PO SCH ×2 (08:50→20:36)
[2018-03-14] MEDS: GABAPENTIN 300 MG CAP PO SCH ×2 (08:50→20:36)
[2018-03-14] MEDS: MAGNESIUM OXIDE 400 MG TAB PO SCH ×2 (08:52→20:36)
[2018-03-14] MEDS: PROMOD 30 ML DOSE PO SCH ×2 (08:57→20:37)
--- NOTE | 2018-03-14 09:53 | FAST ---
SHIFT START DATE/TIME: 03/14/2018 07:00 (CDT) SHIFT END DATE/TIME: 03/14/2018 19:00 (CDT) NAME VINCE [place] DATE OF : 1945 DATE OF ADMISSION: 03/11/2018 14:49 (CDT) PHONE: AGE: 73 SSN# [id number] GENDER: Female ENCOUNTER PHYSICIAN: Dr. Richi Fitzgerald M.D. ADMISSION DIAGNOSIS: - Orthopaedic Disorders 08 - Other Orthopaedic (08.9) right hip dislocation. EATING: EATING - STEP 1: Does the patient require assistance when eating? Yes. EATING - STEP 2: Does the patient require the assistance of a helper? No, patient only requires an assistive device, O R s/he takes more than reasonable time to eat, OR there is a safety concern, OR s/he requires modifie d food consistency EATING - SCORE: 6-JAYDE GROOMING: Activity did not occur on this shift GROOMING - SCORE: 0-UNK BATHING: Activity did not occur on this shift BATHING - SCORE: 0-UNK DRESSING - UPPER BODY: Activity did not occur on this shift ARTICLES SCORE Total number of steps: 0 DRESSING - UPPER BODY - SCORE: 0-UNK DRESSING - LOWER BODY: Activity did not occur on this shift ARTICLES SCORE Total number of steps: 0 DRESSING - LOWER BODY - SCORE: 0-UNK TOILETING: TOILETING - STEP 1: Does the patient require assistance with toileting? Yes. TOILETING - STEP 2: Does the patient require the assistance of a helper? Yes. TOILETING - STEP 3: How much assistance does the patient require from the helper? Hands-on assistance from the helper TOILETING - STEP 4: Of the 3 tasks: 1) Adjusting clothing prior to use, 2) Cleansing of perineal area, 3) Adjusting clot corrine after use; How many tasks does the patient perform WITHOUT assistance of the helper? Three tasks with steadying assistance from the helper TOILETING - SCORE: 4-MIN BLADDER MANAGEMENT: BLADDER MANAGEMENT - STEP 1: Does the patient control the bladder completely and intentionally without equipment or devices or med ications, and is always continent? No. BLADDER MANAGEMENT - STEP 2: Does the patient require the assistance of a helper? No, patient requires and independently uses an a ssistive device, such as a urinal, bedpan, bedside commode, catheter, absorbent pad, or collecting de vice BLADDER MANAGEMENT - SCORE: 6-JAYDE BOWEL MANAGEMENT: Activity did not occur on this shift BOWEL MANAGEMENT - SCORE: 7-IND TRANSFERS: BED, CHAIR, WHEELCHAIR: TRANSFERS: BED, CHAIR, WHEELCHAIR - STEP 1: Does the patient require assistance with bed, chair, or wheelchair transfers? Yes. TRANSFERS: BED, CHAIR, WHEELCHAIR - STEP 2: Does the patient require the assistance of a helper? Yes. TRANSFERS: BED, CHAIR, WHEELCHAIR - STEP 3: How much assistance does the patient require from the helper? Steadying/guiding assistance TRANSFERS: BED, CHAIR, WHEELCHAIR - SCORE: 4-MIN TRANSFERS: TOILET: TRANSFERS: TOILET - STEP 1: Does the patient require assistance with toilet transfers? Yes. TRANSFERS: TOILET - STEP 2: Does the patient require the assistance of a helper? Yes. TRANSFERS: TOILET - STEP 3: How much assistance does the patient require from the helper? Patient performs half or more of the tr ansferring tasks TRANSFERS: TOILET - STEP 4: Does the patient need only incidental help such as contact guard or steadying during toilet transfer? Yes. TRANSFERS: TOILET - SCORE: 4-MIN TRANSFERS: SHOWER: Activity did not occur on this shift TRANSFERS: SHOWER - SCORE: 0-UNK TRANSFERS: TUB: Activity did not occur on this shift TRANSFERS: TUB - SCORE: 0-UNK LOCOMOTION: WALK: Activity did not occur on this shift LOCOMOTION: WALK - SCORE: 0-UNK LOCOMOTION: WHEELCHAIR: Activity did not occur on this shift LOCOMOTION: WHEELCHAIR - SCORE: 0-UNK COMPREHENSION: COMPREHENSION: TYPE: Both COMPREHENSION - STEP 1: Does the patient require help to understand complex and abstract ideas (such as current events, finan renea, discharge planning, medical issues, relationships, etc)? No. COMPREHENSION - STEP 2: Does the patient need extra time, require an assistive device (such as glasses for visual comprehensi on or a hearing aid for auditory comprehension) or does s/he have mild difficulty understanding compl ex and abstract information? Yes. COMPREHENSION - SCORE: 6-JAYDE EXPRESSION EXPRESSION: TYPE: Both EXPRESSION - STEP 1: Does the patient require help expressing complex and abstract ideas (such as current events, finances , discharge planning, medical issues, relationships, etc)? No. EXPRESSION - STEP 2: Does the patient need extra time, require an assistive device (such as augmentive communication syste m or a communication board), OR does s/he have mild difficulty expressing complex and abstract ideas (including mild dysarthria or mild word-find problems)? Yes. EXPRESSION - SCORE: 6-JAYDE SOCIAL INTERACTION: SOCIAL INTERACTION - STEP 1: Does the patient require a helper to interact with others in social and therapeutic situations? No. SOCIAL INTERACTION - STEP 2: Does the patient need extra time in social situations, OR does s/he interact with staff, other patien ts, and family members ONLY in structured environments, OR does s/he require medication for social in teraction? Yes, patient interacts appropriately ONLY in structured environments SOCIAL INTERACTION - SCORE: 6-JAYDE PROBLEM SOLVING: PROBLEM SOLVING - STEP 1: Does the patient need help to solve complex problems such as managing a checking account or confronti ng interpersonal problems? No. PROBLEM SOLVING - STEP 2: Does the patient require extra time to make decisions or solve problems, OR does s/he have slight dif ficulty reading, initiating, or self-correcting in unfamiliar situations? Yes, patient needs extra ti me. PROBLEM SOLVING - SCORE: 6-JAYDE MEMORY: MEMORY - STEP 1: Does the patient need help to remember frequently encountered people, daily routines, and executing r equests? No. MEMORY - STEP 2: Does the patient have slight difficulty recognizing frequently encountered people, daily routines, or executing requests without the need for repetition or using self-initiated or environmental cues to remember? Yes. MEMORY - SCORE: 6-JAYDE SIGNATURE PANEL: The following modified sections: Eating - Score, Grooming - Score, Bathing - Score, Dressing - Upper Body - Score, Dressing - Lower Body - Score, Toileting - Score, Bladder Management - Score, Bowel Man agement - Score, Transfers: Bed, Chair, Wheelchair - Score, Transfers: Toilet - Score, Transfers: Pepper wer - Score, Transfers: Tub - Score, Locomotion: Walk - Score, Locomotion: Wheelchair - Score, Compre hension - Score, Expression - Score, Social Interaction - Score, Problem Solving - Score, Memory - Sc ore were [electronically] signed by Luis Banks on WedMar 14 2018 09:52:59 GMT-0500 (Central Daylight Time)
[2018-03-14] MEDS: OXYCODONE HCL 5 MG TAB PO PRN ×2 (12:28→20:36)
--- NOTE | 2018-03-14 17:49 | R.PN ---
ENCOUNTER DATE AND TIME: 03/14/2018 17:42 (CDT) NAME VINCE [place] DATE OF : 1945 DATE OF ADMISSION: 03/11/2018 14:49 (CDT) right hip dislocationCHIEF COMPLAINT: Right hip dislocation SUBJECTIVE: Pt denied any Shortness of Breath. Pt denied any depression. Chest x-ray from 03-13-18 due to upper airway rhonchi shows no acute processes. EKG due to chest disco mfort done 03-14-18 is normal. Did minimum to moderate assistance with activities of daily living. Ambulated with rolling walker 15', 20' and 8' with minimum assistance. VITAL SIGNS Temperature: 97.4 F SBP/DBP: 128/61 Pulse: 81 Resp: 16 MEDICATION ALLERGIES: penicillins SULFA ENVIRONMENTAL ALLERGIES: - Substance Allergies None Known - Other Allergies None Known NURSING: - Shower allowing shower - Skin care per protocol PRECAUTIONS: - Weight Bearing Precaution WBAT right LE ACTIVITIES OOB only with supervision THERAPIES: - Occupational Therapy Evaluate and Treat. - Physical Therapy Evaluate and Treat. PHYSICAL EXAM - Gen Alert and awake Lying in bed No apparent distress Oriented to: person, time, and place - Skin No skin breakdown. Normacephalic - Eyes No abnormalities - ENMT No abnormalities - Neck No abnormalities - CVS RRR - Chest Clear - Abd Soft - GI Non distended No abnormalities - No abnormalities - Ext Mild bilateral lower extremity edema. - MSK Unremarkable - Neuro 4/5 strength bilaterally lower extremities. - Psych No abnormalities ASSESSMENT: Pt. is a 73 yo Right-handed white female.On 03/04/2018 she was admitted to [facility] with diagnosis right hip dislocation.Her impairment category is Orthopaedic Disorders 08 - Ot her Orthopaedic (08.9).Pre-morbidly, Pt. was independent/mod-I in Self-Care, Sphincter Control, Trans fers Control, Communication, Social Cognition, and Locomotion; and she had good Sphincter Control.Cur rently, she has deficits of Balance, Endurance, Safety Awareness, Transfers Control, Locomotion, and Self-Care.Pt. is now referred to [facility] for acute in-patient rehabilitatio n in order to maximize patient's functional independence in activities of daily living, strength, ROM , and mobility.- Rehab Goal Patient has realistic goal of being discharged at assistance level 6-Michael to reside at Home with Fam larry/Relatives. MDM/PLAN: - Physical Therapy Decreased range of motion - to improve, our physical therapists will perform initial evaluation of p t's status upon admission and devise an individualized program for increasing patient's Range of Emmanuel on. Gait dysfunction - to improve, our physical therapists will perform initial evaluation of pt's statu s upon admission and devise an individualized program for Gait Training, and Wheel Chair mobility Inability to transfer - to improve, our physical therapists will perform initial evaluation of pt's status upon admission and devise an individualized program for Bed mobility Need for home safety evaluation - to improve, our physical therapists will perform initial evaluatio n of pt's status upon admission and devise an individualized program for Home Evaluation Need in caregiver upon discharge - to improve, our physical therapists will perform initial evaluati on of pt's status upon admission and devise an individualized program for Caregiver Training New precaution - to improve, our physical therapists will perform initial evaluation of pt's status upon admission and devise an individualized program for Patient precaution education Edema - to improve, our physical therapists will perform initial evaluation of pt's status upon admis bart and devise an individualized program for Elevation Training, and Lymphedema Therapy Poor balance - to improve, our physical therapists will perform initial evaluation of pt's status up on admission and devise an individualized program for Balance Training Poor endurance - to improve, our physical therapists will perform initial evaluation of pt's status upon admission and devise an individualized program for Endurance Training Weakness - to improve, our physical therapists will perform initial evaluation of pt's status upon a dmission and devise an individualized program for Aquatic Therapy, Neuromuscular Reeducation, and Str engthening Achieving independence - to improve, our physical therapists will perform initial evaluation of pt's status upon admission and devise an individualized program for Community Reintegration Activities - Occupational Therapy ADL deficits - to improve, our occupation therapists will perform initial evaluation of pt's status upon admission and devise an individualized program for Bathing, Bed mobility, Community Reintegratio n, Cooking, Dressing, Eating, Fine Motor Skills, Grooming, Homemaking, Kitchen Mobility, Laundry, Pat ient Education, Safety Awareness, Splinting - Positioning, Transfers(Toilet, Tub, Shower), and Wheel Chair Management Need for career coordinator - to improve, our occupation therapists will perform initial evaluation of pt's status upon admission and devise an individualized program for Caregiver Training Weakness - to improve, our occupation therapists will perform initial evaluation of pt's status upon admission and devise an individualized program for Aquatic Therapy, Balance, Endurance, UE ROM, and UE strengthening - Diet Type Continue Regular - Diet - Liquid Texture Continue Regular - Tube Feed Continue N/A - Weight Bearing Precaution WBAT right LE - Skin care per protocol - Diet - Solid Texture Continue Regular - Shower allowing shower FUNCTIONAL STATUS: UPDATED AT WEEKLY TEAM CONFERENCE - Bladder Same accident frequency: 7-Ind - No accidents in the past 7 days - Bowel Same accident frequency: 7-Ind - No accidents in the past 7 days - Walking Same score based on distance walked: 0(N/A) - Wheelchair Same score based on distance traveled: 0(N/A) FUNCTIONAL STATUS: - Self-Care A. Eating Ind B. Grooming sup C. Bathing Yumiko D. Dressing - Upper sup E. Dressing - Lower modA F. Toileting modA - Sphincter Control G: Bladder control Ind H: Bowel control Ind - Transfers Control I. Bed/Chair/Wheelchair Yumiko J. Toilet Yumiko K. Tub/Shower Yumiko - Locomotion L. Walk/Wheelchair (B) modA M. Stairs ADNO - Communication N. Comprehension (B) Michael O. Expression (B) Michael - Social Cognition P. Social Interaction Michael Q. Problem Solving Michael R. Memory Michael - Endurance Fair - Balance Fair - Safety Awareness Poor CURRENT FUNC. DEFICITS: Balance, Endurance, Safety Awareness, Transfers Control, Locomotion, and Self-Care SIGNATURE PANEL: (CDT)
[2018-03-14] MEDS: ALBUTEROL 2.5 MG/3 ML NEB SOL NEB PRN (18:34)
[2018-03-14] MEDS: GUAIFENESIN/DM 5 ML UCUP PO PRN (20:36)
[2018-03-14] MEDS: ATORVASTATIN 10 MG TAB PO SCH (20:36)
[2018-03-14] MEDS: CALCIUM CARBONATE CHEW 500MG TAB PO PRN (21:41)
[2018-03-14] MEDS: LORAZEPAM 0.5 MG TABLET PO SCH (21:41)
[2018-03-14 23:25] VITALS: BMI 39.1
--- NOTE | 2018-03-15 03:01 | FAST ---
SHIFT START DATE/TIME: 03/14/2018 19:00 (CDT) SHIFT END DATE/TIME: 03/15/2018 07:00 (CDT) NAME VINCE [place] DATE OF : 1945 DATE OF ADMISSION: 03/11/2018 14:49 (CDT) PHONE: AGE: 73 SSN# [id number] GENDER: Female ENCOUNTER PHYSICIAN: Dr. Richi Fitzgerald M.D. ADMISSION DIAGNOSIS: - Orthopaedic Disorders 08 - Other Orthopaedic (08.9) right hip dislocation. EATING: Activity did not occur on this shift EATING - SCORE: 0-UNK GROOMING: Wash, rinse, and dry hands GROOMING - STEP 1: Does the patient require assistance when grooming? Yes. GROOMING - STEP 2: Does the patient require the assistance of a helper? Yes. GROOMING - STEP 3: How much assistance does the patient require from the helper? Cuing, coaxing, instructions, or encour agement for completion of grooming GROOMING - SCORE: 5-SUP BATHING: Activity did not occur on this shift BATHING - SCORE: 0-UNK DRESSING - UPPER BODY: Patient is not dressing in public clothing ARTICLES SCORE Total number of steps: 0 DRESSING - UPPER BODY - SCORE: 0-UNK DRESSING - LOWER BODY: Patient is not dressing in public clothing ARTICLES SCORE Total number of steps: 0 DRESSING - LOWER BODY - SCORE: 0-UNK TOILETING: TOILETING - STEP 1: Does the patient require assistance with toileting? Yes. TOILETING - STEP 2: Does the patient require the assistance of a helper? Yes. TOILETING - STEP 3: How much assistance does the patient require from the helper? Hands-on assistance from the helper TOILETING - STEP 4: Of the 3 tasks: 1) Adjusting clothing prior to use, 2) Cleansing of perineal area, 3) Adjusting clot corrine after use; How many tasks does the patient perform WITHOUT assistance of the helper? One task TOILETING - SCORE: 2-MAX BLADDER MANAGEMENT: [place] removes incontinent device (Depends, pull ups, etc.); cleans the patient after accident / inco ntinent episode; and, applies new incontinent device. BLADDER MANAGEMENT - SCORE: 1-DEP BLADDER MANAGEMENT - FREQUENCY OF ACCIDENTS: BLADDER MANAGEMENT(FA) - STEP 1: How many accidents has the patient had during the current shift? 1 BOWEL MANAGEMENT: BOWEL MANAGEMENT - STEP 1: Does the patient control bowels completely and intentionally without equipment devices or medications AND is always continent? No. BOWEL MANAGEMENT - STEP 2: Does the patient require the assistance of a helper? Yes. BOWEL MANAGEMENT - STEP 3: How much assistance does the patient require from the helper? Patient requires supervision, stand by, cueing, coaxing, or setup of equipment - placing within reach of patient and emptying device / bedpa nd or BSC bucket - to maintain either satisfactory bowel pattern or managing an external device such as an absorbent pad, colostomy bag / ileostomy bag BOWEL MANAGEMENT - SCORE: 5-SUP TRANSFERS: BED, CHAIR, WHEELCHAIR: TRANSFERS: BED, CHAIR, WHEELCHAIR - STEP 1: Does the patient require assistance with bed, chair, or wheelchair transfers? Yes. TRANSFERS: BED, CHAIR, WHEELCHAIR - STEP 2: Does the patient require the assistance of a helper? Yes. TRANSFERS: BED, CHAIR, WHEELCHAIR - STEP 3: How much assistance does the patient require from the helper? Steadying/guiding assistance TRANSFERS: BED, CHAIR, WHEELCHAIR - SCORE: 4-MIN TRANSFERS: TOILET: TRANSFERS: TOILET - STEP 1: Does the patient require assistance with toilet transfers? Yes. TRANSFERS: TOILET - STEP 2: Does the patient require the assistance of a helper? Yes. TRANSFERS: TOILET - STEP 3: How much assistance does the patient require from the helper? Patient performs half or more of the tr ansferring tasks TRANSFERS: TOILET - STEP 4: Does the patient need only incidental help such as contact guard or steadying during toilet transfer? Yes. TRANSFERS: TOILET - SCORE: 4-MIN TRANSFERS: SHOWER: Activity did not occur on this shift TRANSFERS: SHOWER - SCORE: 0-UNK TRANSFERS: TUB: Activity did not occur on this shift TRANSFERS: TUB - SCORE: 0-UNK LOCOMOTION: WALK: Activity did not occur on this shift LOCOMOTION: WALK - SCORE: 0-UNK LOCOMOTION: WHEELCHAIR: Activity did not occur on this shift LOCOMOTION: WHEELCHAIR - SCORE: 0-UNK COMPREHENSION: COMPREHENSION: TYPE: Both COMPREHENSION - STEP 1: Does the patient require help to understand complex and abstract ideas (such as current events, finan renea, discharge planning, medical issues, relationships, etc)? No. COMPREHENSION - STEP 2: Does the patient need extra time, require an assistive device (such as glasses for visual comprehensi on or a hearing aid for auditory comprehension) or does s/he have mild difficulty understanding compl ex and abstract information? Yes. COMPREHENSION - SCORE: 6-JAYDE EXPRESSION EXPRESSION: TYPE: Both EXPRESSION - STEP 1: Does the patient require help expressing complex and abstract ideas (such as current events, finances , discharge planning, medical issues, relationships, etc)? No. EXPRESSION - STEP 2: Does the patient need extra time, require an assistive device (such as augmentive communication syste m or a communication board), OR does s/he have mild difficulty expressing complex and abstract ideas (including mild dysarthria or mild word-find problems)? No. EXPRESSION - SCORE: 7-IND SOCIAL INTERACTION: SOCIAL INTERACTION - STEP 1: Does the patient require a helper to interact with others in social and therapeutic situations? No. SOCIAL INTERACTION - STEP 2: Does the patient need extra time in social situations, OR does s/he interact with staff, other patien ts, and family members ONLY in structured environments, OR does s/he require medication for social in teraction? Yes, patient requires medication for social interaction SOCIAL INTERACTION - SCORE: 6-JAYDE PROBLEM SOLVING: PROBLEM SOLVING - STEP 1: Does the patient need help to solve complex problems such as managing a checking account or confronti ng interpersonal problems? No. PROBLEM SOLVING - STEP 2: Does the patient require extra time to make decisions or solve problems, OR does s/he have slight dif ficulty reading, initiating, or self-correcting in unfamiliar situations? Yes, patient needs extra ti me. PROBLEM SOLVING - SCORE: 6-JAYDE MEMORY: MEMORY - STEP 1: Does the patient need help to remember frequently encountered people, daily routines, and executing r equests? No. MEMORY - STEP 2: Does the patient have slight difficulty recognizing frequently encountered people, daily routines, or executing requests without the need for repetition or using self-initiated or environmental cues to remember? Yes. MEMORY - SCORE: 6-JAYDE SIGNATURE PANEL: The following modified sections: Eating - Score, Grooming - Score, Dressing - Upper Body - Score, Salomon ssing - Lower Body - Score, Toileting - Score, Bladder Management - Score, Bowel Management - Score, Transfers: Bed, Chair, Wheelchair - Score, Transfers: Toilet - Score, Transfers: Shower - Score, Javier sfers: Tub - Score, Locomotion: Walk - Score, Locomotion: Wheelchair - Score, Comprehension - Score, Expression - Score, Social Interaction - Score, Problem Solving - Score, Memory - Score were [electro nically] signed by Anu Orosco CNA on WedMar 15 2018 03:00:05 GMT-0500 (Central Daylight Time)
[2018-03-15] MEDS: PROMOD 30 ML DOSE PO SCH ×2 (08:00→20:21)
[2018-03-15] MEDS: ALBUTEROL INHALER 60 PUFF/8 GM IH SCH (08:00)
[2018-03-15] MEDS: LIDOCAINE 5% PATCH TOP SCH (08:00)
[2018-03-15] MEDS: HOME MED 1 EA UNK IH SCH (08:00)
[2018-03-15] MEDS: CYCLOBENZAPRINE 10 MG TAB PO SCH (08:51)
[2018-03-15] MEDS: FLUOXETINE 20 MG CAP PO SCH (08:51)
[2018-03-15] MEDS: MAGNESIUM OXIDE 400 MG TAB PO SCH ×2 (08:51→20:20)
[2018-03-15] MEDS: APIXABAN 2.5 MG TABLET PO SCH ×2 (08:52→20:20)
[2018-03-15] MEDS: AMLODIPINE 5 MG TAB PO SCH (08:52)
[2018-03-15] MEDS: GABAPENTIN 300 MG CAP PO SCH ×2 (08:52→20:21)
[2018-03-15] MEDS: GUAIFENESIN/DM 5 ML UCUP PO PRN ×2 (08:58→20:21)
[2018-03-15] MEDS: OXYCODONE HCL 5 MG TAB PO PRN ×3 (10:01→22:36)
[2018-03-15] MEDS ORDERED: BACLOFEN 10 MG TAB PO PRN (11:12)
--- NOTE | 2018-03-15 14:55 | RAD REPORT ---
EXAM DESCRIPTION: RAD - Lumbar Spine - Single View - 03/15/2018 2:43 pm CLINICAL HISTORY: Increasing back pain COMPARISON: March 10 TECHNIQUE: Single cross-table lateral view of the lumbar spine obtained. FINDINGS: Underlying osteopenic changes again noted. Lumbar body height and alignment remain normal. Slight narrowing of the L3-4 disc space noted. Endplate spurring present at this level as well. Prom inent mid and lower lumbar facet degenerative change present similar to the comparison. Aortic calcif ications in soft tissue calcifications posterior to the spinous processes lower lumbar spine are unch anged. No new finding during this interval. IMPRESSION: Osteopenic and degenerative changes in the lumbar spine as detailed. No acute finding si nce March 10 imaging.
[2018-03-15] MEDS ORDERED: OXYCODONE HCL 5 MG TAB PO ONE (15:00)
[2018-03-15] MEDS: predniSONE 10 MG TAB PO SCH (17:15)
--- NOTE | 2018-03-15 17:21 | FAST ---
SHIFT START DATE/TIME: 03/15/2018 07:00 (CDT) SHIFT END DATE/TIME: 03/15/2018 19:00 (CDT) NAME VINCE [place] DATE OF : 1945 DATE OF ADMISSION: 03/11/2018 14:49 (CDT) PHONE: AGE: 73 SSN# [id number] GENDER: Female ENCOUNTER PHYSICIAN: Dr. Richi Fitzgerald M.D. ADMISSION DIAGNOSIS: - Orthopaedic Disorders 08 - Other Orthopaedic (08.9) right hip dislocation. EATING: EATING - STEP 1: Does the patient require assistance when eating? Yes. EATING - STEP 2: Does the patient require the assistance of a helper? No, patient only requires an assistive device, O R s/he takes more than reasonable time to eat, OR there is a safety concern, OR s/he requires modifie d food consistency EATING - SCORE: 6-JAYDE GROOMING: Comb/brush hair Oral care Wash, rinse, and dry face Wash, rinse, and dry hands GROOMING - STEP 1: Does the patient require assistance when grooming? Yes. GROOMING - STEP 2: Does the patient require the assistance of a helper? No. The patient only requires an assistive devic e, OR takes more than reasonable time to groom, OR there is a concern for safety as the patient groom s GROOMING - SCORE: 6-JAYDE BATHING: Activity did not occur on this shift BATHING - SCORE: 0-UNK DRESSING - UPPER BODY: Activity did not occur on this shift ARTICLES SCORE Total number of steps: 0 DRESSING - UPPER BODY - SCORE: 0-UNK DRESSING - LOWER BODY: Activity did not occur on this shift ARTICLES SCORE Total number of steps: 0 DRESSING - LOWER BODY - SCORE: 0-UNK TOILETING: TOILETING - STEP 1: Does the patient require assistance with toileting? Yes. TOILETING - STEP 2: Does the patient require the assistance of a helper? Yes. TOILETING - STEP 3: How much assistance does the patient require from the helper? Hands-on assistance from the helper TOILETING - STEP 4: Of the 3 tasks: 1) Adjusting clothing prior to use, 2) Cleansing of perineal area, 3) Adjusting clot corrine after use; How many tasks does the patient perform WITHOUT assistance of the helper? Three tasks with steadying assistance from the helper TOILETING - SCORE: 4-MIN BLADDER MANAGEMENT: BLADDER MANAGEMENT - STEP 1: Does the patient control the bladder completely and intentionally without equipment or devices or med ications, and is always continent? No. BLADDER MANAGEMENT - STEP 2: Does the patient require the assistance of a helper? No, patient requires and independently uses an a ssistive device, such as a urinal, bedpan, bedside commode, catheter, absorbent pad, or collecting de vice BLADDER MANAGEMENT - SCORE: 6-JAYDE BLADDER MANAGEMENT - FREQUENCY OF ACCIDENTS: BLADDER MANAGEMENT(FA) - STEP 1: How many accidents has the patient had during the current shift? 0 BOWEL MANAGEMENT: Activity did not occur on this shift BOWEL MANAGEMENT - SCORE: 7-IND BOWEL MANAGEMENT - FREQUENCY OF ACCIDENTS: BOWEL MANAGEMENT(FA) - STEP 1: How many accidents has the patient had during the current shift? 0 TRANSFERS: BED, CHAIR, WHEELCHAIR: TRANSFERS: BED, CHAIR, WHEELCHAIR - STEP 1: Does the patient require assistance with bed, chair, or wheelchair transfers? Yes. TRANSFERS: BED, CHAIR, WHEELCHAIR - STEP 2: Does the patient require the assistance of a helper? Yes. TRANSFERS: BED, CHAIR, WHEELCHAIR - STEP 3: How much assistance does the patient require from the helper? Steadying/guiding assistance TRANSFERS: BED, CHAIR, WHEELCHAIR - SCORE: 4-MIN TRANSFERS: TOILET: TRANSFERS: TOILET - STEP 1: Does the patient require assistance with toilet transfers? Yes. TRANSFERS: TOILET - STEP 2: Does the patient require the assistance of a helper? Yes. TRANSFERS: TOILET - STEP 3: How much assistance does the patient require from the helper? Patient performs half or more of the tr ansferring tasks TRANSFERS: TOILET - STEP 4: Does the patient need only incidental help such as contact guard or steadying during toilet transfer? Yes. TRANSFERS: TOILET - SCORE: 4-MIN TRANSFERS: SHOWER: Activity did not occur on this shift TRANSFERS: SHOWER - SCORE: 0-UNK TRANSFERS: TUB: Activity did not occur on this shift TRANSFERS: TUB - SCORE: 0-UNK LOCOMOTION: WALK: Activity did not occur on this shift LOCOMOTION: WALK - SCORE: 0-UNK LOCOMOTION: WHEELCHAIR: LOCOMOTION: WHEELCHAIR - STEP 1: Does the patient need help to go 150 feet in a wheelchair? Yes. LOCOMOTION: WHEELCHAIR - STEP 2: How much assistance does the patient need from the helper? Only supervision, cuing, or coaxing LOCOMOTION: WHEELCHAIR - SCORE: 5-SUP COMPREHENSION: COMPREHENSION: TYPE: Both COMPREHENSION - STEP 1: Does the patient require help to understand complex and abstract ideas (such as current events, finan renea, discharge planning, medical issues, relationships, etc)? Yes. COMPREHENSION - STEP 2: Does the patient require help to understand questions or statements about basic needs or ideas (such as hunger, thirst, sleep, safety, daily schedule, room location, or discomfort) half or more of the t joon? No. COMPREHENSION - STEP 3: How often does the patient need help to understand directions and conversation about basic needs? Les s than 10% of the time COMPREHENSION - SCORE: 5-SUP EXPRESSION EXPRESSION: TYPE: Both EXPRESSION - STEP 1: Does the patient require help expressing complex and abstract ideas (such as current events, finances , discharge planning, medical issues, relationships, etc)? Yes. EXPRESSION - STEP 2: Does the patient require help to express basic necessities or ideas (such as hunger, thirst, sleep, s afety, daily schedule, room location, or discomfort) half or more of the time? No. EXPRESSION - STEP 3: How often does the patient need help to express directions and conversation about basic needs? Less t gallego 10% of the time EXPRESSION - SCORE: 5-SUP SOCIAL INTERACTION: SOCIAL INTERACTION - STEP 1: Does the patient require a helper to interact with others in social and therapeutic situations? No. SOCIAL INTERACTION - STEP 2: Does the patient need extra time in social situations, OR does s/he interact with staff, other patien ts, and family members ONLY in structured environments, OR does s/he require medication for social in teraction? Yes, patient needs extra time SOCIAL INTERACTION - SCORE: 6-JAYDE PROBLEM SOLVING: PROBLEM SOLVING - STEP 1: Does the patient need help to solve complex problems such as managing a checking account or confronti ng interpersonal problems? Yes. PROBLEM SOLVING - STEP 2: Does the patient solve basic routine problems half or more of the time? Yes. PROBLEM SOLVING - STEP 3: How often does the patient need help to solve basic routine problems? Less than 10% of the time PROBLEM SOLVING - SCORE: 5-SUP MEMORY: MEMORY - STEP 1: Does the patient need help to remember frequently encountered people, daily routines, and executing r equests? Yes. MEMORY - STEP 2: How often does the patient need help to remember frequently encountered people, daily routines, and e xecuting requests? Less than 10% of the time MEMORY - SCORE: 5-SUP SIGNATURE PANEL: The following modified sections: Eating - Score, Grooming - Score, Bathing - Score, Dressing - Upper Body - Score, Dressing - Lower Body - Score, Toileting - Score, Bladder Management - Score, Bowel Man agement - Score, Transfers: Bed, Chair, Wheelchair - Score, Transfers: Toilet - Score, Transfers: Pepper wer - Score, Transfers: Tub - Score, Locomotion: Walk - Score, Locomotion: Wheelchair - Score, Compre hension - Score, Expression - Score, Social Interaction - Score, Problem Solving - Score, Memory - Sc ore were [electronically] signed by Josie Spencer C.N.A. on WedMar 15 2018 16:22:11 T-0500 (Centra l Daylight Time)
[2018-03-15] MEDS: ALBUTEROL 2.5 MG/3 ML NEB SOL NEB PRN (20:01)
[2018-03-15] MEDS: CRANBERRY FRUIT EXTRACT 200 MG CAP PO SCH (20:20)
[2018-03-15] MEDS: ATORVASTATIN 10 MG TAB PO SCH (20:20)
[2018-03-15] MEDS: CIPROFLOXACIN HCL 500 MG TAB PO SCH (20:20)
[2018-03-15] MEDS: LORAZEPAM 0.5 MG TABLET PO SCH ×2 (21:00→22:36)
--- NOTE | 2018-03-15 21:42 | R.PN ---
ENCOUNTER DATE AND TIME: 03/15/2018 21:37 (CDT) NAME VINCE [place] DATE OF : 1945 DATE OF ADMISSION: 03/11/2018 14:49 (CDT) right hip dislocationCHIEF COMPLAINT: Right hip dislocation SUBJECTIVE: Pt denied any Shortness of Breath. Pt denied any depression. Chest x-ray from 03-13-18 due to upper airway rhonchi shows no acute processes. EKG due to chest disco mfort done 03-14-18 is normal. Has severe non-radiating lower back pain after ambulating. Gabapentin dosage was increased, oxycodone was given. Lumbar spine x-ray show no acute findings compared to 03-10-18. DJD noted. VITAL SIGNS Temperature: 97.4 F SBP/DBP: 135/57 Pulse: 63 Resp: 16 MEDICATION ALLERGIES: penicillins SULFA ENVIRONMENTAL ALLERGIES: - Substance Allergies None Known - Other Allergies None Known NURSING: - Shower allowing shower - Skin care per protocol PRECAUTIONS: - Weight Bearing Precaution WBAT right LE ACTIVITIES OOB only with supervision THERAPIES: - Occupational Therapy Evaluate and Treat. - Physical Therapy Evaluate and Treat. PHYSICAL EXAM - Gen Alert and awake Lying in bed No apparent distress Oriented to: person, time, and place - Skin No skin breakdown. Normacephalic - Eyes No abnormalities - ENMT No abnormalities - Neck No abnormalities - CVS RRR - Chest Clear - Abd Soft - GI Non distended No abnormalities - No abnormalities - Ext Mild bilateral lower extremity edema. - MSK Unremarkable - Neuro 4/5 strength bilaterally lower extremities. - Psych No abnormalities ASSESSMENT: Pt. is a 73 yo Right-handed white female.On 03/04/2018 she was admitted to [facility] with diagnosis right hip dislocation.Her impairment category is Orthopaedic Disorders 08 - Ot her Orthopaedic (08.9).Pre-morbidly, Pt. was independent/mod-I in Self-Care, Sphincter Control, Trans fers Control, Communication, Social Cognition, and Locomotion; and she had good Sphincter Control.Cur rently, she has deficits of Balance, Endurance, Safety Awareness, Transfers Control, Locomotion, and Self-Care.Pt. is now referred to [facility] for acute in-patient rehabilitatio n in order to maximize patient's functional independence in activities of daily living, strength, ROM , and mobility.- Rehab Goal Patient has realistic goal of being discharged at assistance level 6-Michael to reside at Home with Fam larry/Relatives. MDM/PLAN: - Physical Therapy Decreased range of motion - to improve, our physical therapists will perform initial evaluation of p t's status upon admission and devise an individualized program for increasing patient's Range of Emmanuel on. Gait dysfunction - to improve, our physical therapists will perform initial evaluation of pt's statu s upon admission and devise an individualized program for Gait Training, and Wheel Chair mobility Inability to transfer - to improve, our physical therapists will perform initial evaluation of pt's status upon admission and devise an individualized program for Bed mobility Need for home safety evaluation - to improve, our physical therapists will perform initial evaluatio n of pt's status upon admission and devise an individualized program for Home Evaluation Need in caregiver upon discharge - to improve, our physical therapists will perform initial evaluati on of pt's status upon admission and devise an individualized program for Caregiver Training New precaution - to improve, our physical therapists will perform initial evaluation of pt's status upon admission and devise an individualized program for Patient precaution education Edema - to improve, our physical therapists will perform initial evaluation of pt's status upon admi ssion and devise an individualized program for Elevation Training, and Lymphedema Therapy Poor balance - to improve, our physical therapists will perform initial evaluation of pt's status up on admission and devise an individualized program for Balance Training Poor endurance - to improve, our physical therapists will perform initial evaluation of pt's status upon admission and devise an individualized program for Endurance Training Weakness - to improve, our physical therapists will perform initial evaluation of pt's status upon a dmission and devise an individualized program for Aquatic Therapy, Neuromuscular Reeducation, and Str engthening Achieving independence - to improve, our physical therapists will perform initial evaluation of pt's status upon admission and devise an individualized program for Community Reintegration Activities - Occupational Therapy ADL deficits - to improve, our occupation therapists will perform initial evaluation of pt's status upon admission and devise an individualized program for Bathing, Bed mobility, Community Reintegratio n, Cooking, Dressing, Eating, Fine Motor Skills, Grooming, Homemaking, Kitchen Mobility, Laundry, Pat ient Education, Safety Awareness, Splinting - Positioning, Transfers(Toilet, Tub, Shower), and Wheel Chair Management Need for aged or disabled care worker - to improve, our occupation therapists will perform initial evaluation of pt's status upon admission and devise an individualized program for Caregiver Training Weakness - to improve, our occupation therapists will perform initial evaluation of pt's status upon admission and devise an individualized program for Aquatic Therapy, Balance, Endurance, UE ROM, and UE strengthening - Diet Type Continue Regular - Diet - Liquid Texture Continue Regular - Tube Feed Continue N/A - Weight Bearing Precaution WBAT right LE - Skin care per protocol - Diet - Solid Texture Continue Regular - Shower allowing shower FUNCTIONAL STATUS: UPDATED AT WEEKLY TEAM CONFERENCE - Bladder Same accident frequency: 7-Ind - No accidents in the past 7 days - Bowel Same accident frequency: 7-Ind - No accidents in the past 7 days - Walking Same score based on distance walked: 0(N/A) - Wheelchair Same score based on distance traveled: 0(N/A) FUNCTIONAL STATUS: - Self-Care A. Eating Ind B. Grooming sup C. Bathing Yumiko D. Dressing - Upper sup E. Dressing - Lower modA F. Toileting modA - Sphincter Control G: Bladder control Ind H: Bowel control Ind - Transfers Control I. Bed/Chair/Wheelchair Yumiko J. Toilet Yumiko K. Tub/Shower Yumiko - Locomotion L. Walk/Wheelchair (B) modA M. Stairs ADNO - Communication N. Comprehension (B) Michael O. Expression (B) Michael - Social Cognition P. Social Interaction Michael Q. Problem Solving Michael R. Memory Michael - Endurance Fair - Balance Fair - Safety Awareness Poor CURRENT FUNC. DEFICITS: Balance, Endurance, Safety Awareness, Transfers Control, Locomotion, and Self-Care SIGNATURE PANEL: (CDT)
--- NOTE | 2018-03-16 01:17 | FAST ---
SHIFT START DATE/TIME: 03/15/2018 19:00 (CDT) SHIFT END DATE/TIME: 03/16/2018 07:00 (CDT) NAME VINCE [place] DATE OF : 1945 DATE OF ADMISSION: 03/11/2018 14:49 (CDT) PHONE: AGE: 73 SSN# [id number] GENDER: Female ENCOUNTER PHYSICIAN: Dr. Richi Fitzgerald M.D. ADMISSION DIAGNOSIS: - Orthopaedic Disorders 08 - Other Orthopaedic (08.9) right hip dislocation. EATING: Activity did not occur on this shift EATING - SCORE: 0-UNK GROOMING: Wash, rinse, and dry hands GROOMING - STEP 1: Does the patient require assistance when grooming? Yes. GROOMING - STEP 2: Does the patient require the assistance of a helper? Yes. GROOMING - STEP 3: How much assistance does the patient require from the helper? Cuing, coaxing, instructions, or encour agement for completion of grooming GROOMING - SCORE: 5-SUP BATHING: Activity did not occur on this shift BATHING - SCORE: 0-UNK DRESSING - UPPER BODY: Patient is not dressing in public clothing ARTICLES SCORE Total number of steps: 0 DRESSING - UPPER BODY - SCORE: 0-UNK DRESSING - LOWER BODY: Patient is not dressing in public clothing ARTICLES SCORE Total number of steps: 0 DRESSING - LOWER BODY - SCORE: 0-UNK TOILETING: TOILETING - STEP 1: Does the patient require assistance with toileting? Yes. TOILETING - STEP 2: Does the patient require the assistance of a helper? Yes. TOILETING - STEP 3: How much assistance does the patient require from the helper? Hands-on assistance from the helper TOILETING - STEP 4: Of the 3 tasks: 1) Adjusting clothing prior to use, 2) Cleansing of perineal area, 3) Adjusting clot corrine after use; How many tasks does the patient perform WITHOUT assistance of the helper? Three tasks with steadying assistance from the helper TOILETING - SCORE: 4-MIN BLADDER MANAGEMENT: Towner removes incontinent device (Depends, pull ups, etc.); cleans the patient after accident / inco ntinent episode; and, applies new incontinent device. BLADDER MANAGEMENT - SCORE: 1-DEP BLADDER MANAGEMENT - FREQUENCY OF ACCIDENTS: BLADDER MANAGEMENT(FA) - STEP 1: How many accidents has the patient had during the current shift? 2 BOWEL MANAGEMENT: Activity did not occur on this shift BOWEL MANAGEMENT - SCORE: 7-IND TRANSFERS: BED, CHAIR, WHEELCHAIR: TRANSFERS: BED, CHAIR, WHEELCHAIR - STEP 1: Does the patient require assistance with bed, chair, or wheelchair transfers? Yes. TRANSFERS: BED, CHAIR, WHEELCHAIR - STEP 2: Does the patient require the assistance of a helper? Yes. TRANSFERS: BED, CHAIR, WHEELCHAIR - STEP 3: How much assistance does the patient require from the helper? Steadying/guiding assistance TRANSFERS: BED, CHAIR, WHEELCHAIR - SCORE: 4-MIN TRANSFERS: TOILET: TRANSFERS: TOILET - STEP 1: Does the patient require assistance with toilet transfers? Yes. TRANSFERS: TOILET - STEP 2: Does the patient require the assistance of a helper? Yes. TRANSFERS: TOILET - STEP 3: How much assistance does the patient require from the helper? Patient performs half or more of the tr ansferring tasks TRANSFERS: TOILET - STEP 4: Does the patient need only incidental help such as contact guard or steadying during toilet transfer? Yes. TRANSFERS: TOILET - SCORE: 4-MIN TRANSFERS: SHOWER: Activity did not occur on this shift TRANSFERS: SHOWER - SCORE: 0-UNK TRANSFERS: TUB: Activity did not occur on this shift TRANSFERS: TUB - SCORE: 0-UNK LOCOMOTION: WALK: Activity did not occur on this shift LOCOMOTION: WALK - SCORE: 0-UNK LOCOMOTION: WHEELCHAIR: Activity did not occur on this shift LOCOMOTION: WHEELCHAIR - SCORE: 0-UNK COMPREHENSION: COMPREHENSION: TYPE: Both COMPREHENSION - STEP 1: Does the patient require help to understand complex and abstract ideas (such as current events, finan renea, discharge planning, medical issues, relationships, etc)? No. COMPREHENSION - STEP 2: Does the patient need extra time, require an assistive device (such as glasses for visual comprehensi on or a hearing aid for auditory comprehension) or does s/he have mild difficulty understanding compl ex and abstract information? Yes. COMPREHENSION - SCORE: 6-JAYDE EXPRESSION EXPRESSION: TYPE: Both EXPRESSION - STEP 1: Does the patient require help expressing complex and abstract ideas (such as current events, finances , discharge planning, medical issues, relationships, etc)? No. EXPRESSION - STEP 2: Does the patient need extra time, require an assistive device (such as augmentive communication syste m or a communication board), OR does s/he have mild difficulty expressing complex and abstract ideas (including mild dysarthria or mild word-find problems)? No. EXPRESSION - SCORE: 7-IND SOCIAL INTERACTION: SOCIAL INTERACTION - STEP 1: Does the patient require a helper to interact with others in social and therapeutic situations? No. SOCIAL INTERACTION - STEP 2: Does the patient need extra time in social situations, OR does s/he interact with staff, other patien ts, and family members ONLY in structured environments, OR does s/he require medication for social in teraction? Yes, patient requires medication for social interaction SOCIAL INTERACTION - SCORE: 6-JADYE PROBLEM SOLVING: PROBLEM SOLVING - STEP 1: Does the patient need help to solve complex problems such as managing a checking account or confronti ng interpersonal problems? No. PROBLEM SOLVING - STEP 2: Does the patient require extra time to make decisions or solve problems, OR does s/he have slight dif ficulty reading, initiating, or self-correcting in unfamiliar situations? Yes, patient needs extra ti me. PROBLEM SOLVING - SCORE: 6-JAYDE MEMORY: MEMORY - STEP 1: Does the patient need help to remember frequently encountered people, daily routines, and executing r equests? No. MEMORY - STEP 2: Does the patient have slight difficulty recognizing frequently encountered people, daily routines, or executing requests without the need for repetition or using self-initiated or environmental cues to remember? Yes. MEMORY - SCORE: 6-JAYDE SIGNATURE PANEL: The following modified sections: Eating - Score, Grooming - Score, Dressing - Upper Body - Score, Salomon ssing - Lower Body - Score, Toileting - Score, Bladder Management - Score, Bowel Management - Score, Transfers: Bed, Chair, Wheelchair - Score, Transfers: Toilet - Score, Transfers: Shower - Score, Javier sfers: Tub - Score, Locomotion: Walk - Score, Locomotion: Wheelchair - Score, Comprehension - Score, Expression - Score, Social Interaction - Score, Problem Solving - Score, Memory - Score were [electro nically] signed by Anu Orosco CNA on WedMar 16 2018 01:17:04 GMT-0500 (Central Daylight Time)
[2018-03-16] MEDS: ALBUTEROL INHALER 60 PUFF/8 GM IH SCH (07:41)
[2018-03-16] MEDS: LIDOCAINE 5% PATCH TOP SCH (07:42)
[2018-03-16] MEDS: CRANBERRY FRUIT EXTRACT 200 MG CAP PO SCH ×2 (07:43→19:52)
[2018-03-16] MEDS: FERROUS SULFATE 325 MG TAB PO SCH (07:43)
[2018-03-16] MEDS: CIPROFLOXACIN HCL 500 MG TAB PO SCH (07:43)
[2018-03-16] MEDS: APIXABAN 2.5 MG TABLET PO SCH ×2 (07:43→19:52)
[2018-03-16] MEDS: MAGNESIUM OXIDE 400 MG TAB PO SCH ×2 (07:43→19:54)
[2018-03-16] MEDS: FLUOXETINE 20 MG CAP PO SCH (07:43)
[2018-03-16] MEDS: GABAPENTIN 300 MG CAP PO SCH ×2 (07:43→19:52)
[2018-03-16] MEDS: FE SULF/FA/VIT B COMP & C TAB PO SCH (07:43)
[2018-03-16] MEDS: HOME MED 1 EA UNK IH SCH (07:44)
[2018-03-16] MEDS: predniSONE 10 MG TAB PO SCH (07:44)
[2018-03-16] MEDS: AMLODIPINE 5 MG TAB PO SCH (07:44)
[2018-03-16] MEDS: PROMOD 30 ML DOSE PO SCH ×2 (07:45→19:52)
[2018-03-16] MEDS: GUAIFENESIN/DM 5 ML UCUP PO PRN ×2 (10:51→19:52)
[2018-03-16] MEDS: OXYCODONE HCL 5 MG TAB PO PRN ×2 (11:09→19:54)
--- NOTE | 2018-03-16 11:38 | FAST ---
SHIFT START DATE/TIME: 03/16/2018 07:00 (CDT) SHIFT END DATE/TIME: 03/16/2018 19:00 (CDT) NAME VINCE [place] DATE OF : 1945 DATE OF ADMISSION: 03/11/2018 14:49 (CDT) PHONE: AGE: 73 SSN# [id number] GENDER: Female ENCOUNTER PHYSICIAN: Dr. Richi Fitzgerald M.D. ADMISSION DIAGNOSIS: - Orthopaedic Disorders 08 - Other Orthopaedic (08.9) right hip dislocation. EATING: EATING - STEP 1: Does the patient require assistance when eating? Yes. EATING - STEP 2: Does the patient require the assistance of a helper? No, patient only requires an assistive device, O R s/he takes more than reasonable time to eat, OR there is a safety concern, OR s/he requires modifie d food consistency EATING - SCORE: 6-JAYDE GROOMING: Comb/brush hair Oral care GROOMING - STEP 1: Does the patient require assistance when grooming? Yes. GROOMING - STEP 2: Does the patient require the assistance of a helper? Yes. GROOMING - STEP 3: How much assistance does the patient require from the helper? Cuing, coaxing, instructions, or encour agement for completion of grooming GROOMING - SCORE: 5-SUP BATHING: Activity did not occur on this shift BATHING - SCORE: 0-UNK DRESSING - UPPER BODY: Activity did not occur on this shift ARTICLES SCORE Total number of steps: 0 DRESSING - UPPER BODY - SCORE: 0-UNK DRESSING - LOWER BODY: Activity did not occur on this shift ARTICLES SCORE Total number of steps: 0 DRESSING - LOWER BODY - SCORE: 0-UNK TOILETING: TOILETING - STEP 1: Does the patient require assistance with toileting? Yes. TOILETING - STEP 2: Does the patient require the assistance of a helper? Yes. TOILETING - STEP 3: How much assistance does the patient require from the helper? Hands-on assistance from the helper TOILETING - STEP 4: Of the 3 tasks: 1) Adjusting clothing prior to use, 2) Cleansing of perineal area, 3) Adjusting clot corrine after use; How many tasks does the patient perform WITHOUT assistance of the helper? Three tasks with steadying assistance from the helper TOILETING - SCORE: 4-MIN BLADDER MANAGEMENT: BLADDER MANAGEMENT - STEP 1: Does the patient control the bladder completely and intentionally without equipment or devices or med ications, and is always continent? No. BLADDER MANAGEMENT - STEP 2: Does the patient require the assistance of a helper? No, patient requires and independently uses an a ssistive device, such as a urinal, bedpan, bedside commode, catheter, absorbent pad, or collecting de vice BLADDER MANAGEMENT - SCORE: 6-JAYDE BOWEL MANAGEMENT: Activity did not occur on this shift BOWEL MANAGEMENT - SCORE: 7-IND TRANSFERS: BED, CHAIR, WHEELCHAIR: TRANSFERS: BED, CHAIR, WHEELCHAIR - STEP 1: Does the patient require assistance with bed, chair, or wheelchair transfers? Yes. TRANSFERS: BED, CHAIR, WHEELCHAIR - STEP 2: Does the patient require the assistance of a helper? Yes. TRANSFERS: BED, CHAIR, WHEELCHAIR - STEP 3: How much assistance does the patient require from the helper? Steadying/guiding assistance TRANSFERS: BED, CHAIR, WHEELCHAIR - SCORE: 4-MIN TRANSFERS: TOILET: TRANSFERS: TOILET - STEP 1: Does the patient require assistance with toilet transfers? Yes. TRANSFERS: TOILET - STEP 2: Does the patient require the assistance of a helper? Yes. TRANSFERS: TOILET - STEP 3: How much assistance does the patient require from the helper? Patient performs half or more of the tr ansferring tasks TRANSFERS: TOILET - STEP 4: Does the patient need only incidental help such as contact guard or steadying during toilet transfer? Yes. TRANSFERS: TOILET - SCORE: 4-MIN TRANSFERS: SHOWER: Activity did not occur on this shift TRANSFERS: SHOWER - SCORE: 0-UNK TRANSFERS: TUB: Activity did not occur on this shift TRANSFERS: TUB - SCORE: 0-UNK LOCOMOTION: WALK: Activity did not occur on this shift LOCOMOTION: WALK - SCORE: 0-UNK LOCOMOTION: WHEELCHAIR: Activity did not occur on this shift LOCOMOTION: WHEELCHAIR - SCORE: 0-UNK COMPREHENSION: COMPREHENSION: TYPE: Both COMPREHENSION - STEP 1: Does the patient require help to understand complex and abstract ideas (such as current events, finan renea, discharge planning, medical issues, relationships, etc)? Yes. COMPREHENSION - STEP 2: Does the patient require help to understand questions or statements about basic needs or ideas (such as hunger, thirst, sleep, safety, daily schedule, room location, or discomfort) half or more of the t joon? No. COMPREHENSION - STEP 3: How often does the patient need help to understand directions and conversation about basic needs? Les s than 10% of the time COMPREHENSION - SCORE: 5-SUP EXPRESSION EXPRESSION: TYPE: Both EXPRESSION - STEP 1: Does the patient require help expressing complex and abstract ideas (such as current events, finances , discharge planning, medical issues, relationships, etc)? Yes. EXPRESSION - STEP 2: Does the patient require help to express basic necessities or ideas (such as hunger, thirst, sleep, s afety, daily schedule, room location, or discomfort) half or more of the time? No. EXPRESSION - STEP 3: How often does the patient need help to express directions and conversation about basic needs? Less t gallego 10% of the time EXPRESSION - SCORE: 5-SUP SOCIAL INTERACTION: SOCIAL INTERACTION - STEP 1: Does the patient require a helper to interact with others in social and therapeutic situations? Yes. SOCIAL INTERACTION - STEP 2: Does the patient interact appropriately half or more of the time? Yes. SOCIAL INTERACTION - STEP 3: How often does the patient need help to interact appropriately? Less than 10% of the time SOCIAL INTERACTION - SCORE: 5-SUP PROBLEM SOLVING: PROBLEM SOLVING - STEP 1: Does the patient need help to solve complex problems such as managing a checking account or confronti ng interpersonal problems? Yes. PROBLEM SOLVING - STEP 2: Does the patient solve basic routine problems half or more of the time? Yes. PROBLEM SOLVING - STEP 3: How often does the patient need help to solve basic routine problems? Less than 10% of the time PROBLEM SOLVING - SCORE: 5-SUP MEMORY: MEMORY - STEP 1: Does the patient need help to remember frequently encountered people, daily routines, and executing r equests? Yes. MEMORY - STEP 2: How often does the patient need help to remember frequently encountered people, daily routines, and e xecuting requests? Less than 10% of the time MEMORY - SCORE: 5-SUP SIGNATURE PANEL: The following modified sections: Eating - Score, Grooming - Score, Bathing - Score, Dressing - Upper Body - Score, Dressing - Lower Body - Score, Toileting - Score, Bladder Management - Score, Bowel Man agement - Score, Transfers: Bed, Chair, Wheelchair - Score, Transfers: Toilet - Score, Transfers: Pepper wer - Score, Transfers: Tub - Score, Locomotion: Walk - Score, Locomotion: Wheelchair - Score, Compre hension - Score, Expression - Score, Social Interaction - Score, Problem Solving - Score, Memory - Sc ore were [electronically] signed by Luis Banks on WedMar 16 2018 11:37:51 GMT-0500 (Central Daylight Time)
--- NOTE | 2018-03-16 16:09 | FAST ---
ENCOUNTER DATE AND TIME: 03/16/2018 08:00 (CDT) NAME VINCE [place] DATE OF : 1945 DATE OF ADMISSION: 03/11/2018 14:49 (CDT) PHONE: AGE: 73 SSN# [id number] GENDER: Female ENCOUNTER PHYSICIAN: Dr. Richi Fitzgerald M.D. ADMISSION DIAGNOSIS: - Orthopaedic Disorders 08 - Other Orthopaedic (08.9) right hip dislocation. EATING: Activity did not occur on this shift EATING - SCORE: 0-UNK GROOMING: Activity did not occur on this shift GROOMING - SCORE: 0-UNK BATHING: Activity did not occur on this shift BATHING - SCORE: 0-UNK DRESSING - UPPER BODY: Activity did not occur on this shift Patient is not dressing in public clothing ARTICLES SCORE Total number of steps: 0 DRESSING - UPPER BODY - SCORE: 0-UNK DRESSING - LOWER BODY: Activity did not occur on this shift Patient is not dressing in public clothing ARTICLES SCORE Total number of steps: 0 DRESSING - LOWER BODY - SCORE: 0-UNK TOILETING: Activity did not occur on this shift TOILETING - SCORE: 0-UNK BLADDER MANAGEMENT: Activity did not occur on this shift BLADDER MANAGEMENT - SCORE: 7-IND BOWEL MANAGEMENT: Activity did not occur on this shift BOWEL MANAGEMENT - SCORE: 7-IND TRANSFERS: BED, CHAIR, WHEELCHAIR: TRANSFERS: BED, CHAIR, WHEELCHAIR - STEP 1: Does the patient require assistance with bed, chair, or wheelchair transfers? Yes. TRANSFERS: BED, CHAIR, WHEELCHAIR - STEP 2: Does the patient require the assistance of a helper? Yes. TRANSFERS: BED, CHAIR, WHEELCHAIR - STEP 3: How much assistance does the patient require from the helper? Only supervision TRANSFERS: BED, CHAIR, WHEELCHAIR - SCORE: 5-SUP TRANSFERS: TOILET: Activity did not occur on this shift TRANSFERS: TOILET - SCORE: 0-UNK TRANSFERS: SHOWER: Activity did not occur on this shift TRANSFERS: SHOWER - SCORE: 0-UNK TRANSFERS: TUB: Activity did not occur on this shift TRANSFERS: TUB - SCORE: 0-UNK LOCOMOTION: WALK: LOCOMOTION: WALK - STEP 1: Does the patient need help to walk 150 feet? Yes. LOCOMOTION: WALK - STEP 2: How much assistance does the patient require to walk a minimum of 150 feet? Only supervision, cuing, or coaxing LOCOMOTION: WALK - SCORE: 5-SUP LOCOMOTION: WHEELCHAIR: Activity did not occur on this shift LOCOMOTION: WHEELCHAIR - SCORE: 0-UNK LOCOMOTION: STAIRS: Activity did not occur on this shift LOCOMOTION: STAIRS - SCORE: 0-UNK COMPREHENSION: COMPREHENSION - SCORE: 0-UNK EXPRESSION EXPRESSION - SCORE: 0-UNK SOCIAL INTERACTION: SOCIAL INTERACTION - SCORE: 0-UNK PROBLEM SOLVING: PROBLEM SOLVING - SCORE: 0-UNK MEMORY: MEMORY - SCORE: 0-UNK SIGNATURE PANEL: The following modified sections: Transfers: Bed, Chair, Wheelchair - Score, Transfers: Toilet - Score , Locomotion: Walk - Score, Locomotion: Wheelchair - Score, Locomotion: Stairs - Score were [electron ically] signed by Chris Whatley PT on WedMar 16 2018 16:08:28 GMT-0500 (Central Daylight Time)
--- NOTE | 2018-03-16 18:54 | R.PN ---
ENCOUNTER DATE AND TIME: 03/16/2018 18:51 (CDT) NAME VINCE [place] DATE OF : 1945 DATE OF ADMISSION: 03/11/2018 14:49 (CDT) right hip dislocationCHIEF COMPLAINT: Right hip dislocation SUBJECTIVE: Pt denied any Shortness of Breath. Pt denied any depression. Chest x-ray from 03-13-18 due to upper airway rhonchi shows no acute processes. EKG due to chest disco mfort done 03-14-18 is normal. Improved lower back pain after ambulating. Gabapentin dosage was increased, oxycodone was given. Lumb ar spine x-ray show no acute findings compared to 03-10-18. DJD noted. Ambulated 250' with rolling walker and 750' with rollator with standby assistance. VITAL SIGNS Temperature: 97.4 F SBP/DBP: 114/53 Pulse: 73 Resp: 16 MEDICATION ALLERGIES: penicillins SULFA ENVIRONMENTAL ALLERGIES: - Substance Allergies None Known - Other Allergies None Known NURSING: - Shower allowing shower - Skin care per protocol PRECAUTIONS: - Weight Bearing Precaution WBAT right LE ACTIVITIES OOB only with supervision THERAPIES: - Occupational Therapy Evaluate and Treat. - Physical Therapy Evaluate and Treat. PHYSICAL EXAM - Gen Alert and awake Lying in bed No apparent distress Oriented to: person, time, and place - Skin No skin breakdown. Normacephalic - Eyes No abnormalities - ENMT No abnormalities - Neck No abnormalities - CVS RRR - Chest Clear - Abd Soft - GI Non distended No abnormalities - No abnormalities - Ext Mild bilateral lower extremity edema. - MSK Unremarkable - Neuro 4/5 strength bilaterally lower extremities. - Psych No abnormalities ASSESSMENT: Pt. is a 73 yo Right-handed white female.On 03/04/2018 she was admitted to [facility] with diagnosis right hip dislocation.Her impairment category is Orthopaedic Disorders 08 - Ot her Orthopaedic (08.9).Pre-morbidly, Pt. was independent/mod-I in Self-Care, Sphincter Control, Trans fers Control, Communication, Social Cognition, and Locomotion; and she had good Sphincter Control.Cur rently, she has deficits of Balance, Endurance, Safety Awareness, Transfers Control, Locomotion, and Self-Care.Pt. is now referred to [facility] for acute in-patient rehabilitatio n in order to maximize patient's functional independence in activities of daily living, strength, ROM , and mobility.- Rehab Goal Patient has realistic goal of being discharged at assistance level 6-Michael to reside at Home with Fam larry/Relatives. MDM/PLAN: - Physical Therapy Decreased range of motion - to improve, our physical therapists will perform initial evaluation of p t's status upon admission and devise an individualized program for increasing patient's Range of Emmanuel on. Gait dysfunction - to improve, our physical therapists will perform initial evaluation of pt's statu s upon admission and devise an individualized program for Gait Training, and Wheel Chair mobility Inability to transfer - to improve, our physical therapists will perform initial evaluation of pt's status upon admission and devise an individualized program for Bed mobility Need for home safety evaluation - to improve, our physical therapists will perform initial evaluatio n of pt's status upon admission and devise an individualized program for Home Evaluation Need in caregiver upon discharge - to improve, our physical therapists will perform initial evaluati on of pt's status upon admission and devise an individualized program for Caregiver Training New precaution - to improve, our physical therapists will perform initial evaluation of pt's status upon admission and devise an individualized program for Patient precaution education Edema - to improve, our physical therapists will perform initial evaluation of pt's status upon admi ssion and devise an individualized program for Elevation Training, and Lymphedema Therapy Poor balance - to improve, our physical therapists will perform initial evaluation of pt's status up on admission and devise an individualized program for Balance Training Poor endurance - to improve, our physical therapists will perform initial evaluation of pt's status upon admission and devise an individualized program for Endurance Training Weakness - to improve, our physical therapists will perform initial evaluation of pt's status upon a dmission and devise an individualized program for Aquatic Therapy, Neuromuscular Reeducation, and Str engthening Achieving independence - to improve, our physical therapists will perform initial evaluation of pt's status upon admission and devise an individualized program for Community Reintegration Activities - Occupational Therapy ADL deficits - to improve, our occupation therapists will perform initial evaluation of pt's status upon admission and devise an individualized program for Bathing, Bed mobility, Community Reintegratio n, Cooking, Dressing, Eating, Fine Motor Skills, Grooming, Homemaking, Kitchen Mobility, Laundry, Pat ient Education, Safety Awareness, Splinting - Positioning, Transfers(Toilet, Tub, Shower), and Wheel Chair Management Need for urgent care - to improve, our occupation therapists will perform initial evaluation of pt's status upon admission and devise an individualized program for Caregiver Training Weakness - to improve, our occupation therapists will perform initial evaluation of pt's status upon admission and devise an individualized program for Aquatic Therapy, Balance, Endurance, UE ROM, and UE strengthening - Diet Type Continue Regular - Diet - Liquid Texture Continue Regular - Tube Feed Continue N/A - Weight Bearing Precaution WBAT right LE - Skin care per protocol - Diet - Solid Texture Continue Regular - Shower allowing shower FUNCTIONAL STATUS: UPDATED AT WEEKLY TEAM CONFERENCE - Bladder Same accident frequency: 7-Ind - No accidents in the past 7 days - Bowel Same accident frequency: 7-Ind - No accidents in the past 7 days - Walking Same score based on distance walked: 0(N/A) - Wheelchair Same score based on distance traveled: 0(N/A) FUNCTIONAL STATUS: - Self-Care A. Eating Ind B. Grooming sup C. Bathing Yumiko D. Dressing - Upper sup E. Dressing - Lower modA F. Toileting modA - Sphincter Control G: Bladder control Ind H: Bowel control Ind - Transfers Control I. Bed/Chair/Wheelchair Yumiko J. Toilet Yumiko K. Tub/Shower Yumiko - Locomotion L. Walk/Wheelchair (B) modA M. Stairs ADNO - Communication N. Comprehension (B) Michael O. Expression (B) Michael - Social Cognition P. Social Interaction Michael Q. Problem Solving Michael R. Memory Michael - Endurance Fair - Balance Fair - Safety Awareness Poor CURRENT FUNC. DEFICITS: Balance, Endurance, Safety Awareness, Transfers Control, Locomotion, and Self-Care SIGNATURE PANEL: (CDT)
[2018-03-16] MEDS: CEFUROXIME 250 MG TAB PO SCH (19:54)
[2018-03-16] MEDS: CALCIUM CARBONATE CHEW 500MG TAB PO PRN (19:55)
[2018-03-16] MEDS: LORAZEPAM 0.5 MG TABLET PO SCH (20:00)
[2018-03-16] MEDS: ATORVASTATIN 10 MG TAB PO SCH (20:00)
[2018-03-17 06:33] LABS: Absolute Lymphocytes (CBC) 2.7 K/uL (0.7-4.9); Absolute Monocytes 0.6 K/uL (0.1-1.3); Absolute Neutrophil 6.3 K/uL (1.8-8.0); Basophils % 0.9 % (0-1.3); Eosinophils % 3.8 % (0-4.4); MCH 26.8 pg (27.0-35.0); MCV 82.2 fL (80-100); MPV 8.3 fL (7.6-11.3); Monocytes % 5.6 % (3.3-12.3); RBC Red Blood Cell Count 3.89 M/uL (3.86-4.86)
[2018-03-17 06:51] LABS: Albumin 2.8 g/dL (3.4-5.0); Magnesium 2.3 mg/dL (1.8-2.4); Potassium 4.8 mmol/L (3.5-5.1); Prealbumin 19.6 mg/dL (20-40)
[2018-03-17] MEDS: HOME MED 1 EA UNK IH SCH (08:00)
[2018-03-17] MEDS: LIDOCAINE 5% PATCH TOP SCH (08:00)
[2018-03-17] MEDS: FLUOXETINE 20 MG CAP PO SCH (08:35)
[2018-03-17] MEDS: AMLODIPINE 5 MG TAB PO SCH (08:35)
[2018-03-17] MEDS: GABAPENTIN 300 MG CAP PO SCH ×2 (08:35→20:23)
[2018-03-17] MEDS: FERROUS SULFATE 325 MG TAB PO SCH (08:35)
[2018-03-17] MEDS: FE SULF/FA/VIT B COMP & C TAB PO SCH (08:35)
[2018-03-17] MEDS: CEFUROXIME 250 MG TAB PO SCH ×2 (08:35→20:23)
[2018-03-17] MEDS: CRANBERRY FRUIT EXTRACT 200 MG CAP PO SCH ×2 (08:35→20:24)
[2018-03-17] MEDS: predniSONE 10 MG TAB PO SCH (08:35)
[2018-03-17] MEDS: MAGNESIUM OXIDE 400 MG TAB PO SCH ×2 (08:35→20:23)
[2018-03-17] MEDS: APIXABAN 2.5 MG TABLET PO SCH ×2 (08:36→20:24)
[2018-03-17] MEDS: PROMOD 30 ML DOSE PO SCH ×2 (08:37→20:23)
[2018-03-17] MEDS: ALBUTEROL INHALER 60 PUFF/8 GM IH SCH (08:38)
[2018-03-17] MEDS: OXYCODONE HCL 5 MG TAB PO PRN ×2 (14:08→22:27)
--- NOTE | 2018-03-17 14:22 | FAST ---
ENCOUNTER DATE AND TIME: 03/17/2018 08:00 (CDT) NAME VINCE [place] DATE OF : 1945 DATE OF ADMISSION: 03/11/2018 14:49 (CDT) PHONE: AGE: 73 SSN# [id number] GENDER: Female ENCOUNTER PHYSICIAN: Dr. Richi Fitzgerald M.D. ADMISSION DIAGNOSIS: - Orthopaedic Disorders 08 - Other Orthopaedic (08.9) right hip dislocation. EATING: Activity did not occur on this shift EATING - SCORE: 0-UNK GROOMING: Activity did not occur on this shift GROOMING - SCORE: 0-UNK BATHING: Activity did not occur on this shift BATHING - SCORE: 0-UNK DRESSING - UPPER BODY: Activity did not occur on this shift Patient is not dressing in public clothing ARTICLES SCORE Total number of steps: 0 DRESSING - UPPER BODY - SCORE: 0-UNK DRESSING - LOWER BODY: Activity did not occur on this shift Patient is not dressing in public clothing ARTICLES SCORE Total number of steps: 0 DRESSING - LOWER BODY - SCORE: 0-UNK TOILETING: Activity did not occur on this shift TOILETING - SCORE: 0-UNK BLADDER MANAGEMENT: Activity did not occur on this shift BLADDER MANAGEMENT - SCORE: 7-IND BOWEL MANAGEMENT: Activity did not occur on this shift BOWEL MANAGEMENT - SCORE: 7-IND TRANSFERS: BED, CHAIR, WHEELCHAIR: TRANSFERS: BED, CHAIR, WHEELCHAIR - STEP 1: Does the patient require assistance with bed, chair, or wheelchair transfers? Yes. TRANSFERS: BED, CHAIR, WHEELCHAIR - STEP 2: Does the patient require the assistance of a helper? No. Patient only requires an assistive device fo r bed, chair, wheelchair transfers such as a sliding board, grab bar, or brace, OR s/he takes more th an reasonable time, OR there is a safety concern when s/he performs the transfers TRANSFERS: BED, CHAIR, WHEELCHAIR - SCORE: 6-JAYDE TRANSFERS: TOILET: Activity did not occur on this shift TRANSFERS: TOILET - SCORE: 0-UNK TRANSFERS: SHOWER: Activity did not occur on this shift TRANSFERS: SHOWER - SCORE: 0-UNK TRANSFERS: TUB: Activity did not occur on this shift TRANSFERS: TUB - SCORE: 0-UNK LOCOMOTION: WALK: LOCOMOTION: WALK - STEP 1: Does the patient need help to walk 150 feet? No. LOCOMOTION: WALK - STEP 2: Does the patient need an assistive device (such as an orthosis, prosthesis, crutches, or walker) to g o 150 feet, OR does s/he take more than reasonable time, OR is there a concern for safety? Yes, the p atient needs an assistive device LOCOMOTION: WALK - SCORE: 6-JAYDE LOCOMOTION: WHEELCHAIR: Activity did not occur on this shift LOCOMOTION: WHEELCHAIR - SCORE: 0-UNK LOCOMOTION: STAIRS: LOCOMOTION: STAIRS - STEP 1: Does the patient need help to go up and down 12 to 14 stairs? Yes. LOCOMOTION: STAIRS - STEP 2: How much assistance does the patient need from the helper to go a minimum of 12 to 14 stairs? Only banda pervision, cuing, or coaxing LOCOMOTION: STAIRS - SCORE: 5-SUP COMPREHENSION: COMPREHENSION - SCORE: 0-UNK EXPRESSION EXPRESSION - SCORE: 0-UNK SOCIAL INTERACTION: SOCIAL INTERACTION - SCORE: 0-UNK PROBLEM SOLVING: PROBLEM SOLVING - SCORE: 0-UNK MEMORY: MEMORY - SCORE: 0-UNK SIGNATURE PANEL: The following modified sections: Transfers: Bed, Chair, Wheelchair - Score, Transfers: Toilet - Score , Locomotion: Walk - Score, Locomotion: Wheelchair - Score, Locomotion: Stairs - Score were [juanita moore] signed by Chris Whatley PT on WedMar 17 2018 14:21:21 GMT-0500 (Central Daylight Time)
--- NOTE | 2018-03-17 14:43 | FAST ---
SHIFT START DATE/TIME: 03/17/2018 07:00 (CDT) SHIFT END DATE/TIME: 03/17/2018 19:00 (CDT) NAME VINCE [place] DATE OF : 1945 DATE OF ADMISSION: 03/11/2018 14:49 (CDT) PHONE: AGE: 73 SSN# [id number] GENDER: Female ENCOUNTER PHYSICIAN: Dr. Richi Fitzgerald M.D. ADMISSION DIAGNOSIS: - Orthopaedic Disorders 08 - Other Orthopaedic (08.9) right hip dislocation. EATING: EATING - STEP 1: Does the patient require assistance when eating? Yes. EATING - STEP 2: Does the patient require the assistance of a helper? No, patient only requires an assistive device, O R s/he takes more than reasonable time to eat, OR there is a safety concern, OR s/he requires modifie d food consistency EATING - SCORE: 6-JAYDE GROOMING: Comb/brush hair Wash, rinse, and dry face GROOMING - STEP 1: Does the patient require assistance when grooming? Yes. GROOMING - STEP 2: Does the patient require the assistance of a helper? No. The patient only requires an assistive devic e, OR takes more than reasonable time to groom, OR there is a concern for safety as the patient groom s GROOMING - SCORE: 6-JAYDE BATHING: Activity did not occur on this shift BATHING - SCORE: 0-UNK DRESSING - UPPER BODY: T-shirt/pullover shirt (four steps) ARTICLES SCORE Total number of steps: 4 DRESSING - UPPER BODY - STEP 1: Does the patient require help when dressing above the waist? Yes. DRESSING - UPPER BODY - STEP 2: Does the patient require the assistance of a helper? No. Patient only requires an assistive device, s uch as a button hook, velcro, or retail pharmacy technician. OR s/he takes more than reasonable time as s/he dresses the upper body. OR there is a concern for safety when s/he dresses the upper body DRESSING - UPPER BODY - SCORE: 6-JAYDE DRESSING - LOWER BODY: Elastic waist pants (three steps) Underwear (three steps) ARTICLES SCORE Total number of steps: 6 DRESSING - LOWER BODY - STEP 1: Does the patient require help when dressing below the waist? Yes. DRESSING - LOWER BODY - STEP 2: Does the patient require the assistance of a helper? No. Patient requires an assistive device such as a retail pharmacy technician. OR s/he takes more than reasonable time as s/he dresses the lower body, OR there is a con cern for safety when s/he dresses the lower body DRESSING - LOWER BODY - SCORE: 6-JAYDE TOILETING: TOILETING - STEP 1: Does the patient require assistance with toileting? Yes. TOILETING - STEP 2: Does the patient require the assistance of a helper? Yes. TOILETING - STEP 3: How much assistance does the patient require from the helper? Only supervision TOILETING - SCORE: 5-SUP BLADDER MANAGEMENT: [place] removes incontinent device (Depends, pull ups, etc.); cleans the patient after accident / inco ntinent episode; and, applies new incontinent device. BLADDER MANAGEMENT - SCORE: 1-DEP BLADDER MANAGEMENT - FREQUENCY OF ACCIDENTS: BLADDER MANAGEMENT(FA) - STEP 1: How many accidents has the patient had during the current shift? 2 BOWEL MANAGEMENT: Activity did not occur on this shift BOWEL MANAGEMENT - SCORE: 7-IND BOWEL MANAGEMENT - FREQUENCY OF ACCIDENTS: BOWEL MANAGEMENT(FA) - STEP 1: How many accidents has the patient had during the current shift? 0 TRANSFERS: BED, CHAIR, WHEELCHAIR: TRANSFERS: BED, CHAIR, WHEELCHAIR - STEP 1: Does the patient require assistance with bed, chair, or wheelchair transfers? Yes. TRANSFERS: BED, CHAIR, WHEELCHAIR - STEP 2: Does the patient require the assistance of a helper? Yes. TRANSFERS: BED, CHAIR, WHEELCHAIR - STEP 3: How much assistance does the patient require from the helper? Steadying/guiding assistance TRANSFERS: BED, CHAIR, WHEELCHAIR - SCORE: 4-MIN TRANSFERS: TOILET: TRANSFERS: TOILET - STEP 1: Does the patient require assistance with toilet transfers? Yes. TRANSFERS: TOILET - STEP 2: Does the patient require the assistance of a helper? No. Patient only requires an assistive device banda ch as a grab bar or special seat, OR s/he takes more than reasonable time to perform toilet transfers , OR there is a safety concern when s/he performs toilet transfers. TRANSFERS: TOILET - SCORE: 6-JAYDE TRANSFERS: SHOWER: Activity did not occur on this shift TRANSFERS: SHOWER - SCORE: 0-UNK TRANSFERS: TUB: Activity did not occur on this shift TRANSFERS: TUB - SCORE: 0-UNK LOCOMOTION: WALK: Activity did not occur on this shift LOCOMOTION: WALK - SCORE: 0-UNK LOCOMOTION: WHEELCHAIR: Activity did not occur on this shift LOCOMOTION: WHEELCHAIR - SCORE: 0-UNK COMPREHENSION: COMPREHENSION: TYPE: Both COMPREHENSION - STEP 1: Does the patient require help to understand complex and abstract ideas (such as current events, finan renea, discharge planning, medical issues, relationships, etc)? Yes. COMPREHENSION - STEP 2: Does the patient require help to understand questions or statements about basic needs or ideas (such as hunger, thirst, sleep, safety, daily schedule, room location, or discomfort) half or more of the t joon? No. COMPREHENSION - STEP 3: How often does the patient need help to understand directions and conversation about basic needs? Les s than 10% of the time COMPREHENSION - SCORE: 5-SUP EXPRESSION EXPRESSION: TYPE: Both EXPRESSION - STEP 1: Does the patient require help expressing complex and abstract ideas (such as current events, finances , discharge planning, medical issues, relationships, etc)? Yes. EXPRESSION - STEP 2: Does the patient require help to express basic necessities or ideas (such as hunger, thirst, sleep, s afety, daily schedule, room location, or discomfort) half or more of the time? No. EXPRESSION - STEP 3: How often does the patient need help to express directions and conversation about basic needs? Less t gallego 10% of the time EXPRESSION - SCORE: 5-SUP SOCIAL INTERACTION: SOCIAL INTERACTION - STEP 1: Does the patient require a helper to interact with others in social and therapeutic situations? No. SOCIAL INTERACTION - STEP 2: Does the patient need extra time in social situations, OR does s/he interact with staff, other patien ts, and family members ONLY in structured environments, OR does s/he require medication for social in teraction? Yes, patient needs extra time SOCIAL INTERACTION - SCORE: 6-JAYDE PROBLEM SOLVING: PROBLEM SOLVING - STEP 1: Does the patient need help to solve complex problems such as managing a checking account or confronti ng interpersonal problems? Yes. PROBLEM SOLVING - STEP 2: Does the patient solve basic routine problems half or more of the time? Yes. PROBLEM SOLVING - STEP 3: How often does the patient need help to solve basic routine problems? Less than 10% of the time PROBLEM SOLVING - SCORE: 5-SUP MEMORY: MEMORY - STEP 1: Does the patient need help to remember frequently encountered people, daily routines, and executing r equests? Yes. MEMORY - STEP 2: How often does the patient need help to remember frequently encountered people, daily routines, and e xecuting requests? Less than 10% of the time MEMORY - SCORE: 5-SUP SIGNATURE PANEL: The following modified sections: Eating - Score, Grooming - Score, Bathing - Score, Dressing - Upper Body - Score, Dressing - Lower Body - Score, Toileting - Score, Bladder Management - Score, Bowel Man agement - Score, Transfers: Bed, Chair, Wheelchair - Score, Transfers: Toilet - Score, Transfers: Pepper wer - Score, Transfers: Tub - Score, Locomotion: Walk - Score, Locomotion: Wheelchair - Score, Compre hension - Score, Expression - Score, Social Interaction - Score, Problem Solving - Score, Memory - Sc ore were [electronically] signed by Chon AbreuNMoises on WedMar 17 2018 14:43:17 T-0500 (Centra l Daylight Time)
--- NOTE | 2018-03-17 18:35 | R.PN ---
ENCOUNTER DATE AND TIME: 03/17/2018 18:31 (CDT) NAME VINCE [place] DATE OF : 1945 DATE OF ADMISSION: 03/11/2018 14:49 (CDT) right hip dislocationCHIEF COMPLAINT: Right hip dislocation SUBJECTIVE: Pt denied any Shortness of Breath. Pt denied any depression. Chest x-ray from 03-13-18 due to upper airway rhonchi shows no acute processes. EKG due to chest disco mfort done 03-14-18 is normal. Improved lower back pain after ambulating. Gabapentin dosage was increased, oxycodone was given. Lumb ar spine x-ray show no acute findings compared to 03-10-18. DJD noted. Ambulated 1000' with rolling walker with modified independence. VITAL SIGNS Temperature: 97.2 F SBP/DBP: 124/58 Pulse: 71 Resp: 16 MEDICATION ALLERGIES: penicillins SULFA ENVIRONMENTAL ALLERGIES: - Substance Allergies None Known - Other Allergies None Known NURSING: - Shower allowing shower - Skin care per protocol PRECAUTIONS: - Weight Bearing Precaution WBAT right LE ACTIVITIES OOB only with supervision THERAPIES: - Occupational Therapy Evaluate and Treat. - Physical Therapy Evaluate and Treat. PHYSICAL EXAM - Gen Alert and awake Lying in bed No apparent distress Oriented to: person, time, and place - Skin No skin breakdown. Normacephalic - Eyes No abnormalities - ENMT No abnormalities - Neck No abnormalities - CVS RRR - Chest Clear - Abd Soft - GI Non distended No abnormalities - No abnormalities - Ext Mild bilateral lower extremity edema. - MSK Unremarkable - Neuro 4/5 strength bilaterally lower extremities. - Psych No abnormalities ASSESSMENT: Pt. is a 73 yo Right-handed white female.On 03/04/2018 she was admitted to [facility] with diagnosis right hip dislocation.Her impairment category is Orthopaedic Disorders 08 - Ot her Orthopaedic (08.9).Pre-morbidly, Pt. was independent/mod-I in Self-Care, Sphincter Control, Trans fers Control, Communication, Social Cognition, and Locomotion; and she had good Sphincter Control.Cur rently, she has deficits of Balance, Endurance, Safety Awareness, Transfers Control, Locomotion, and Self-Care.Pt. is now referred to [facility] for acute in-patient rehabilitatio n in order to maximize patient's functional independence in activities of daily living, strength, ROM , and mobility.- Rehab Goal Patient has realistic goal of being discharged at assistance level 6-Michael to reside at Home with Fam larry/Relatives. MDM/PLAN: - Physical Therapy Decreased range of motion - to improve, our physical therapists will perform initial evaluation of p t's status upon admission and devise an individualized program for increasing patient's Range of Emmanuel on. Gait dysfunction - to improve, our physical therapists will perform initial evaluation of pt's statu s upon admission and devise an individualized program for Gait Training, and Wheel Chair mobility Inability to transfer - to improve, our physical therapists will perform initial evaluation of pt's status upon admission and devise an individualized program for Bed mobility Need for home safety evaluation - to improve, our physical therapists will perform initial evaluatio n of pt's status upon admission and devise an individualized program for Home Evaluation Need in caregiver upon discharge - to improve, our physical therapists will perform initial evaluati on of pt's status upon admission and devise an individualized program for Caregiver Training New precaution - to improve, our physical therapists will perform initial evaluation of pt's status upon admission and devise an individualized program for Patient precaution education Edema - to improve, our physical therapists will perform initial evaluation of pt's status upon admi ssion and devise an individualized program for Elevation Training, and Lymphedema Therapy Poor balance - to improve, our physical therapists will perform initial evaluation of pt's status up on admission and devise an individualized program for Balance Training Poor endurance - to improve, our physical therapists will perform initial evaluation of pt's status upon admission and devise an individualized program for Endurance Training Weakness - to improve, our physical therapists will perform initial evaluation of pt's status upon a dmission and devise an individualized program for Aquatic Therapy, Neuromuscular Reeducation, and Str engthening Achieving independence - to improve, our physical therapists will perform initial evaluation of pt's status upon admission and devise an individualized program for Community Reintegration Activities - Occupational Therapy ADL deficits - to improve, our occupation therapists will perform initial evaluation of pt's status upon admission and devise an individualized program for Bathing, Bed mobility, Community Reintegratio n, Cooking, Dressing, Eating, Fine Motor Skills, Grooming, Homemaking, Kitchen Mobility, Laundry, Pat ient Education, Safety Awareness, Splinting - Positioning, Transfers(Toilet, Tub, Shower), and Wheel Chair Management Need for managed care specialist - to improve, our occupation therapists will perform initial evaluation of pt's status upon admission and devise an individualized program for Caregiver Training Weakness - to improve, our occupation therapists will perform initial evaluation of pt's status upon admission and devise an individualized program for Aquatic Therapy, Balance, Endurance, UE ROM, and UE strengthening - Diet Type Continue Regular - Diet - Liquid Texture Continue Regular - Tube Feed Continue N/A - Weight Bearing Precaution WBAT right LE - Skin care per protocol - Diet - Solid Texture Continue Regular - Shower allowing shower FUNCTIONAL STATUS: UPDATED AT WEEKLY TEAM CONFERENCE - Bladder Same accident frequency: 7-Ind - No accidents in the past 7 days - Bowel Same accident frequency: 7-Ind - No accidents in the past 7 days - Walking Same score based on distance walked: 0(N/A) - Wheelchair Same score based on distance traveled: 0(N/A) FUNCTIONAL STATUS: - Self-Care A. Eating Ind B. Grooming sup C. Bathing Yumiko D. Dressing - Upper sup E. Dressing - Lower modA F. Toileting modA - Sphincter Control G: Bladder control Ind H: Bowel control Ind - Transfers Control I. Bed/Chair/Wheelchair Yumiko J. Toilet Yumiko K. Tub/Shower Yumiko - Locomotion L. Walk/Wheelchair (B) modA M. Stairs ADNO - Communication N. Comprehension (B) Michael O. Expression (B) Michael - Social Cognition P. Social Interaction Michael Q. Problem Solving Michael R. Memory Michael - Endurance Fair - Balance Fair - Safety Awareness Poor CURRENT FUNC. DEFICITS: Balance, Endurance, Safety Awareness, Transfers Control, Locomotion, and Self-Care SIGNATURE PANEL: (CDT)
[2018-03-17] MEDS: ATORVASTATIN 10 MG TAB PO SCH (20:23)
[2018-03-17] MEDS: LORAZEPAM 0.5 MG TABLET PO SCH (20:24)
[2018-03-17] MEDS: ALBUTEROL 2.5 MG/3 ML NEB SOL NEB PRN (20:31)
[2018-03-17] MEDS: CALCIUM CARBONATE CHEW 500MG TAB PO PRN (21:07)
[2018-03-17] MEDS: GUAIFENESIN/DM 5 ML UCUP PO PRN (21:07)
--- NOTE | 2018-03-18 02:02 | FAST ---
SHIFT START DATE/TIME: 03/17/2018 19:00 (CDT) SHIFT END DATE/TIME: 03/18/2018 07:00 (CDT) NAME VINCE [place] DATE OF : 1945 DATE OF ADMISSION: 03/11/2018 14:49 (CDT) PHONE: AGE: 73 SSN# [id number] GENDER: Female ENCOUNTER PHYSICIAN: Dr. Richi Fitzgerald M.D. ADMISSION DIAGNOSIS: - Orthopaedic Disorders 08 - Other Orthopaedic (08.9) right hip dislocation. EATING: Activity did not occur on this shift EATING - SCORE: 0-UNK GROOMING: Wash, rinse, and dry hands GROOMING - STEP 1: Does the patient require assistance when grooming? Yes. GROOMING - STEP 2: Does the patient require the assistance of a helper? Yes. GROOMING - STEP 3: How much assistance does the patient require from the helper? Only prior equipment preparation/set up from the helper GROOMING - SCORE: 5-SUP BATHING: Activity did not occur on this shift BATHING - SCORE: 0-UNK DRESSING - UPPER BODY: Patient is not dressing in public clothing ARTICLES SCORE Total number of steps: 0 DRESSING - UPPER BODY - SCORE: 0-UNK DRESSING - LOWER BODY: Patient is not dressing in public clothing ARTICLES SCORE Total number of steps: 0 DRESSING - LOWER BODY - SCORE: 0-UNK TOILETING: TOILETING - STEP 1: Does the patient require assistance with toileting? Yes. TOILETING - STEP 2: Does the patient require the assistance of a helper? Yes. TOILETING - STEP 3: How much assistance does the patient require from the helper? Only supervision TOILETING - SCORE: 5-SUP BLADDER MANAGEMENT: [place] removes incontinent device (Depends, pull ups, etc.); cleans the patient after accident / inco ntinent episode; and, applies new incontinent device. BLADDER MANAGEMENT - SCORE: 1-DEP BLADDER MANAGEMENT - FREQUENCY OF ACCIDENTS: BLADDER MANAGEMENT(FA) - STEP 1: How many accidents has the patient had during the current shift? 1 BOWEL MANAGEMENT: Activity did not occur on this shift BOWEL MANAGEMENT - SCORE: 7-IND TRANSFERS: BED, CHAIR, WHEELCHAIR: TRANSFERS: BED, CHAIR, WHEELCHAIR - STEP 1: Does the patient require assistance with bed, chair, or wheelchair transfers? Yes. TRANSFERS: BED, CHAIR, WHEELCHAIR - STEP 2: Does the patient require the assistance of a helper? Yes. TRANSFERS: BED, CHAIR, WHEELCHAIR - STEP 3: How much assistance does the patient require from the helper? Only supervision TRANSFERS: BED, CHAIR, WHEELCHAIR - SCORE: 5-SUP TRANSFERS: TOILET: TRANSFERS: TOILET - STEP 1: Does the patient require assistance with toilet transfers? Yes. TRANSFERS: TOILET - STEP 2: Does the patient require the assistance of a helper? Yes. TRANSFERS: TOILET - STEP 3: How much assistance does the patient require from the helper? Only supervision, cuing, coaxing, OR he lp to set out transfer equipment or to lock brakes and/or lift foot rests TRANSFERS: TOILET - SCORE: 5-SUP TRANSFERS: SHOWER: Activity did not occur on this shift TRANSFERS: SHOWER - SCORE: 0-UNK TRANSFERS: TUB: Activity did not occur on this shift TRANSFERS: TUB - SCORE: 0-UNK LOCOMOTION: WALK: Activity did not occur on this shift LOCOMOTION: WALK - SCORE: 0-UNK LOCOMOTION: WHEELCHAIR: Activity did not occur on this shift LOCOMOTION: WHEELCHAIR - SCORE: 0-UNK COMPREHENSION: COMPREHENSION: TYPE: Both COMPREHENSION - STEP 1: Does the patient require help to understand complex and abstract ideas (such as current events, finan renea, discharge planning, medical issues, relationships, etc)? No. COMPREHENSION - STEP 2: Does the patient need extra time, require an assistive device (such as glasses for visual comprehensi on or a hearing aid for auditory comprehension) or does s/he have mild difficulty understanding compl ex and abstract information? Yes. COMPREHENSION - SCORE: 6-JAYDE EXPRESSION EXPRESSION: TYPE: Both EXPRESSION - STEP 1: Does the patient require help expressing complex and abstract ideas (such as current events, finances , discharge planning, medical issues, relationships, etc)? No. EXPRESSION - STEP 2: Does the patient need extra time, require an assistive device (such as augmentive communication syste m or a communication board), OR does s/he have mild difficulty expressing complex and abstract ideas (including mild dysarthria or mild word-find problems)? Yes. EXPRESSION - SCORE: 6-JAYDE SOCIAL INTERACTION: SOCIAL INTERACTION - STEP 1: Does the patient require a helper to interact with others in social and therapeutic situations? No. SOCIAL INTERACTION - STEP 2: Does the patient need extra time in social situations, OR does s/he interact with staff, other patien ts, and family members ONLY in structured environments, OR does s/he require medication for social in teraction? Yes, patient requires medication for social interaction SOCIAL INTERACTION - SCORE: 6-JAYDE PROBLEM SOLVING: PROBLEM SOLVING - STEP 1: Does the patient need help to solve complex problems such as managing a checking account or confronti ng interpersonal problems? No. PROBLEM SOLVING - STEP 2: Does the patient require extra time to make decisions or solve problems, OR does s/he have slight dif ficulty reading, initiating, or self-correcting in unfamiliar situations? Yes, patient needs extra ti me. PROBLEM SOLVING - SCORE: 6-JAYDE MEMORY: MEMORY - STEP 1: Does the patient need help to remember frequently encountered people, daily routines, and executing r equests? No. MEMORY - STEP 2: Does the patient have slight difficulty recognizing frequently encountered people, daily routines, or executing requests without the need for repetition or using self-initiated or environmental cues to remember? Yes. MEMORY - SCORE: 6-JAYDE SIGNATURE PANEL: The following modified sections: Eating - Score, Grooming - Score, Dressing - Upper Body - Score, Salomon ssing - Lower Body - Score, Toileting - Score, Bladder Management - Score, Bowel Management - Score, Transfers: Bed, Chair, Wheelchair - Score, Transfers: Toilet - Score, Transfers: Shower - Score, Javier sfers: Tub - Score, Locomotion: Walk - Score, Locomotion: Wheelchair - Score, Comprehension - Score, Expression - Score, Social Interaction - Score, Problem Solving - Score, Memory - Score were [electro nically] signed by Anu Orosco CNA on WedMar 18 2018 02:01:44 GMT-0500 (Central Daylight Time)
[2018-03-18] MEDS: LIDOCAINE 5% PATCH TOP SCH (08:00)
[2018-03-18] MEDS: HOME MED 1 EA UNK IH SCH (08:00)
[2018-03-18] MEDS: FLUOXETINE 20 MG CAP PO SCH (08:58)
[2018-03-18] MEDS: FE SULF/FA/VIT B COMP & C TAB PO SCH (08:58)
[2018-03-18] MEDS: MAGNESIUM OXIDE 400 MG TAB PO SCH (08:59)
[2018-03-18] MEDS: GABAPENTIN 300 MG CAP PO SCH ×2 (08:59→21:07)
[2018-03-18] MEDS: FERROUS SULFATE 325 MG TAB PO SCH (08:59)
[2018-03-18] MEDS: CEFUROXIME 250 MG TAB PO SCH ×2 (08:59→21:07)
[2018-03-18] MEDS: CRANBERRY FRUIT EXTRACT 200 MG CAP PO SCH ×2 (08:59→21:07)
[2018-03-18] MEDS: AMLODIPINE 5 MG TAB PO SCH (09:00)
[2018-03-18] MEDS: APIXABAN 2.5 MG TABLET PO SCH ×2 (09:00→21:07)
[2018-03-18] MEDS: predniSONE 10 MG TAB PO SCH (09:00)
[2018-03-18] MEDS: PROMOD 30 ML DOSE PO SCH ×2 (09:01→21:08)
[2018-03-18] MEDS: ALBUTEROL INHALER 60 PUFF/8 GM IH SCH (09:01)
--- NOTE | 2018-03-18 10:09 | P.RH.PN ---
Estimated Length of Stay: 13 Expected Discharge Date: 03/23/18 Discharge Disposition Plan: Home Family Support: Yes Vital Signs: Last Vital Signs Temp 97.2 F 03/18/18 06:35 Pulse 71 03/18/18 09:00 Resp 18 03/18/18 06:35 BP 128/60 03/18/18 09:00 Pulse Ox 96 03/18/18 06:35 Laboratory: Laboratory Last Values WBC 10.0 K/uL (4.3-10.9) D 03/17/18 05:53 RBC 3.89 M/uL (3.86-4.86) 03/17/18 05:53 Hgb 10.4 g/dL (12.0-15.0) L 03/17/18 05:53 Hct 32.0 % (36.0-45.0) L 03/17/18 05:53 MCV 82.2 fL (80-100) 03/17/18 05:53 MCH 26.8 pg (27.0-35.0) L 03/17/18 05:53 MCHC 32.6 g/dL (32.0-36.0) 03/17/18 05:53 RDW 15.3 % (12.1-15.2) H 03/17/18 05:53 Plt Count 444 K/uL (152-406) H D 03/17/18 05:53 MPV 8.3 fL (7.6-11.3) 03/17/18 05:53 Neutrophils % 62.7 % (41.7-73.7) 03/17/18 05:53 Lymphocytes % 27.0 % (15.3-44.8) 03/17/18 05:53 Monocytes % 5.6 % (3.3-12.3) 03/17/18 05:53 Eosinophils % 3.8 % (0-4.4) 03/17/18 05:53 Basophils % 0.9 % (0-1.3) 03/17/18 05:53 Absolute Neutrophils 6.3 K/uL (1.8-8.0) 03/17/18 05:53 Absolute Lymphocytes 2.7 K/uL (0.7-4.9) 03/17/18 05:53 Absolute Monocytes 0.6 K/uL (0.1-1.3) 03/17/18 05:53 Absolute Eosinophils 0.4 K/uL (0-0.5) 03/17/18 05:53 Absolute Basophils 0.1 K/uL (0-0.5) 03/17/18 05:53 pH 7.52 (7.35-7.45) H 03/13/18 14:15 pCO2 32.7 mmHG (35-45) L 03/13/18 14:15 pO2 92.7 mmHG (75-100) 03/13/18 14:15 HCO3 26.8 mmol/L (22-28) 03/13/18 14:15 Base Excess 3.9 mmol/L 03/13/18 14:15 Oxyhemoglobin 95.3 % (94-97) 03/13/18 14:15 ABG O2 Sat (Measured) 97.5 % (92-98.5) 03/13/18 14:15 ABG Carboxyhemoglobin 1.7 % (0-1.5) H 03/13/18 14:15 ABG Methemoglobin 0.6 % (0-1.5) 03/13/18 14:15 Other Total Hgb 9.9 g/dl (12-18) L 03/13/18 14:15 Inspired O2 21.0 % 03/13/18 14:15 Sodium 140 mmol/L (136-145) 03/17/18 05:53 Potassium 4.8 mmol/L (3.5-5.1) 03/17/18 05:53 Chloride 106 mmol/L (98-107) 03/17/18 05:53 Carbon Dioxide 28 mmol/L (21-32) 03/17/18 05:53 BUN 17 mg/dL (7-18) 03/17/18 05:53 Creatinine 1.00 mg/dL (0.55-1.3) 03/17/18 05:53 Estimated GFR 54 mL/min (=/>90) L 03/17/18 05:53 Glucose 99 mg/dL (74-106) 03/17/18 05:53 POC Glucose 106 mg/dl (65-120) 03/13/18 08:52 Calcium 9.1 mg/dL (8.5-10.1) 03/17/18 05:53 Magnesium 2.3 mg/dL (1.8-2.4) D 03/17/18 05:53 Albumin 2.8 g/dL (3.4-5.0) L 03/17/18 05:53 Prealbumin 19.6 mg/dL (20-40) L 03/17/18 05:53 Urine Color Yellow 03/13/18 07:20 Urine Appearance Cloudy 03/13/18 07:20 Urine pH 7.0 (5.0-7.0) 03/13/18 07:20 Ur Specific [place] 1.015 (1.005-1.030) 03/13/18 07:20 Urine Ketones Negative (NEG) 03/13/18 07:20 Urine Blood 1+ (NEG) H 03/13/18 07:20 Urine Nitrite Negative (NEG) 03/13/18 07:20 Urine Bilirubin Negative (NEG) 03/13/18 07:20 Urine Urobilinogen 2.0 mg/dL (0.2-1.0) H 03/13/18 07:20 Ur Leukocyte Esterase 3+ (NEG) H 03/13/18 07:20 Urine RBC 5-10 /HPF (NONE SEEN) H 03/13/18 07:20 Urine WBC 20-50 /HPF (<5) H 03/13/18 07:20 Ur Squamous Epith Cells 5-10 /HPF (NONE SEEN) H 03/13/18 07:20 Urine Bacteria 20-50 /HPF (<20) H 03/13/18 07:20 Urine Culture Reflexed Not needed 03/13/18 07:20 Urine Glucose Negative (NEG) 03/13/18 07:20 Urine Total Protein Negative (NEG) 03/13/18 07:20 Weight: 193 lb 12.8 oz Wound Present: No Closed Surgical Incision Present: No Negative Pressure Wound Therapy Present: No Physician Update: Her back pain has improved. She refused lidoderm patch and wants to us a heating pad. She is doing with physical and occupational therapy. She had mild difficulty wearing her back brace but she is close to becoming modified independent. Pain Issues: Lidoderm patch Daily. Oxycodone 5mg Q4H PRN Functional Improvement: pt demonstrated good progress toward functional goals. pt continues to demonstrate impulsiveness at times. Functional Improvement Occupational Therapy: pt can benifit with further therapy to address pt's UB strength and static standing for adl tasks. Cont to increase pt's safety awareness with following hip precautions with handouts and education using A/E and educate the pt on energy conservation techniques. cont to educate and train the pt on don/doffing hip abduction brace. Cont with the POC and the goals by the supervising OTR. Summary: Patient's care plan and care home goals have been reviewed and revised as necessary. Please see the Rehabilitation Signature page for all necessary signatures.
[2018-03-18] MEDS ORDERED: MECLIZINE HCL 12.5 MG TAB PO PRN (12:50)
[2018-03-18] MEDS: TRAMADOL HCL 50 MG TAB PO PRN (14:22)
--- NOTE | 2018-03-18 14:56 | FAST ---
SHIFT START DATE/TIME: 03/18/2018 07:00 (CDT) SHIFT END DATE/TIME: 03/18/2018 19:00 (CDT) NAME VINCE [place] DATE OF : 1945 DATE OF ADMISSION: 03/11/2018 14:49 (CDT) PHONE: AGE: 73 SSN# [id number] GENDER: Female ENCOUNTER PHYSICIAN: Dr. Richi Fitzgerald M.D. ADMISSION DIAGNOSIS: - Orthopaedic Disorders 08 - Other Orthopaedic (08.9) right hip dislocation. EATING: EATING - STEP 1: Does the patient require assistance when eating? No. EATING - SCORE: 7-IND GROOMING: GROOMING - STEP 1: Does the patient require assistance when grooming? No. GROOMING - SCORE: 7-IND BATHING: Activity did not occur on this shift BATHING - SCORE: 0-UNK DRESSING - UPPER BODY: T-shirt/pullover shirt (four steps) ARTICLES SCORE Total number of steps: 4 DRESSING - UPPER BODY - STEP 1: Does the patient require help when dressing above the waist? Yes. DRESSING - UPPER BODY - STEP 2: Does the patient require the assistance of a helper? No. Patient only requires an assistive device, s uch as a button hook, velcro, or power system engineer. OR s/he takes more than reasonable time as s/he dresses the upper body. OR there is a concern for safety when s/he dresses the upper body DRESSING - UPPER BODY - SCORE: 6-JAYDE DRESSING - LOWER BODY: Elastic waist pants (three steps) Sock - Left foot (one step) Sock - Right foot (one step) ARTICLES SCORE Total number of steps: 5 DRESSING - LOWER BODY - STEP 1: Does the patient require help when dressing below the waist? Yes. DRESSING - LOWER BODY - STEP 2: Does the patient require the assistance of a helper? No. Patient requires an assistive device such as a power system engineer. OR s/he takes more than reasonable time as s/he dresses the lower body, OR there is a con cern for safety when s/he dresses the lower body DRESSING - LOWER BODY - SCORE: 6-JAYDE TOILETING: TOILETING - STEP 1: Does the patient require assistance with toileting? No. TOILETING - SCORE: 7-IND BLADDER MANAGEMENT: BLADDER MANAGEMENT - STEP 1: Does the patient control the bladder completely and intentionally without equipment or devices or med ications, and is always continent? Yes. BLADDER MANAGEMENT - SCORE: 7-IND BLADDER MANAGEMENT - FREQUENCY OF ACCIDENTS: BLADDER MANAGEMENT(FA) - STEP 1: How many accidents has the patient had during the current shift? 0 BOWEL MANAGEMENT: BOWEL MANAGEMENT - STEP 1: Does the patient control bowels completely and intentionally without equipment devices or medications AND is always continent? Yes. BOWEL MANAGEMENT - SCORE: 7-IND BOWEL MANAGEMENT - FREQUENCY OF ACCIDENTS: BOWEL MANAGEMENT(FA) - STEP 1: How many accidents has the patient had during the current shift? 0 TRANSFERS: BED, CHAIR, WHEELCHAIR: TRANSFERS: BED, CHAIR, WHEELCHAIR - STEP 1: Does the patient require assistance with bed, chair, or wheelchair transfers? Yes. TRANSFERS: BED, CHAIR, WHEELCHAIR - STEP 2: Does the patient require the assistance of a helper? Yes. TRANSFERS: BED, CHAIR, WHEELCHAIR - STEP 3: How much assistance does the patient require from the helper? Only supervision TRANSFERS: BED, CHAIR, WHEELCHAIR - SCORE: 5-SUP TRANSFERS: TOILET: TRANSFERS: TOILET - STEP 1: Does the patient require assistance with toilet transfers? Yes. TRANSFERS: TOILET - STEP 2: Does the patient require the assistance of a helper? Yes. TRANSFERS: TOILET - STEP 3: How much assistance does the patient require from the helper? Only supervision, cuing, coaxing, OR he lp to set out transfer equipment or to lock brakes and/or lift foot rests TRANSFERS: TOILET - SCORE: 5-SUP TRANSFERS: SHOWER: Activity did not occur on this shift TRANSFERS: SHOWER - SCORE: 0-UNK TRANSFERS: TUB: Activity did not occur on this shift TRANSFERS: TUB - SCORE: 0-UNK LOCOMOTION: WALK: Activity did not occur on this shift LOCOMOTION: WALK - SCORE: 0-UNK LOCOMOTION: WHEELCHAIR: Activity did not occur on this shift LOCOMOTION: WHEELCHAIR - SCORE: 0-UNK COMPREHENSION: COMPREHENSION - SCORE: 0-UNK EXPRESSION EXPRESSION - SCORE: 0-UNK SOCIAL INTERACTION: SOCIAL INTERACTION - SCORE: 0-UNK PROBLEM SOLVING: PROBLEM SOLVING - SCORE: 0-UNK MEMORY: MEMORY - SCORE: 0-UNK SIGNATURE PANEL: The following modified sections: Eating - Score, Grooming - Score, Bathing - Score, Dressing - Upper Body - Score, Dressing - Lower Body - Score, Toileting - Score, Bladder Management - Score, Bowel Man agement - Score, Transfers: Bed, Chair, Wheelchair - Score, Transfers: Toilet - Score, Transfers: Pepper wer - Score, Transfers: Tub - Score, Locomotion: Walk - Score, Locomotion: Wheelchair - Score, Compre hension - Score, Expression - Score, Social Interaction - Score, Problem Solving - Score, Memory - Sc ore were [electronically] signed by Opal Washington CNA on WedMar 18 2018 14:54:46 T-0500 (Centra [place] Daylight Time)
[2018-03-18] MEDS: MAGNES/ALUMIN/SIMET 30ML UCUP PO PRN ×2 (15:52→22:54)
[2018-03-18] MEDS: LORAZEPAM 0.5 MG TABLET PO SCH (21:08)
[2018-03-18] MEDS: ATORVASTATIN 10 MG TAB PO SCH (21:08)
[2018-03-18] MEDS: PANTOPRAZOLE 40MG TABLET PO SCH (21:08)
[2018-03-18] MEDS: GUAIFENESIN/DM 5 ML UCUP PO PRN (21:15)
[2018-03-18] MEDS: MELATONIN 3 MG TABLET PO PRN (22:56)
--- NOTE | 2018-03-19 02:21 | FAST ---
SHIFT START DATE/TIME: 03/18/2018 19:00 (CDT) SHIFT END DATE/TIME: 03/19/2018 07:00 (CDT) NAME VINCE [place] DATE OF : 1945 DATE OF ADMISSION: 03/11/2018 14:49 (CDT) PHONE: AGE: 73 SSN# [id number] GENDER: Female ENCOUNTER PHYSICIAN: Dr. Richi Fitzgerald M.D. ADMISSION DIAGNOSIS: - Orthopaedic Disorders 08 - Other Orthopaedic (08.9) right hip dislocation. EATING: Activity did not occur on this shift EATING - SCORE: 0-UNK GROOMING: Wash, rinse, and dry face Wash, rinse, and dry hands GROOMING - STEP 1: Does the patient require assistance when grooming? Yes. GROOMING - STEP 2: Does the patient require the assistance of a helper? Yes. GROOMING - STEP 3: How much assistance does the patient require from the helper? Only prior equipment preparation/set up from the helper GROOMING - SCORE: 5-SUP BATHING: Activity did not occur on this shift BATHING - SCORE: 0-UNK DRESSING - UPPER BODY: Patient is not dressing in public clothing ARTICLES SCORE Total number of steps: 0 DRESSING - UPPER BODY - SCORE: 0-UNK DRESSING - LOWER BODY: Patient is not dressing in public clothing ARTICLES SCORE Total number of steps: 0 DRESSING - LOWER BODY - SCORE: 0-UNK TOILETING: TOILETING - STEP 1: Does the patient require assistance with toileting? Yes. TOILETING - STEP 2: Does the patient require the assistance of a helper? Yes. TOILETING - STEP 3: How much assistance does the patient require from the helper? Only supervision TOILETING - SCORE: 5-SUP BLADDER MANAGEMENT: [place] removes incontinent device (Depends, pull ups, etc.); cleans the patient after accident / inco ntinent episode; and, applies new incontinent device. BLADDER MANAGEMENT - SCORE: 1-DEP BLADDER MANAGEMENT - FREQUENCY OF ACCIDENTS: BLADDER MANAGEMENT(FA) - STEP 1: How many accidents has the patient had during the current shift? 1 BOWEL MANAGEMENT: Activity did not occur on this shift BOWEL MANAGEMENT - SCORE: 7-IND TRANSFERS: BED, CHAIR, WHEELCHAIR: TRANSFERS: BED, CHAIR, WHEELCHAIR - STEP 1: Does the patient require assistance with bed, chair, or wheelchair transfers? Yes. TRANSFERS: BED, CHAIR, WHEELCHAIR - STEP 2: Does the patient require the assistance of a helper? Yes. TRANSFERS: BED, CHAIR, WHEELCHAIR - STEP 3: How much assistance does the patient require from the helper? Steadying/guiding assistance TRANSFERS: BED, CHAIR, WHEELCHAIR - SCORE: 4-MIN TRANSFERS: TOILET: TRANSFERS: TOILET - STEP 1: Does the patient require assistance with toilet transfers? Yes. TRANSFERS: TOILET - STEP 2: Does the patient require the assistance of a helper? Yes. TRANSFERS: TOILET - STEP 3: How much assistance does the patient require from the helper? Patient performs half or more of the tr ansferring tasks TRANSFERS: TOILET - STEP 4: Does the patient need only incidental help such as contact guard or steadying during toilet transfer? Yes. TRANSFERS: TOILET - SCORE: 4-MIN TRANSFERS: SHOWER: Activity did not occur on this shift TRANSFERS: SHOWER - SCORE: 0-UNK TRANSFERS: TUB: Activity did not occur on this shift TRANSFERS: TUB - SCORE: 0-UNK LOCOMOTION: WALK: Activity did not occur on this shift LOCOMOTION: WALK - SCORE: 0-UNK LOCOMOTION: WHEELCHAIR: Activity did not occur on this shift LOCOMOTION: WHEELCHAIR - SCORE: 0-UNK COMPREHENSION: COMPREHENSION: TYPE: Both COMPREHENSION - STEP 1: Does the patient require help to understand complex and abstract ideas (such as current events, finan renea, discharge planning, medical issues, relationships, etc)? No. COMPREHENSION - STEP 2: Does the patient need extra time, require an assistive device (such as glasses for visual comprehensi on or a hearing aid for auditory comprehension) or does s/he have mild difficulty understanding compl ex and abstract information? Yes. COMPREHENSION - SCORE: 6-JAYDE EXPRESSION EXPRESSION: TYPE: Both EXPRESSION - STEP 1: Does the patient require help expressing complex and abstract ideas (such as current events, finances , discharge planning, medical issues, relationships, etc)? No. EXPRESSION - STEP 2: Does the patient need extra time, require an assistive device (such as augmentive communication syste m or a communication board), OR does s/he have mild difficulty expressing complex and abstract ideas (including mild dysarthria or mild word-find problems)? Yes. EXPRESSION - SCORE: 6-JAYDE SOCIAL INTERACTION: SOCIAL INTERACTION - STEP 1: Does the patient require a helper to interact with others in social and therapeutic situations? No. SOCIAL INTERACTION - STEP 2: Does the patient need extra time in social situations, OR does s/he interact with staff, other patien ts, and family members ONLY in structured environments, OR does s/he require medication for social in teraction? Yes, patient needs extra time SOCIAL INTERACTION - SCORE: 6-JAYDE PROBLEM SOLVING: PROBLEM SOLVING - STEP 1: Does the patient need help to solve complex problems such as managing a checking account or confronti ng interpersonal problems? No. PROBLEM SOLVING - STEP 2: Does the patient require extra time to make decisions or solve problems, OR does s/he have slight dif ficulty reading, initiating, or self-correcting in unfamiliar situations? Yes, patient needs extra ti me. PROBLEM SOLVING - SCORE: 6-JAYDE MEMORY: MEMORY - STEP 1: Does the patient need help to remember frequently encountered people, daily routines, and executing r equests? No. MEMORY - STEP 2: Does the patient have slight difficulty recognizing frequently encountered people, daily routines, or executing requests without the need for repetition or using self-initiated or environmental cues to remember? Yes. MEMORY - SCORE: 6-JAYDE
[2018-03-19] MEDS: FE SULF/FA/VIT B COMP & C TAB PO SCH (08:00)
[2018-03-19] MEDS: FERROUS SULFATE 325 MG TAB PO SCH (08:00)
[2018-03-19] MEDS: HOME MED 1 EA UNK IH SCH (08:00)
[2018-03-19] MEDS: PROMOD 30 ML DOSE PO SCH ×2 (08:00→20:00)
[2018-03-19] MEDS: GABAPENTIN 300 MG CAP PO SCH ×2 (08:56→21:00)
[2018-03-19] MEDS: predniSONE 10 MG TAB PO SCH (08:56)
[2018-03-19] MEDS: FLUOXETINE 20 MG CAP PO SCH (08:56)
[2018-03-19] MEDS: AMLODIPINE 5 MG TAB PO SCH (08:56)
[2018-03-19] MEDS: CRANBERRY FRUIT EXTRACT 200 MG CAP PO SCH ×2 (08:56→21:00)
[2018-03-19] MEDS: TRAMADOL HCL 50 MG TAB PO PRN ×2 (08:57→18:05)
[2018-03-19] MEDS: APIXABAN 2.5 MG TABLET PO SCH ×2 (08:57→21:01)
[2018-03-19] MEDS: CEFUROXIME 250 MG TAB PO SCH ×2 (08:57→21:01)
[2018-03-19] MEDS: ALBUTEROL INHALER 60 PUFF/8 GM IH SCH (09:13)
--- NOTE | 2018-03-19 15:46 | FAST ---
SHIFT START DATE/TIME: 03/19/2018 07:00 (CDT) SHIFT END DATE/TIME: 03/19/2018 19:00 (CDT) NAME VINCE [place] DATE OF : 1945 DATE OF ADMISSION: 03/11/2018 14:49 (CDT) PHONE: AGE: 73 SSN# [id number] GENDER: Female ENCOUNTER PHYSICIAN: Dr. Ricih Fitzgerald M.D. ADMISSION DIAGNOSIS: - Orthopaedic Disorders 08 - Other Orthopaedic (08.9) right hip dislocation. EATING: EATING - STEP 1: Does the patient require assistance when eating? Yes. EATING - STEP 2: Does the patient require the assistance of a helper? No, patient only requires an assistive device, O R s/he takes more than reasonable time to eat, OR there is a safety concern, OR s/he requires modifie d food consistency EATING - SCORE: 6-JAYDE GROOMING: GROOMING - STEP 1: Does the patient require assistance when grooming? Yes. GROOMING - STEP 2: Does the patient require the assistance of a helper? No. The patient only requires an assistive devic e, OR takes more than reasonable time to groom, OR there is a concern for safety as the patient groom s GROOMING - SCORE: 6-JAYDE BATHING: Activity did not occur on this shift BATHING - SCORE: 0-UNK DRESSING - UPPER BODY: T-shirt/pullover shirt (four steps) ARTICLES SCORE Total number of steps: 4 DRESSING - UPPER BODY - STEP 1: Does the patient require help when dressing above the waist? Yes. DRESSING - UPPER BODY - STEP 2: Does the patient require the assistance of a helper? No. Patient only requires an assistive device, s uch as a button hook, velcro, or counselor nurses[employer]. OR s/he takes more than reasonable time as s/he dresses the upper body. OR there is a concern for safety when s/he dresses the upper body DRESSING - UPPER BODY - SCORE: 6-JAYDE DRESSING - LOWER BODY: Elastic waist pants (three steps) ARTICLES SCORE Total number of steps: 3 DRESSING - LOWER BODY - STEP 1: Does the patient require help when dressing below the waist? Yes. DRESSING - LOWER BODY - STEP 2: Does the patient require the assistance of a helper? No. Patient requires an assistive device such as a counselor nurses[employer] association. OR s/he takes more than reasonable time as s/he dresses the lower body, OR there is a con cern for safety when s/he dresses the lower body DRESSING - LOWER BODY - SCORE: 6-JAYDE TOILETING: TOILETING - STEP 1: Does the patient require assistance with toileting? Yes. TOILETING - STEP 2: Does the patient require the assistance of a helper? Yes. TOILETING - STEP 3: How much assistance does the patient require from the helper? Only supervision TOILETING - SCORE: 5-SUP BLADDER MANAGEMENT: BLADDER MANAGEMENT - STEP 1: Does the patient control the bladder completely and intentionally without equipment or devices or med ications, and is always continent? No. BLADDER MANAGEMENT - STEP 2: Does the patient require the assistance of a helper? Yes. BLADDER MANAGEMENT - STEP 3: How much assistance does the patient require from the helper? Only supervision, stand-by, cuing, or c oaxing BLADDER MANAGEMENT - SCORE: 5-SUP BLADDER MANAGEMENT - FREQUENCY OF ACCIDENTS: BLADDER MANAGEMENT(FA) - STEP 1: How many accidents has the patient had during the current shift? 1 BOWEL MANAGEMENT: Activity did not occur on this shift BOWEL MANAGEMENT - SCORE: 7-IND BOWEL MANAGEMENT - FREQUENCY OF ACCIDENTS: BOWEL MANAGEMENT(FA) - STEP 1: How many accidents has the patient had during the current shift? 0 TRANSFERS: BED, CHAIR, WHEELCHAIR: TRANSFERS: BED, CHAIR, WHEELCHAIR - STEP 1: Does the patient require assistance with bed, chair, or wheelchair transfers? Yes. TRANSFERS: BED, CHAIR, WHEELCHAIR - STEP 2: Does the patient require the assistance of a helper? Yes. TRANSFERS: BED, CHAIR, WHEELCHAIR - STEP 3: How much assistance does the patient require from the helper? Lifting of the legs TRANSFERS: BED, CHAIR, WHEELCHAIR - STEP 4: How many legs does the patient require the helper to lift? both legs TRANSFERS: BED, CHAIR, WHEELCHAIR - SCORE: 3-MOD TRANSFERS: TOILET: TRANSFERS: TOILET - STEP 1: Does the patient require assistance with toilet transfers? Yes. TRANSFERS: TOILET - STEP 2: Does the patient require the assistance of a helper? No. Patient only requires an assistive device banda ch as a grab bar or special seat, OR s/he takes more than reasonable time to perform toilet transfers , OR there is a safety concern when s/he performs toilet transfers. TRANSFERS: TOILET - SCORE: 6-JAYDE TRANSFERS: SHOWER: Activity did not occur on this shift TRANSFERS: SHOWER - SCORE: 0-UNK TRANSFERS: TUB: Activity did not occur on this shift TRANSFERS: TUB - SCORE: 0-UNK LOCOMOTION: WALK: Activity did not occur on this shift LOCOMOTION: WALK - SCORE: 0-UNK LOCOMOTION: WHEELCHAIR: Patient propels wheelchair less than 50 ft LOCOMOTION: WHEELCHAIR - SCORE: 1-DEP COMPREHENSION: COMPREHENSION: TYPE: Both COMPREHENSION - STEP 1: Does the patient require help to understand complex and abstract ideas (such as current events, finan renea, discharge planning, medical issues, relationships, etc)? Yes. COMPREHENSION - STEP 2: Does the patient require help to understand questions or statements about basic needs or ideas (such as hunger, thirst, sleep, safety, daily schedule, room location, or discomfort) half or more of the t joon? No. COMPREHENSION - STEP 3: How often does the patient need help to understand directions and conversation about basic needs? Les s than 10% of the time COMPREHENSION - SCORE: 5-SUP EXPRESSION EXPRESSION: TYPE: Both EXPRESSION - STEP 1: Does the patient require help expressing complex and abstract ideas (such as current events, finances , discharge planning, medical issues, relationships, etc)? Yes. EXPRESSION - STEP 2: Does the patient require help to express basic necessities or ideas (such as hunger, thirst, sleep, s afety, daily schedule, room location, or discomfort) half or more of the time? No. EXPRESSION - STEP 3: How often does the patient need help to express directions and conversation about basic needs? Less t gallego 10% of the time EXPRESSION - SCORE: 5-SUP SOCIAL INTERACTION: SOCIAL INTERACTION - STEP 1: Does the patient require a helper to interact with others in social and therapeutic situations? No. SOCIAL INTERACTION - STEP 2: Does the patient need extra time in social situations, OR does s/he interact with staff, other patien ts, and family members ONLY in structured environments, OR does s/he require medication for social in teraction? Yes, patient needs extra time SOCIAL INTERACTION - SCORE: 6-JAYDE PROBLEM SOLVING: PROBLEM SOLVING - STEP 1: Does the patient need help to solve complex problems such as managing a checking account or confronti ng interpersonal problems? Yes. PROBLEM SOLVING - STEP 2: Does the patient solve basic routine problems half or more of the time? Yes. PROBLEM SOLVING - STEP 3: How often does the patient need help to solve basic routine problems? Less than 10% of the time PROBLEM SOLVING - SCORE: 5-SUP MEMORY: MEMORY - STEP 1: Does the patient need help to remember frequently encountered people, daily routines, and executing r equests? Yes. MEMORY - STEP 2: How often does the patient need help to remember frequently encountered people, daily routines, and e xecuting requests? Less than 10% of the time MEMORY - SCORE: 5-SUP SIGNATURE PANEL: The following modified sections: Eating - Score, Grooming - Score, Bathing - Score, Dressing - Upper Body - Score, Dressing - Lower Body - Score, Toileting - Score, Bladder Management - Score, Bowel Man agement - Score, Transfers: Bed, Chair, Wheelchair - Score, Transfers: Toilet - Score, Transfers: Pepper wer - Score, Transfers: Tub - Score, Locomotion: Walk - Score, Locomotion: Wheelchair - Score, Compre hension - Score, Expression - Score, Social Interaction - Score, Problem Solving - Score, Memory - Sc ore were [electronically] signed by Josie Spencer C.N.A. on Sat Mar 19 2018 15:45:22 T-0500 (Centra [place] Daylight Time)
[2018-03-19] MEDS: ALBUTEROL 2.5 MG/3 ML NEB SOL NEB PRN (20:04)
[2018-03-19] MEDS: PANTOPRAZOLE 40MG TABLET PO SCH (21:00)
[2018-03-19] MEDS: ATORVASTATIN 10 MG TAB PO SCH (21:00)
[2018-03-19] MEDS: LORAZEPAM 0.5 MG TABLET PO SCH (21:01)
[2018-03-19] MEDS: GUAIFENESIN/DM 5 ML UCUP PO PRN (21:06)
[2018-03-19] MEDS: MAGNES/ALUMIN/SIMET 30ML UCUP PO PRN (21:06)
--- NOTE | 2018-03-20 02:30 | FAST ---
SHIFT START DATE/TIME: 03/19/2018 19:00 (CDT) SHIFT END DATE/TIME: 03/20/2018 07:00 (CDT) NAME VINCE [place] DATE OF : 1945 DATE OF ADMISSION: 03/11/2018 14:49 (CDT) PHONE: AGE: 73 SSN# [id number] GENDER: Female ENCOUNTER PHYSICIAN: Dr. Richi Fitzgerald M.D. ADMISSION DIAGNOSIS: - Orthopaedic Disorders 08 - Other Orthopaedic (08.9) right hip dislocation. EATING: Activity did not occur on this shift EATING - SCORE: 0-UNK GROOMING: Wash, rinse, and dry hands GROOMING - STEP 1: Does the patient require assistance when grooming? Yes. GROOMING - STEP 2: Does the patient require the assistance of a helper? Yes. GROOMING - STEP 3: How much assistance does the patient require from the helper? Cuing, coaxing, instructions, or encour agement for completion of grooming GROOMING - SCORE: 5-SUP BATHING: Activity did not occur on this shift BATHING - SCORE: 0-UNK DRESSING - UPPER BODY: Patient is not dressing in public clothing ARTICLES SCORE Total number of steps: 0 DRESSING - UPPER BODY - SCORE: 0-UNK DRESSING - LOWER BODY: Patient is not dressing in public clothing ARTICLES SCORE Total number of steps: 0 DRESSING - LOWER BODY - SCORE: 0-UNK TOILETING: TOILETING - STEP 1: Does the patient require assistance with toileting? Yes. TOILETING - STEP 2: Does the patient require the assistance of a helper? Yes. TOILETING - STEP 3: How much assistance does the patient require from the helper? Only supervision TOILETING - SCORE: 5-SUP BLADDER MANAGEMENT: [place] removes incontinent device (Depends, pull ups, etc.); cleans the patient after accident / inco ntinent episode; and, applies new incontinent device. BLADDER MANAGEMENT - SCORE: 1-DEP BOWEL MANAGEMENT: Activity did not occur on this shift BOWEL MANAGEMENT - SCORE: 7-IND TRANSFERS: BED, CHAIR, WHEELCHAIR: TRANSFERS: BED, CHAIR, WHEELCHAIR - STEP 1: Does the patient require assistance with bed, chair, or wheelchair transfers? Yes. TRANSFERS: BED, CHAIR, WHEELCHAIR - STEP 2: Does the patient require the assistance of a helper? Yes. TRANSFERS: BED, CHAIR, WHEELCHAIR - STEP 3: How much assistance does the patient require from the helper? Only supervision TRANSFERS: BED, CHAIR, WHEELCHAIR - SCORE: 5-SUP TRANSFERS: TOILET: TRANSFERS: TOILET - STEP 1: Does the patient require assistance with toilet transfers? Yes. TRANSFERS: TOILET - STEP 2: Does the patient require the assistance of a helper? Yes. TRANSFERS: TOILET - STEP 3: How much assistance does the patient require from the helper? Only supervision, cuing, coaxing, OR he lp to set out transfer equipment or to lock brakes and/or lift foot rests TRANSFERS: TOILET - SCORE: 5-SUP TRANSFERS: SHOWER: Activity did not occur on this shift TRANSFERS: SHOWER - SCORE: 0-UNK TRANSFERS: TUB: Activity did not occur on this shift TRANSFERS: TUB - SCORE: 0-UNK LOCOMOTION: WALK: Activity did not occur on this shift LOCOMOTION: WALK - SCORE: 0-UNK LOCOMOTION: WHEELCHAIR: Activity did not occur on this shift LOCOMOTION: WHEELCHAIR - SCORE: 0-UNK COMPREHENSION: COMPREHENSION: TYPE: Both COMPREHENSION - STEP 1: Does the patient require help to understand complex and abstract ideas (such as current events, finan renea, discharge planning, medical issues, relationships, etc)? No. COMPREHENSION - STEP 2: Does the patient need extra time, require an assistive device (such as glasses for visual comprehensi on or a hearing aid for auditory comprehension) or does s/he have mild difficulty understanding compl ex and abstract information? Yes. COMPREHENSION - SCORE: 6-JAYDE EXPRESSION EXPRESSION: TYPE: Both EXPRESSION - STEP 1: Does the patient require help expressing complex and abstract ideas (such as current events, finances , discharge planning, medical issues, relationships, etc)? No. EXPRESSION - STEP 2: Does the patient need extra time, require an assistive device (such as augmentive communication syste m or a communication board), OR does s/he have mild difficulty expressing complex and abstract ideas (including mild dysarthria or mild word-find problems)? No. EXPRESSION - SCORE: 7-IND SOCIAL INTERACTION: SOCIAL INTERACTION - STEP 1: Does the patient require a helper to interact with others in social and therapeutic situations? No. SOCIAL INTERACTION - STEP 2: Does the patient need extra time in social situations, OR does s/he interact with staff, other patien ts, and family members ONLY in structured environments, OR does s/he require medication for social in teraction? Yes, patient needs extra time SOCIAL INTERACTION - SCORE: 6-JAYDE PROBLEM SOLVING: PROBLEM SOLVING - STEP 1: Does the patient need help to solve complex problems such as managing a checking account or confronti ng interpersonal problems? No. PROBLEM SOLVING - STEP 2: Does the patient require extra time to make decisions or solve problems, OR does s/he have slight dif ficulty reading, initiating, or self-correcting in unfamiliar situations? Yes, patient needs extra ti me. PROBLEM SOLVING - SCORE: 6-JAYDE MEMORY: MEMORY - STEP 1: Does the patient need help to remember frequently encountered people, daily routines, and executing r equests? No. MEMORY - STEP 2: Does the patient have slight difficulty recognizing frequently encountered people, daily routines, or executing requests without the need for repetition or using self-initiated or environmental cues to remember? Yes. MEMORY - SCORE: 6-JAYDE SIGNATURE PANEL: The following modified sections: Eating - Score, Grooming - Score, Dressing - Upper Body - Score, Salomon ssing - Lower Body - Score, Toileting - Score, Bladder Management - Score, Bowel Management - Score, Transfers: Bed, Chair, Wheelchair - Score, Transfers: Toilet - Score, Transfers: Shower - Score, Javier sfers: Tub - Score, Locomotion: Walk - Score, Locomotion: Wheelchair - Score, Comprehension - Score, Expression - Score, Social Interaction - Score, Problem Solving - Score, Memory - Score were [electro nically] signed by Anu Orosco CNA on WedMar 20 2018 02:25:32 GMT-0500 (Central Daylight Time)
[2018-03-20] MEDS: CRANBERRY FRUIT EXTRACT 200 MG CAP PO SCH ×2 (08:00→20:10)
[2018-03-20] MEDS: PROMOD 30 ML DOSE PO SCH ×2 (08:00→20:00)
[2018-03-20] MEDS: HOME MED 1 EA UNK IH SCH (08:00)
[2018-03-20] MEDS: GUAIFENESIN/DM 5 ML UCUP PO PRN ×2 (08:47→20:15)
[2018-03-20] MEDS: GABAPENTIN 300 MG CAP PO SCH ×2 (08:47→20:11)
[2018-03-20] MEDS: FERROUS SULFATE 325 MG TAB PO SCH (08:48)
[2018-03-20] MEDS: APIXABAN 2.5 MG TABLET PO SCH ×2 (08:49→20:10)
[2018-03-20] MEDS: FLUOXETINE 20 MG CAP PO SCH (08:49)
[2018-03-20] MEDS: predniSONE 10 MG TAB PO SCH (08:50)
[2018-03-20] MEDS: AMLODIPINE 5 MG TAB PO SCH (08:50)
[2018-03-20] MEDS: CEFUROXIME 250 MG TAB PO SCH ×2 (08:50→20:11)
[2018-03-20] MEDS: FE SULF/FA/VIT B COMP & C TAB PO SCH (08:50)
[2018-03-20] MEDS: ALBUTEROL INHALER 60 PUFF/8 GM IH SCH (08:52)
[2018-03-20] MEDS ORDERED: IPRATROPIUM BROM 0.5MG/2.5ML NEB SCH (14:00)
[2018-03-20] MEDS ORDERED: ALBUTEROL 2.5 MG/3 ML NEB SOL NEB SCH (14:00)
--- NOTE | 2018-03-20 15:05 | FAST ---
SHIFT START DATE/TIME: 03/20/2018 07:00 (CDT) SHIFT END DATE/TIME: 03/20/2018 19:00 (CDT) NAME VINCE [place] DATE OF : 1945 DATE OF ADMISSION: 03/11/2018 14:49 (CDT) PHONE: AGE: 73 SSN# [id number] GENDER: Female ENCOUNTER PHYSICIAN: Dr. Richi Fitzgerald M.D. ADMISSION DIAGNOSIS: - Orthopaedic Disorders 08 - Other Orthopaedic (08.9) right hip dislocation. EATING: EATING - STEP 1: Does the patient require assistance when eating? Yes. EATING - STEP 2: Does the patient require the assistance of a helper? No, patient only requires an assistive device, O R s/he takes more than reasonable time to eat, OR there is a safety concern, OR s/he requires modifie d food consistency EATING - SCORE: 6-JAYDE GROOMING: Wash, rinse, and dry face Wash, rinse, and dry hands GROOMING - STEP 1: Does the patient require assistance when grooming? Yes. GROOMING - STEP 2: Does the patient require the assistance of a helper? No. The patient only requires an assistive devic e, OR takes more than reasonable time to groom, OR there is a concern for safety as the patient groom s GROOMING - SCORE: 6-JAYDE BATHING: Activity did not occur on this shift BATHING - SCORE: 0-UNK DRESSING - UPPER BODY: Activity did not occur on this shift ARTICLES SCORE Total number of steps: 0 DRESSING - UPPER BODY - SCORE: 0-UNK DRESSING - LOWER BODY: Activity did not occur on this shift ARTICLES SCORE Total number of steps: 0 DRESSING - LOWER BODY - SCORE: 0-UNK TOILETING: TOILETING - STEP 1: Does the patient require assistance with toileting? Yes. TOILETING - STEP 2: Does the patient require the assistance of a helper? Yes. TOILETING - STEP 3: How much assistance does the patient require from the helper? Only supervision TOILETING - SCORE: 5-SUP BLADDER MANAGEMENT: BLADDER MANAGEMENT - STEP 1: Does the patient control the bladder completely and intentionally without equipment or devices or med ications, and is always continent? No. BLADDER MANAGEMENT - STEP 2: Does the patient require the assistance of a helper? Yes. BLADDER MANAGEMENT - STEP 3: How much assistance does the patient require from the helper? Only supervision, stand-by, cuing, or c oaxing BLADDER MANAGEMENT - SCORE: 5-SUP BLADDER MANAGEMENT - FREQUENCY OF ACCIDENTS: BLADDER MANAGEMENT(FA) - STEP 1: How many accidents has the patient had during the current shift? 0 BOWEL MANAGEMENT: BOWEL MANAGEMENT - STEP 1: Does the patient control bowels completely and intentionally without equipment devices or medications AND is always continent? No. BOWEL MANAGEMENT - STEP 2: Does the patient require the assistance of a helper? No, patient requires medication for control such as stool softeners, suppositories, laxatives, enemas, or OTC medications BOWEL MANAGEMENT - SCORE: 6-JAYDE BOWEL MANAGEMENT - FREQUENCY OF ACCIDENTS: BOWEL MANAGEMENT(FA) - STEP 1: How many accidents has the patient had during the current shift? 0 TRANSFERS: BED, CHAIR, WHEELCHAIR: TRANSFERS: BED, CHAIR, WHEELCHAIR - STEP 1: Does the patient require assistance with bed, chair, or wheelchair transfers? Yes. TRANSFERS: BED, CHAIR, WHEELCHAIR - STEP 2: Does the patient require the assistance of a helper? No. Patient only requires an assistive device fo r bed, chair, wheelchair transfers such as a sliding board, grab bar, or brace, OR s/he takes more th an reasonable time, OR there is a safety concern when s/he performs the transfers TRANSFERS: BED, CHAIR, WHEELCHAIR - SCORE: 6-JAYDE TRANSFERS: TOILET: TRANSFERS: TOILET - STEP 1: Does the patient require assistance with toilet transfers? Yes. TRANSFERS: TOILET - STEP 2: Does the patient require the assistance of a helper? No. Patient only requires an assistive device banda ch as a grab bar or special seat, OR s/he takes more than reasonable time to perform toilet transfers , OR there is a safety concern when s/he performs toilet transfers. TRANSFERS: TOILET - SCORE: 6-JAYDE TRANSFERS: SHOWER: Activity did not occur on this shift TRANSFERS: SHOWER - SCORE: 0-UNK TRANSFERS: TUB: Activity did not occur on this shift TRANSFERS: TUB - SCORE: 0-UNK LOCOMOTION: WALK: Activity did not occur on this shift LOCOMOTION: WALK - SCORE: 0-UNK LOCOMOTION: WHEELCHAIR: Activity did not occur on this shift LOCOMOTION: WHEELCHAIR - SCORE: 0-UNK COMPREHENSION: COMPREHENSION: TYPE: Both COMPREHENSION - STEP 1: Does the patient require help to understand complex and abstract ideas (such as current events, finan renea, discharge planning, medical issues, relationships, etc)? Yes. COMPREHENSION - STEP 2: Does the patient require help to understand questions or statements about basic needs or ideas (such as hunger, thirst, sleep, safety, daily schedule, room location, or discomfort) half or more of the t joon? No. COMPREHENSION - STEP 3: How often does the patient need help to understand directions and conversation about basic needs? Les s than 10% of the time COMPREHENSION - SCORE: 5-SUP EXPRESSION EXPRESSION: TYPE: Both EXPRESSION - STEP 1: Does the patient require help expressing complex and abstract ideas (such as current events, finances , discharge planning, medical issues, relationships, etc)? Yes. EXPRESSION - STEP 2: Does the patient require help to express basic necessities or ideas (such as hunger, thirst, sleep, s afety, daily schedule, room location, or discomfort) half or more of the time? No. EXPRESSION - STEP 3: How often does the patient need help to express directions and conversation about basic needs? Less t gallego 10% of the time EXPRESSION - SCORE: 5-SUP SOCIAL INTERACTION: SOCIAL INTERACTION - STEP 1: Does the patient require a helper to interact with others in social and therapeutic situations? No. SOCIAL INTERACTION - STEP 2: Does the patient need extra time in social situations, OR does s/he interact with staff, other patien ts, and family members ONLY in structured environments, OR does s/he require medication for social in teraction? Yes, patient needs extra time SOCIAL INTERACTION - SCORE: 6-JAYDE PROBLEM SOLVING: PROBLEM SOLVING - STEP 1: Does the patient need help to solve complex problems such as managing a checking account or confronti ng interpersonal problems? Yes. PROBLEM SOLVING - STEP 2: Does the patient solve basic routine problems half or more of the time? Yes. PROBLEM SOLVING - STEP 3: How often does the patient need help to solve basic routine problems? Less than 10% of the time PROBLEM SOLVING - SCORE: 5-SUP MEMORY: MEMORY - STEP 1: Does the patient need help to remember frequently encountered people, daily routines, and executing r equests? No. MEMORY - STEP 2: Does the patient have slight difficulty recognizing frequently encountered people, daily routines, or executing requests without the need for repetition or using self-initiated or environmental cues to remember? Yes. MEMORY - SCORE: 6-JAYDE SIGNATURE PANEL: The following modified sections: Eating - Score, Grooming - Score, Bathing - Score, Dressing - Upper Body - Score, Dressing - Lower Body - Score, Toileting - Score, Bladder Management - Score, Bowel Man agement - Score, Transfers: Bed, Chair, Wheelchair - Score, Transfers: Toilet - Score, Transfers: Pepper wer - Score, Transfers: Tub - Score, Locomotion: Walk - Score, Locomotion: Wheelchair - Score, Compre hension - Score, Expression - Score, Social Interaction - Score, Problem Solving - Score, Memory - Sc ore were [electronically] signed by Josie Spencer C.N.A. on WedMar 20 2018 15:05:31 T-0500 (Centra l Daylight Time)
[2018-03-20] MEDS: TRAMADOL HCL 50 MG TAB PO PRN ×2 (15:54→20:11)
--- NOTE | 2018-03-20 18:28 | RAD REPORT ---
EXAM DESCRIPTION: RAD - Knee Left 2 View - 03/20/2018 5:58 pm CLINICAL HISTORY: pain s/p fall COMPARISON: None FINDINGS: Total knee arthroplasty is present. No fracture or significant joint effusion seen.
[2018-03-20] MEDS: PANTOPRAZOLE 40MG TABLET PO SCH (20:11)
[2018-03-20] MEDS: ATORVASTATIN 10 MG TAB PO SCH (20:11)
[2018-03-20] MEDS: LORAZEPAM 0.5 MG TABLET PO SCH (20:12)
[2018-03-20] MEDS: DULERA 100/5 (MOMETASONE/FORMOTEROL) INHALER IH SCH (20:15)
[2018-03-20] MEDS: CALCIUM CARBONATE CHEW 500MG TAB PO PRN (21:57)
[2018-03-20] MEDS: MAGNES/ALUMIN/SIMET 30ML UCUP PO PRN (21:59)
--- NOTE | 2018-03-21 02:04 | FAST ---
SHIFT START DATE/TIME: 03/20/2018 19:00 (CDT) SHIFT END DATE/TIME: 03/21/2018 07:00 (CDT) NAME VINCE [place] DATE OF : 1945 DATE OF ADMISSION: 03/11/2018 14:49 (CDT) PHONE: AGE: 73 SSN# [id number] GENDER: Female ENCOUNTER PHYSICIAN: Dr. Richi Fitzgerald M.D. ADMISSION DIAGNOSIS: - Orthopaedic Disorders 08 - Other Orthopaedic (08.9) right hip dislocation. EATING: Activity did not occur on this shift EATING - SCORE: 0-UNK GROOMING: Wash, rinse, and dry hands GROOMING - STEP 1: Does the patient require assistance when grooming? Yes. GROOMING - STEP 2: Does the patient require the assistance of a helper? Yes. GROOMING - STEP 3: How much assistance does the patient require from the helper? Cuing, coaxing, instructions, or encour agement for completion of grooming GROOMING - SCORE: 5-SUP BATHING: Activity did not occur on this shift BATHING - SCORE: 0-UNK DRESSING - UPPER BODY: Patient is not dressing in public clothing ARTICLES SCORE Total number of steps: 0 DRESSING - UPPER BODY - SCORE: 0-UNK DRESSING - LOWER BODY: Patient is not dressing in public clothing ARTICLES SCORE Total number of steps: 0 DRESSING - LOWER BODY - SCORE: 0-UNK TOILETING: TOILETING - STEP 1: Does the patient require assistance with toileting? Yes. TOILETING - STEP 2: Does the patient require the assistance of a helper? Yes. TOILETING - STEP 3: How much assistance does the patient require from the helper? Only supervision TOILETING - SCORE: 5-SUP BLADDER MANAGEMENT: BLADDER MANAGEMENT - STEP 1: Does the patient control the bladder completely and intentionally without equipment or devices or med ications, and is always continent? No. BLADDER MANAGEMENT - STEP 2: Does the patient require the assistance of a helper? Yes. BLADDER MANAGEMENT - STEP 3: How much assistance does the patient require from the helper? Only supervision, stand-by, cuing, or c oaxing BLADDER MANAGEMENT - SCORE: 5-SUP BOWEL MANAGEMENT: Activity did not occur on this shift BOWEL MANAGEMENT - SCORE: 7-IND TRANSFERS: BED, CHAIR, WHEELCHAIR: TRANSFERS: BED, CHAIR, WHEELCHAIR - STEP 1: Does the patient require assistance with bed, chair, or wheelchair transfers? Yes. TRANSFERS: BED, CHAIR, WHEELCHAIR - STEP 2: Does the patient require the assistance of a helper? Yes. TRANSFERS: BED, CHAIR, WHEELCHAIR - STEP 3: How much assistance does the patient require from the helper? Steadying/guiding assistance TRANSFERS: BED, CHAIR, WHEELCHAIR - SCORE: 4-MIN TRANSFERS: TOILET: TRANSFERS: TOILET - STEP 1: Does the patient require assistance with toilet transfers? Yes. TRANSFERS: TOILET - STEP 2: Does the patient require the assistance of a helper? Yes. TRANSFERS: TOILET - STEP 3: How much assistance does the patient require from the helper? Only supervision, cuing, coaxing, OR he lp to set out transfer equipment or to lock brakes and/or lift foot rests TRANSFERS: TOILET - SCORE: 5-SUP TRANSFERS: SHOWER: Activity did not occur on this shift TRANSFERS: SHOWER - SCORE: 0-UNK TRANSFERS: TUB: Activity did not occur on this shift TRANSFERS: TUB - SCORE: 0-UNK LOCOMOTION: WALK: Activity did not occur on this shift LOCOMOTION: WALK - SCORE: 0-UNK LOCOMOTION: WHEELCHAIR: Activity did not occur on this shift LOCOMOTION: WHEELCHAIR - SCORE: 0-UNK COMPREHENSION: COMPREHENSION: TYPE: Both COMPREHENSION - STEP 1: Does the patient require help to understand complex and abstract ideas (such as current events, finan renea, discharge planning, medical issues, relationships, etc)? No. COMPREHENSION - STEP 2: Does the patient need extra time, require an assistive device (such as glasses for visual comprehensi on or a hearing aid for auditory comprehension) or does s/he have mild difficulty understanding compl ex and abstract information? Yes. COMPREHENSION - SCORE: 6-JAYDE EXPRESSION EXPRESSION: TYPE: Both EXPRESSION - STEP 1: Does the patient require help expressing complex and abstract ideas (such as current events, finances , discharge planning, medical issues, relationships, etc)? No. EXPRESSION - STEP 2: Does the patient need extra time, require an assistive device (such as augmentive communication syste m or a communication board), OR does s/he have mild difficulty expressing complex and abstract ideas (including mild dysarthria or mild word-find problems)? No. EXPRESSION - SCORE: 7-IND SOCIAL INTERACTION: SOCIAL INTERACTION - STEP 1: Does the patient require a helper to interact with others in social and therapeutic situations? No. SOCIAL INTERACTION - STEP 2: Does the patient need extra time in social situations, OR does s/he interact with staff, other patien ts, and family members ONLY in structured environments, OR does s/he require medication for social in teraction? Yes, patient needs extra time SOCIAL INTERACTION - SCORE: 6-JAYDE PROBLEM SOLVING: PROBLEM SOLVING - STEP 1: Does the patient need help to solve complex problems such as managing a checking account or confronti ng interpersonal problems? No. PROBLEM SOLVING - STEP 2: Does the patient require extra time to make decisions or solve problems, OR does s/he have slight dif ficulty reading, initiating, or self-correcting in unfamiliar situations? Yes, patient needs extra ti me. PROBLEM SOLVING - SCORE: 6-JAYDE MEMORY: MEMORY - STEP 1: Does the patient need help to remember frequently encountered people, daily routines, and executing r equests? No. MEMORY - STEP 2: Does the patient have slight difficulty recognizing frequently encountered people, daily routines, or executing requests without the need for repetition or using self-initiated or environmental cues to remember? Yes. MEMORY - SCORE: 6-JAYDE SIGNATURE PANEL: The following modified sections: Eating - Score, Grooming - Score, Dressing - Upper Body - Score, Salomon ssing - Lower Body - Score, Toileting - Score, Bladder Management - Score, Bowel Management - Score, Transfers: Bed, Chair, Wheelchair - Score, Transfers: Toilet - Score, Transfers: Shower - Score, Javier sfers: Tub - Score, Locomotion: Walk - Score, Locomotion: Wheelchair - Score, Comprehension - Score, Expression - Score, Social Interaction - Score, Problem Solving - Score, Memory - Score were [electro nically] signed by Anu Orosco CNA on WedMar 21 2018 01:59:04 GMT-0500 (Central Daylight Time)
[2018-03-21] MEDS: DULERA 100/5 (MOMETASONE/FORMOTEROL) INHALER IH SCH ×2 (07:21→19:30)
[2018-03-21] MEDS: ALBUTEROL INHALER 60 PUFF/8 GM IH SCH (07:21)
[2018-03-21] MEDS: PROMOD 30 ML DOSE PO SCH ×2 (08:00→19:31)
[2018-03-21] MEDS: FERROUS SULFATE 325 MG TAB PO SCH (09:00)
[2018-03-21] MEDS: APIXABAN 2.5 MG TABLET PO SCH ×2 (09:00→19:31)
[2018-03-21] MEDS: GABAPENTIN 300 MG CAP PO SCH ×2 (09:00→19:31)
[2018-03-21] MEDS: predniSONE 10 MG TAB PO SCH (09:00)
[2018-03-21] MEDS: FE SULF/FA/VIT B COMP & C TAB PO SCH (09:00)
[2018-03-21] MEDS: AMLODIPINE 5 MG TAB PO SCH (09:00)
[2018-03-21] MEDS: CRANBERRY FRUIT EXTRACT 200 MG CAP PO SCH ×2 (09:00→19:30)
[2018-03-21] MEDS: CEFUROXIME 250 MG TAB PO SCH ×2 (09:00→19:31)
[2018-03-21] MEDS: FLUOXETINE 20 MG CAP PO SCH (09:00)
[2018-03-21] MEDS: GUAIFENESIN/DM 5 ML UCUP PO PRN ×2 (09:10→20:48)
--- NOTE | 2018-03-21 11:28 | FAST ---
ENCOUNTER DATE AND TIME: 03/14/2018 08:00 (CDT) NAME VINCE [place] DATE OF : 1945 DATE OF ADMISSION: 03/11/2018 14:49 (CDT) PHONE: AGE: 73 SSN# [id number] GENDER: Female ENCOUNTER PHYSICIAN: Dr. Richi Fitzgerald M.D. ADMISSION DIAGNOSIS: - Orthopaedic Disorders 08 - Other Orthopaedic (08.9) right hip dislocation. EATING: Activity did not occur on this shift EATING - SCORE: 0-UNK GROOMING: Activity did not occur on this shift GROOMING - SCORE: 0-UNK BATHING: Activity did not occur on this shift BATHING - SCORE: 0-UNK DRESSING - UPPER BODY: Activity did not occur on this shift Patient is not dressing in public clothing ARTICLES SCORE Total number of steps: 0 DRESSING - UPPER BODY - SCORE: 0-UNK DRESSING - LOWER BODY: Activity did not occur on this shift Patient is not dressing in public clothing ARTICLES SCORE Total number of steps: 0 DRESSING - LOWER BODY - SCORE: 0-UNK TOILETING: Activity did not occur on this shift TOILETING - SCORE: 0-UNK BLADDER MANAGEMENT: Activity did not occur on this shift BLADDER MANAGEMENT - SCORE: 7-IND BOWEL MANAGEMENT: Activity did not occur on this shift BOWEL MANAGEMENT - SCORE: 7-IND TRANSFERS: BED, CHAIR, WHEELCHAIR: TRANSFERS: BED, CHAIR, WHEELCHAIR - STEP 1: Does the patient require assistance with bed, chair, or wheelchair transfers? Yes. TRANSFERS: BED, CHAIR, WHEELCHAIR - STEP 2: Does the patient require the assistance of a helper? Yes. TRANSFERS: BED, CHAIR, WHEELCHAIR - STEP 3: How much assistance does the patient require from the helper? Only supervision TRANSFERS: BED, CHAIR, WHEELCHAIR - SCORE: 5-SUP TRANSFERS: TOILET: Activity did not occur on this shift TRANSFERS: TOILET - SCORE: 0-UNK TRANSFERS: SHOWER: Activity did not occur on this shift TRANSFERS: SHOWER - SCORE: 0-UNK TRANSFERS: TUB: Activity did not occur on this shift TRANSFERS: TUB - SCORE: 0-UNK LOCOMOTION: WALK: LOCOMOTION: WALK - STEP 1: Does the patient need help to walk 150 feet? Yes. LOCOMOTION: WALK - STEP 2: How much assistance does the patient require to walk a minimum of 150 feet? Only supervision, cuing, or coaxing LOCOMOTION: WALK - SCORE: 5-SUP LOCOMOTION: WHEELCHAIR: LOCOMOTION: WHEELCHAIR - STEP 1: Does the patient need help to go 150 feet in a wheelchair? Yes. LOCOMOTION: WHEELCHAIR - STEP 2: How much assistance does the patient need from the helper? Only supervision, cuing, or coaxing LOCOMOTION: WHEELCHAIR - SCORE: 5-SUP LOCOMOTION: STAIRS: LOCOMOTION: STAIRS - STEP 1: Does the patient need help to go up and down 12 to 14 stairs? Yes. LOCOMOTION: STAIRS - STEP 2: How much assistance does the patient need from the helper to go a minimum of 12 to 14 stairs? The pat ient goes less than 12 to 14 stairs - but more than 4 to 6 stairs LOCOMOTION: STAIRS - SCORE: 2-MAX COMPREHENSION: COMPREHENSION - SCORE: 0-UNK EXPRESSION EXPRESSION - SCORE: 0-UNK SOCIAL INTERACTION: SOCIAL INTERACTION - SCORE: 0-UNK PROBLEM SOLVING: PROBLEM SOLVING - SCORE: 0-UNK MEMORY: MEMORY - SCORE: 0-UNK SIGNATURE PANEL: The following modified sections: Transfers: Bed, Chair, Wheelchair - Score, Transfers: Toilet - Score , Locomotion: Walk - Score, Locomotion: Wheelchair - Score, Locomotion: Stairs - Score were [electron oscar] signed by Archie Villalta PTA on WedMar 21 2018 11:28:21 GMT-0500 (Central Daylight Time)
--- NOTE | 2018-03-21 14:58 | FAST ---
ENCOUNTER DATE AND TIME: 03/21/2018 08:00 (CDT) NAME VINCE [place] DATE OF : 1945 DATE OF ADMISSION: 03/11/2018 14:49 (CDT) PHONE: AGE: 73 SSN# [id number] GENDER: Female ENCOUNTER PHYSICIAN: Dr. Richi Fitzgerald M.D. ADMISSION DIAGNOSIS: - Orthopaedic Disorders 08 - Other Orthopaedic (08.9) right hip dislocation. EATING: Activity did not occur on this shift EATING - SCORE: 0-UNK GROOMING: Activity did not occur on this shift GROOMING - SCORE: 0-UNK BATHING: Activity did not occur on this shift BATHING - SCORE: 0-UNK DRESSING - UPPER BODY: Activity did not occur on this shift Patient is not dressing in public clothing ARTICLES SCORE Total number of steps: 0 DRESSING - UPPER BODY - SCORE: 0-UNK DRESSING - LOWER BODY: Activity did not occur on this shift Patient is not dressing in public clothing ARTICLES SCORE Total number of steps: 0 DRESSING - LOWER BODY - SCORE: 0-UNK TOILETING: Activity did not occur on this shift TOILETING - SCORE: 0-UNK BLADDER MANAGEMENT: Activity did not occur on this shift BLADDER MANAGEMENT - SCORE: 7-IND BOWEL MANAGEMENT: Activity did not occur on this shift BOWEL MANAGEMENT - SCORE: 7-IND TRANSFERS: BED, CHAIR, WHEELCHAIR: TRANSFERS: BED, CHAIR, WHEELCHAIR - STEP 1: Does the patient require assistance with bed, chair, or wheelchair transfers? Yes. TRANSFERS: BED, CHAIR, WHEELCHAIR - STEP 2: Does the patient require the assistance of a helper? Yes. TRANSFERS: BED, CHAIR, WHEELCHAIR - STEP 3: How much assistance does the patient require from the helper? Only supervision TRANSFERS: BED, CHAIR, WHEELCHAIR - SCORE: 5-SUP TRANSFERS: TOILET: Activity did not occur on this shift TRANSFERS: TOILET - SCORE: 0-UNK TRANSFERS: SHOWER: Activity did not occur on this shift TRANSFERS: SHOWER - SCORE: 0-UNK TRANSFERS: TUB: Activity did not occur on this shift TRANSFERS: TUB - SCORE: 0-UNK LOCOMOTION: WALK: LOCOMOTION: WALK - STEP 1: Does the patient need help to walk 150 feet? Yes. LOCOMOTION: WALK - STEP 2: How much assistance does the patient require to walk a minimum of 150 feet? Only supervision, cuing, or coaxing LOCOMOTION: WALK - SCORE: 5-SUP LOCOMOTION: WHEELCHAIR: Activity did not occur on this shift LOCOMOTION: WHEELCHAIR - SCORE: 0-UNK LOCOMOTION: STAIRS: LOCOMOTION: STAIRS - STEP 1: Does the patient need help to go up and down 12 to 14 stairs? Yes. LOCOMOTION: STAIRS - STEP 2: How much assistance does the patient need from the helper to go a minimum of 12 to 14 stairs? Only banda pervision, cuing, or coaxing LOCOMOTION: STAIRS - SCORE: 5-SUP COMPREHENSION: COMPREHENSION - SCORE: 0-UNK EXPRESSION EXPRESSION - SCORE: 0-UNK SOCIAL INTERACTION: SOCIAL INTERACTION - SCORE: 0-UNK PROBLEM SOLVING: PROBLEM SOLVING - SCORE: 0-UNK MEMORY: MEMORY - SCORE: 0-UNK SIGNATURE PANEL: The following modified sections: Transfers: Bed, Chair, Wheelchair - Score, Transfers: Toilet - Score , Locomotion: Walk - Score, Locomotion: Wheelchair - Score, Locomotion: Stairs - Score were [electron icamona] signed by Chris Whatley PT on WedMar 21 2018 14:58:14 GMT-0500 (Central Daylight Time)
[2018-03-21] MEDS: LORAZEPAM 0.5 MG TABLET PO SCH (20:48)
[2018-03-21] MEDS: PANTOPRAZOLE 40MG TABLET PO SCH (20:48)
[2018-03-21] MEDS: ATORVASTATIN 10 MG TAB PO SCH (20:48)
[2018-03-22] MEDS: DULERA 100/5 (MOMETASONE/FORMOTEROL) INHALER IH SCH ×2 (08:00→20:15)
[2018-03-22] MEDS: PROMOD 30 ML DOSE PO SCH ×2 (08:00→19:30)
[2018-03-22] MEDS: ALBUTEROL INHALER 60 PUFF/8 GM IH SCH (08:09)
[2018-03-22] MEDS: GUAIFENESIN/DM 5 ML UCUP PO PRN ×2 (08:10→20:15)
[2018-03-22] MEDS: APIXABAN 2.5 MG TABLET PO SCH ×2 (08:34→20:15)
[2018-03-22] MEDS: GABAPENTIN 300 MG CAP PO SCH ×2 (08:34→20:15)
[2018-03-22] MEDS: AMLODIPINE 5 MG TAB PO SCH (08:35)
[2018-03-22] MEDS: FE SULF/FA/VIT B COMP & C TAB PO SCH (08:35)
[2018-03-22] MEDS: CRANBERRY FRUIT EXTRACT 200 MG CAP PO SCH ×2 (08:35→20:15)
[2018-03-22] MEDS: FERROUS SULFATE 325 MG TAB PO SCH (08:35)
[2018-03-22] MEDS: FLUOXETINE 20 MG CAP PO SCH (08:35)
[2018-03-22] MEDS: predniSONE 10 MG TAB PO SCH (08:35)
[2018-03-22] MEDS: LOPERAMIDE HCL 2 MG CAPSULE PO PRN ×2 (13:56→20:15)
[2018-03-22] MEDS: ONDANSETRON 4 MG (ODT) TAB PO PRN (13:56)
[2018-03-22] MEDS: MAGNES/ALUMIN/SIMET 30ML UCUP PO PRN ×2 (13:56→22:09)
--- NOTE | 2018-03-22 15:00 | FAST ---
SHIFT START DATE/TIME: 03/22/2018 07:00 (CDT) SHIFT END DATE/TIME: 03/22/2018 19:00 (CDT) NAME VINCE [place] DATE OF : 1945 DATE OF ADMISSION: 03/11/2018 14:49 (CDT) PHONE: AGE: 73 SSN# [id number] GENDER: Female ENCOUNTER PHYSICIAN: Dr. Richi Fitzgerald M.D. ADMISSION DIAGNOSIS: - Orthopaedic Disorders 08 - Other Orthopaedic (08.9) right hip dislocation. EATING: EATING - STEP 1: Does the patient require assistance when eating? Yes. EATING - STEP 2: Does the patient require the assistance of a helper? No, patient only requires an assistive device, O R s/he takes more than reasonable time to eat, OR there is a safety concern, OR s/he requires modifie d food consistency EATING - SCORE: 6-JAYDE GROOMING: Activity did not occur on this shift GROOMING - SCORE: 0-UNK BATHING: Activity did not occur on this shift BATHING - SCORE: 0-UNK DRESSING - UPPER BODY: Activity did not occur on this shift ARTICLES SCORE Total number of steps: 0 DRESSING - UPPER BODY - SCORE: 0-UNK DRESSING - LOWER BODY: Activity did not occur on this shift ARTICLES SCORE Total number of steps: 0 DRESSING - LOWER BODY - SCORE: 0-UNK TOILETING: TOILETING - STEP 1: Does the patient require assistance with toileting? Yes. TOILETING - STEP 2: Does the patient require the assistance of a helper? Yes. TOILETING - STEP 3: How much assistance does the patient require from the helper? Hands-on assistance from the helper TOILETING - STEP 4: Of the 3 tasks: 1) Adjusting clothing prior to use, 2) Cleansing of perineal area, 3) Adjusting clot corrine after use; How many tasks does the patient perform WITHOUT assistance of the helper? Three tasks with steadying assistance from the helper TOILETING - SCORE: 4-MIN BLADDER MANAGEMENT: BLADDER MANAGEMENT - STEP 1: Does the patient control the bladder completely and intentionally without equipment or devices or med ications, and is always continent? No. BLADDER MANAGEMENT - STEP 2: Does the patient require the assistance of a helper? No, patient requires and independently uses an a ssistive device, such as a urinal, bedpan, bedside commode, catheter, absorbent pad, or collecting de vice BLADDER MANAGEMENT - SCORE: 6-JAYDE BOWEL MANAGEMENT: Activity did not occur on this shift BOWEL MANAGEMENT - SCORE: 7-IND TRANSFERS: BED, CHAIR, WHEELCHAIR: TRANSFERS: BED, CHAIR, WHEELCHAIR - STEP 1: Does the patient require assistance with bed, chair, or wheelchair transfers? Yes. TRANSFERS: BED, CHAIR, WHEELCHAIR - STEP 2: Does the patient require the assistance of a helper? Yes. TRANSFERS: BED, CHAIR, WHEELCHAIR - STEP 3: How much assistance does the patient require from the helper? Steadying/guiding assistance TRANSFERS: BED, CHAIR, WHEELCHAIR - SCORE: 4-MIN TRANSFERS: TOILET: TRANSFERS: TOILET - STEP 1: Does the patient require assistance with toilet transfers? Yes. TRANSFERS: TOILET - STEP 2: Does the patient require the assistance of a helper? Yes. TRANSFERS: TOILET - STEP 3: How much assistance does the patient require from the helper? Patient performs half or more of the tr ansferring tasks TRANSFERS: TOILET - STEP 4: Does the patient need only incidental help such as contact guard or steadying during toilet transfer? Yes. TRANSFERS: TOILET - SCORE: 4-MIN TRANSFERS: SHOWER: Activity did not occur on this shift TRANSFERS: SHOWER - SCORE: 0-UNK TRANSFERS: TUB: Activity did not occur on this shift TRANSFERS: TUB - SCORE: 0-UNK LOCOMOTION: WALK: Activity did not occur on this shift LOCOMOTION: WALK - SCORE: 0-UNK LOCOMOTION: WHEELCHAIR: Activity did not occur on this shift LOCOMOTION: WHEELCHAIR - SCORE: 0-UNK COMPREHENSION: COMPREHENSION: TYPE: Both COMPREHENSION - STEP 1: Does the patient require help to understand complex and abstract ideas (such as current events, finan renea, discharge planning, medical issues, relationships, etc)? No. COMPREHENSION - STEP 2: Does the patient need extra time, require an assistive device (such as glasses for visual comprehensi on or a hearing aid for auditory comprehension) or does s/he have mild difficulty understanding compl ex and abstract information? Yes. COMPREHENSION - SCORE: 6-JAYDE EXPRESSION EXPRESSION: TYPE: Both EXPRESSION - STEP 1: Does the patient require help expressing complex and abstract ideas (such as current events, finances , discharge planning, medical issues, relationships, etc)? No. EXPRESSION - STEP 2: Does the patient need extra time, require an assistive device (such as augmentive communication syste m or a communication board), OR does s/he have mild difficulty expressing complex and abstract ideas (including mild dysarthria or mild word-find problems)? No. EXPRESSION - SCORE: 7-IND SOCIAL INTERACTION: SOCIAL INTERACTION - STEP 1: Does the patient require a helper to interact with others in social and therapeutic situations? No. SOCIAL INTERACTION - STEP 2: Does the patient need extra time in social situations, OR does s/he interact with staff, other patien ts, and family members ONLY in structured environments, OR does s/he require medication for social in teraction? Yes, patient needs extra time SOCIAL INTERACTION - SCORE: 6-JAYDE PROBLEM SOLVING: PROBLEM SOLVING - STEP 1: Does the patient need help to solve complex problems such as managing a checking account or confronti ng interpersonal problems? No. PROBLEM SOLVING - STEP 2: Does the patient require extra time to make decisions or solve problems, OR does s/he have slight dif ficulty reading, initiating, or self-correcting in unfamiliar situations? Yes, patient needs extra ti me. PROBLEM SOLVING - SCORE: 6-JAYDE MEMORY: MEMORY - STEP 1: Does the patient need help to remember frequently encountered people, daily routines, and executing r equests? No. MEMORY - STEP 2: Does the patient have slight difficulty recognizing frequently encountered people, daily routines, or executing requests without the need for repetition or using self-initiated or environmental cues to remember? Yes. MEMORY - SCORE: 6-JAYDE SIGNATURE PANEL: The following modified sections: Eating - Score, Grooming - Score, Bathing - Score, Dressing - Upper Body - Score, Dressing - Lower Body - Score, Toileting - Score, Bladder Management - Score, Bowel Man agement - Score, Transfers: Bed, Chair, Wheelchair - Score, Transfers: Toilet - Score, Transfers: Pepper wer - Score, Transfers: Tub - Score, Locomotion: Walk - Score, Locomotion: Wheelchair - Score, Compre hension - Score, Expression - Score, Social Interaction - Score, Problem Solving - Score, Memory - Sc ore were [electronically] signed by Luis Banks on WedMar 22 2018 15:00:01 GMT-0500 (Central Daylight Time)
[2018-03-22] MEDS: CALCIUM CARBONATE CHEW 500MG TAB PO PRN (16:03)
--- NOTE | 2018-03-22 19:00 | R.PN ---
ENCOUNTER DATE AND TIME: 03/22/2018 18:57 (CDT) NAME VINCE [place] DATE OF : 1945 DATE OF ADMISSION: 03/11/2018 14:49 (CDT) right hip dislocationCHIEF COMPLAINT: Right hip dislocation SUBJECTIVE: Pt denied any Shortness of Breath. Pt denied any depression. Chest x-ray from 03-13-18 due to upper airway rhonchi shows no acute processes. EKG due to chest disco mfort done 03-14-18 is normal. Improved lower back pain after ambulating. Gabapentin dosage was increased, oxycodone was given. Lumb ar spine x-ray show no acute findings compared to 03-10-18. DJD noted. Ambulated 1250' with rolling walker with modified independence. Up and down 20 steps with modified in dependence. VITAL SIGNS Temperature: 97.8 F SBP/DBP: 125/47 Pulse: 72 Resp: 16 MEDICATION ALLERGIES: penicillins SULFA ENVIRONMENTAL ALLERGIES: - Substance Allergies None Known - Other Allergies None Known NURSING: - Shower allowing shower - Skin care per protocol PRECAUTIONS: - Weight Bearing Precaution WBAT right LE ACTIVITIES OOB only with supervision THERAPIES: - Occupational Therapy Evaluate and Treat. - Physical Therapy Evaluate and Treat. PHYSICAL EXAM - Gen Alert and awake Lying in bed No apparent distress Oriented to: person, time, and place - Skin No skin breakdown. Normacephalic - Eyes No abnormalities - ENMT No abnormalities - Neck No abnormalities - CVS RRR - Chest Clear - Abd Soft - GI Non distended No abnormalities - No abnormalities - Ext Mild bilateral lower extremity edema. - MSK Unremarkable - Neuro 4/5 strength bilaterally lower extremities. - Psych No abnormalities ASSESSMENT: Pt. is a 73 yo Right-handed white female.On 03/04/2018 she was admitted to [facility] with diagnosis right hip dislocation.Her impairment category is Orthopaedic Disorders 08 - Ot her Orthopaedic (08.9).Pre-morbidly, Pt. was independent/mod-I in Self-Care, Sphincter Control, Trans fers Control, Communication, Social Cognition, and Locomotion; and she had good Sphincter Control.Cur rently, she has deficits of Balance, Endurance, Safety Awareness, Transfers Control, Locomotion, and Self-Care.Pt. is now referred to [facility] for acute in-patient rehabilitatio n in order to maximize patient's functional independence in activities of daily living, strength, ROM , and mobility.- Rehab Goal Patient has realistic goal of being discharged at assistance level 6-Michael to reside at Home with Fam larry/Relatives. MDM/PLAN: - Physical Therapy Decreased range of motion - to improve, our physical therapists will perform initial evaluation of p t's status upon admission and devise an individualized program for increasing patient's Range of Emmanuel on. Gait dysfunction - to improve, our physical therapists will perform initial evaluation of pt's statu s upon admission and devise an individualized program for Gait Training, and Wheel Chair mobility Inability to transfer - to improve, our physical therapists will perform initial evaluation of pt's status upon admission and devise an individualized program for Bed mobility Need for home safety evaluation - to improve, our physical therapists will perform initial evaluatio n of pt's status upon admission and devise an individualized program for Home Evaluation Need in caregiver upon discharge - to improve, our physical therapists will perform initial evaluati on of pt's status upon admission and devise an individualized program for Caregiver Training New precaution - to improve, our physical therapists will perform initial evaluation of pt's status upon admission and devise an individualized program for Patient precaution education Edema - to improve, our physical therapists will perform initial evaluation of pt's status upon admi ssion and devise an individualized program for Elevation Training, and Lymphedema Therapy Poor balance - to improve, our physical therapists will perform initial evaluation of pt's status up on admission and devise an individualized program for Balance Training Poor endurance - to improve, our physical therapists will perform initial evaluation of pt's status upon admission and devise an individualized program for Endurance Training Weakness - to improve, our physical therapists will perform initial evaluation of pt's status upon a dmission and devise an individualized program for Aquatic Therapy, Neuromuscular Reeducation, and Str engthening Achieving independence - to improve, our physical therapists will perform initial evaluation of pt's status upon admission and devise an individualized program for Community Reintegration Activities - Occupational Therapy ADL deficits - to improve, our occupation therapists will perform initial evaluation of pt's status upon admission and devise an individualized program for Bathing, Bed mobility, Community Reintegratio n, Cooking, Dressing, Eating, Fine Motor Skills, Grooming, Homemaking, Kitchen Mobility, Laundry, Pat ient Education, Safety Awareness, Splinting - Positioning, Transfers(Toilet, Tub, Shower), and Wheel Chair Management Need for pharmacist critical care - to improve, our occupation therapists will perform initial evaluation of pt's status upon admission and devise an individualized program for Caregiver Training Weakness - to improve, our occupation therapists will perform initial evaluation of pt's status upon admission and devise an individualized program for Aquatic Therapy, Balance, Endurance, UE ROM, and UE strengthening - Diet Type Continue Regular - Diet - Liquid Texture Continue Regular - Tube Feed Continue N/A - Weight Bearing Precaution WBAT right LE - Skin care per protocol - Diet - Solid Texture Continue Regular - Shower allowing shower FUNCTIONAL STATUS: UPDATED AT WEEKLY TEAM CONFERENCE - Bladder Same accident frequency: 7-Ind - No accidents in the past 7 days - Bowel Same accident frequency: 7-Ind - No accidents in the past 7 days - Walking Same score based on distance walked: 0(N/A) - Wheelchair Same score based on distance traveled: 0(N/A) FUNCTIONAL STATUS: - Self-Care A. Eating Ind B. Grooming sup C. Bathing Yumkio D. Dressing - Upper sup E. Dressing - Lower modA F. Toileting modA - Sphincter Control G: Bladder control Ind H: Bowel control Ind - Transfers Control I. Bed/Chair/Wheelchair Yumiko J. Toilet Yumiko K. Tub/Shower Yumiko - Locomotion L. Walk/Wheelchair (B) modA M. Stairs ADNO - Communication N. Comprehension (B) Michael O. Expression (B) Michael - Social Cognition P. Social Interaction Michael Q. Problem Solving Michael R. Memory Michael - Endurance Fair - Balance Fair - Safety Awareness Poor CURRENT FUNC. DEFICITS: Balance, Endurance, Safety Awareness, Transfers Control, Locomotion, and Self-Care SIGNATURE PANEL: (CDT)
[2018-03-22] MEDS: ATORVASTATIN 10 MG TAB PO SCH (20:15)
[2018-03-22] MEDS: PANTOPRAZOLE 40MG TABLET PO SCH (20:15)
[2018-03-22] MEDS: LORAZEPAM 0.5 MG TABLET PO SCH (20:15)
[2018-03-23] MEDS: AMLODIPINE 5 MG TAB PO SCH (08:00)
[2018-03-23] MEDS: FE SULF/FA/VIT B COMP & C TAB PO SCH (08:00)
[2018-03-23] MEDS: CRANBERRY FRUIT EXTRACT 200 MG CAP PO SCH ×2 (08:00→21:00)
[2018-03-23] MEDS: PROMOD 30 ML DOSE PO SCH ×2 (08:00→20:00)
[2018-03-23] MEDS: predniSONE 10 MG TAB PO SCH (08:40)
[2018-03-23] MEDS: FERROUS SULFATE 325 MG TAB PO SCH (08:40)
[2018-03-23] MEDS: GABAPENTIN 300 MG CAP PO SCH ×2 (08:40→21:00)
[2018-03-23] MEDS: APIXABAN 2.5 MG TABLET PO SCH ×2 (08:41→21:00)
[2018-03-23] MEDS: DULERA 100/5 (MOMETASONE/FORMOTEROL) INHALER IH SCH ×2 (08:41→20:00)
[2018-03-23] MEDS: FLUOXETINE 20 MG CAP PO SCH (08:41)
[2018-03-23] MEDS: ALBUTEROL INHALER 60 PUFF/8 GM IH SCH (08:43)
[2018-03-23] MEDS: ONDANSETRON 4 MG (ODT) TAB PO PRN ×3 (09:39→20:58)
[2018-03-23] MEDS: LOPERAMIDE HCL 2 MG CAPSULE PO PRN (10:53)
[2018-03-23] MEDS: MAGNES/ALUMIN/SIMET 30ML UCUP PO PRN (12:22)
[2018-03-23] MEDS ORDERED: LORAZEPAM 0.5 MG TABLET PO PRN (14:03)
--- NOTE | 2018-03-23 15:00 | RAD REPORT ---
EXAM DESCRIPTION: CT - Abdomen Pelvis Wo Contrast - 03/23/2018 2:45 pm CLINICAL HISTORY: Abdominal pain diarrhea COMPARISON: None TECHNIQUE: Computed axial tomography of the abdomen and pelvis was obtained. IV and oral contrast we re not requested. All CT scans are performed using dose optimization technique as appropriate and may include automated exposure control or mA/KV adjustment according to patient size. FINDINGS: The evaluation of solid organs, vessels and bowel is limited secondary to the lack of con trast administration. The gallbladder has been removed. Mild dilatation of the intrahepatic biliary tree is seen. The commo n bile duct is dilated. The liver, spleen, pancreas, and adrenals appear grossly normal. A 19 millimeter low-density mass extending off the right kidney is nonspecific without IV contrast bu t probably represents a cyst. The left kidney is grossly normal. A small umbilical hernia contains fat. A small hiatal hernia is seen Fluid is present throughout nondilated colon. Mild dilatation of jejunum is present. The ileum is decompressed. There is no evidence of diverticulitis. Atherosclerotic changes involve the arteries IMPRESSION: Prominence of the biliary tree can be a normal finding in this patient status post makenna cystectomy. Pathology such as a stricture can also result in this appearance and should be correlated clinically with appropriate lab values Mild dilatation of jejunum with decompression of the ileum. This probably represents an ileus or ente ritis. A partial small bowel obstruction although possible is considered less likely. If the patient' s symptoms persist followup plain film series would be recommended
[2018-03-23] MEDS: HYDROCODONE/APAP 5/325 MG TAB PO PRN ×2 (15:12→21:44)
[2018-03-23 15:27] LABS: Absolute Lymphocytes (CBC) 0.9 K/uL (0.7-4.9); Absolute Monocytes 0.4 K/uL (0.1-1.3); Absolute Neutrophil 15.8 K/uL (1.8-8.0); Eosinophils % 0.1 % (0-4.4); Hematocrit 37.4 % (36.0-45.0); Lymphocytes % 5.3 % (15.3-44.8); MCH 26.3 pg (27.0-35.0); MCV 83.2 fL (80-100); MPV 8.3 fL (7.6-11.3); Monocytes % 2.2 % (3.3-12.3); RBC Red Blood Cell Count 4.49 M/uL (3.86-4.86)
[2018-03-23 15:55] LABS: Albumin 3.3 g/dL (3.4-5.0); Bilirubin Direct 0.1 mg/dL (0-0.2); Bilirubin Total 0.4 mg/dL (0.2-1.0); Magnesium 2.3 mg/dL (1.8-2.4); Potassium 5.1 mmol/L (3.5-5.1); Protein, Total 7.8 g/dL (6.4-8.2)
[2018-03-23 16:11] LABS: Blood Morphology Comment NOT SEEN (NOT SEEN); Platelet Estimate INCR; Urine White Blood Cell Casts OK
[2018-03-23] MEDS: ATORVASTATIN 10 MG TAB PO SCH (21:00)
[2018-03-23] MEDS ORDERED: levoFLOXacin 500 MG TAB PO ONE (21:00)
[2018-03-23] MEDS: PANTOPRAZOLE 40MG TABLET PO SCH (21:01)
[2018-03-23] MEDS: metroNIDAZOLE 500 MG TABLET PO SCH (21:45)
--- NOTE | 2018-03-23 22:03 | RAD REPORT ---
EXAM DESCRIPTION: Alfonso Single View03/23/2018 9:36 pm CLINICAL HISTORY: Chest pain COMPARISON: 03/13/2018 FINDINGS: The lungs appear clear of acute infiltrate. The heart is normal size IMPRESSION: No acute abnormalities displayed
[2018-03-24] MEDS: ONDANSETRON 4 MG (ODT) TAB PO PRN (00:49)
[2018-03-24] MEDS ORDERED: PIPER/TAZO/NS 3.375gm 3.375 GM/100 ML BAG IVPB SCH (01:00)
[2018-03-24] MEDS: HYDROCODONE/APAP 5/325 MG TAB PO PRN (02:37)
[2018-03-24] MEDS: LOPERAMIDE HCL 2 MG CAPSULE PO PRN (02:38)
[2018-03-24 06:59] LABS: Absolute Lymphocytes (CBC) 0.9 K/uL (0.7-4.9); Absolute Monocytes 0.7 K/uL (0.1-1.3); Absolute Neutrophil 16.6 K/uL (1.8-8.0); Basophils % 0.6 % (0-1.3); Eosinophils % 0.5 % (0-4.4); Hematocrit 37.2 % (36.0-45.0); Lymphocytes % 4.8 % (15.3-44.8); MCH 26.6 pg (27.0-35.0); MCV 82.2 fL (80-100); MPV 8.4 fL (7.6-11.3); Monocytes % 3.9 % (3.3-12.3); RBC Red Blood Cell Count 4.52 M/uL (3.86-4.86)
[2018-03-24] MEDS ORDERED: PANTOPRAZOLE 40MG TABLET PO SCH (08:00)
[2018-03-24] MEDS ORDERED: levoFLOXacin 250 MG TAB PO SCH (08:00)
[2018-03-24] MEDS: APIXABAN 2.5 MG TABLET PO SCH (08:00)
[2018-03-24] MEDS: GABAPENTIN 300 MG CAP PO SCH ×2 (08:00→19:22)
[2018-03-24] MEDS: FLUOXETINE 20 MG CAP PO SCH (08:00)
[2018-03-24] MEDS: FERROUS SULFATE 325 MG TAB PO SCH (08:00)
[2018-03-24] MEDS: PROMOD 30 ML DOSE PO SCH ×2 (08:00→19:22)
[2018-03-24] MEDS ORDERED: metroNIDAZOLE 500 MG TABLET PO SCH (08:00)
[2018-03-24] MEDS: AMLODIPINE 5 MG TAB PO SCH (08:00)
[2018-03-24] MEDS: predniSONE 10 MG TAB PO SCH (08:00)
[2018-03-24] MEDS: CRANBERRY FRUIT EXTRACT 200 MG CAP PO SCH ×2 (08:00→19:21)
[2018-03-24] MEDS: FE SULF/FA/VIT B COMP & C TAB PO SCH (08:00)
[2018-03-24] MEDS ORDERED: SODIUM CHLORIDE 0.9% 10ML INJ IV PRN (08:46)
[2018-03-24] MEDS ORDERED: ONDANSETRON 4 MG/2 ML VIAL IV PRN (08:46)
[2018-03-24] MEDS: metroNIDAZOLE 500 MG TABLET PO SCH (09:00)
[2018-03-24] MEDS: NA CHLORIDE 0.9% 1,000 ML IV SCH ×3 (09:53→23:03)
[2018-03-24] MEDS ORDERED: MORPHINE 2 MG/ML SYR IM ONE (10:38)
[2018-03-24] MEDS: ALBUTEROL INHALER 60 PUFF/8 GM IH SCH (11:41)
[2018-03-24] MEDS: DULERA 100/5 (MOMETASONE/FORMOTEROL) INHALER IH SCH ×2 (11:41→21:00)
[2018-03-24] MEDS: CIPROFLOXACIN 400mg IV 400 MG/200 ML BAG IV SCH ×2 (11:42→20:59)
--- NOTE | 2018-03-24 14:07 | RAD REPORT ---
EXAM DESCRIPTION: RAD - Abdomen Acute Series - 03/24/2018 2:00 pm CLINICAL HISTORY: abd pain COMPARISON: Chest Single View dated 03/23/2018; Chest Single View dated 03/13/2018; Abdomen Pelvis W o Contrast dated 03/23/2018 FINDINGS: Emphysematous changes are present throughout the lungs. The heart is upper limit normal si ze. Left total shoulder arthroplasty seen. No fracture seen. Moderate levoscoliosis of the lumbar spine is present. Right total knee arthroplasty is noted. Cholec ystectomy clips are seen. No bowel obstruction or free air suspected. IMPRESSION: No acute finding demonstrated.
--- NOTE | 2018-03-24 15:00 | FAST ---
SHIFT START DATE/TIME: 03/24/2018 07:00 (CDT) SHIFT END DATE/TIME: 03/24/2018 19:00 (CDT) NAME VINCE [place] DATE OF : 1945 DATE OF ADMISSION: 03/11/2018 14:49 (CDT) PHONE: AGE: 73 SSN# [id number] GENDER: Female ENCOUNTER PHYSICIAN: Dr. Richi Fitzgerald M.D. ADMISSION DIAGNOSIS: - Orthopaedic Disorders 08 - Other Orthopaedic (08.9) right hip dislocation. EATING: EATING - STEP 1: Does the patient require assistance when eating? Yes. EATING - STEP 2: Does the patient require the assistance of a helper? Yes. EATING - STEP 3: Does the patient perform half or more of the eating tasks? Yes. EATING - STEP 4: Does the patient need only supervision, cuing, coaxing OR help to apply an orthosis OR help to cut fo od, open containers, pour liquids, or butter bread? Yes. EATING - SCORE: 5-SUP GROOMING: Activity did not occur on this shift GROOMING - SCORE: 0-UNK BATHING: Activity did not occur on this shift BATHING - SCORE: 0-UNK DRESSING - UPPER BODY: Activity did not occur on this shift ARTICLES SCORE Total number of steps: 0 DRESSING - UPPER BODY - SCORE: 0-UNK DRESSING - LOWER BODY: Activity did not occur on this shift ARTICLES SCORE Total number of steps: 0 DRESSING - LOWER BODY - SCORE: 0-UNK TOILETING: TOILETING - STEP 1: Does the patient require assistance with toileting? Yes. TOILETING - STEP 2: Does the patient require the assistance of a helper? Yes. TOILETING - STEP 3: How much assistance does the patient require from the helper? Only supervision TOILETING - SCORE: 5-SUP BLADDER MANAGEMENT: BLADDER MANAGEMENT - STEP 1: Does the patient control the bladder completely and intentionally without equipment or devices or med ications, and is always continent? No. BLADDER MANAGEMENT - STEP 2: Does the patient require the assistance of a helper? Yes. BLADDER MANAGEMENT - STEP 3: How much assistance does the patient require from the helper? Only supervision, stand-by, cuing, or c oaxing BLADDER MANAGEMENT - SCORE: 5-SUP BLADDER MANAGEMENT - FREQUENCY OF ACCIDENTS: BLADDER MANAGEMENT(FA) - STEP 1: How many accidents has the patient had during the current shift? 0 BOWEL MANAGEMENT: Activity did not occur on this shift BOWEL MANAGEMENT - SCORE: 7-IND BOWEL MANAGEMENT - FREQUENCY OF ACCIDENTS: BOWEL MANAGEMENT(FA) - STEP 1: How many accidents has the patient had during the current shift? 0 TRANSFERS: BED, CHAIR, WHEELCHAIR: TRANSFERS: BED, CHAIR, WHEELCHAIR - STEP 1: Does the patient require assistance with bed, chair, or wheelchair transfers? Yes. TRANSFERS: BED, CHAIR, WHEELCHAIR - STEP 2: Does the patient require the assistance of a helper? Yes. TRANSFERS: BED, CHAIR, WHEELCHAIR - STEP 3: How much assistance does the patient require from the helper? Only supervision TRANSFERS: BED, CHAIR, WHEELCHAIR - SCORE: 5-SUP TRANSFERS: TOILET: TRANSFERS: TOILET - STEP 1: Does the patient require assistance with toilet transfers? Yes. TRANSFERS: TOILET - STEP 2: Does the patient require the assistance of a helper? Yes. TRANSFERS: TOILET - STEP 3: How much assistance does the patient require from the helper? Only supervision, cuing, coaxing, OR he lp to set out transfer equipment or to lock brakes and/or lift foot rests TRANSFERS: TOILET - SCORE: 5-SUP TRANSFERS: SHOWER: Activity did not occur on this shift TRANSFERS: SHOWER - SCORE: 0-UNK TRANSFERS: TUB: Activity did not occur on this shift TRANSFERS: TUB - SCORE: 0-UNK LOCOMOTION: WALK: Activity did not occur on this shift LOCOMOTION: WALK - SCORE: 0-UNK LOCOMOTION: WHEELCHAIR: Activity did not occur on this shift LOCOMOTION: WHEELCHAIR - SCORE: 0-UNK COMPREHENSION: COMPREHENSION: TYPE: Both COMPREHENSION - STEP 1: Does the patient require help to understand complex and abstract ideas (such as current events, finan renea, discharge planning, medical issues, relationships, etc)? No. COMPREHENSION - STEP 2: Does the patient need extra time, require an assistive device (such as glasses for visual comprehensi on or a hearing aid for auditory comprehension) or does s/he have mild difficulty understanding compl ex and abstract information? Yes. COMPREHENSION - SCORE: 6-JAYDE EXPRESSION EXPRESSION: TYPE: Both EXPRESSION - STEP 1: Does the patient require help expressing complex and abstract ideas (such as current events, finances , discharge planning, medical issues, relationships, etc)? No. EXPRESSION - STEP 2: Does the patient need extra time, require an assistive device (such as augmentive communication syste m or a communication board), OR does s/he have mild difficulty expressing complex and abstract ideas (including mild dysarthria or mild word-find problems)? Yes. EXPRESSION - SCORE: 6-JAYDE SOCIAL INTERACTION: SOCIAL INTERACTION - STEP 1: Does the patient require a helper to interact with others in social and therapeutic situations? No. SOCIAL INTERACTION - STEP 2: Does the patient need extra time in social situations, OR does s/he interact with staff, other patien ts, and family members ONLY in structured environments, OR does s/he require medication for social in teraction? Yes, patient needs extra time SOCIAL INTERACTION - SCORE: 6-JAYDE PROBLEM SOLVING: PROBLEM SOLVING - STEP 1: Does the patient need help to solve complex problems such as managing a checking account or confronti ng interpersonal problems? Yes. PROBLEM SOLVING - STEP 2: Does the patient solve basic routine problems half or more of the time? Yes. PROBLEM SOLVING - STEP 3: How often does the patient need help to solve basic routine problems? Less than 10% of the time PROBLEM SOLVING - SCORE: 5-SUP MEMORY: MEMORY - STEP 1: Does the patient need help to remember frequently encountered people, daily routines, and executing r equests? No. MEMORY - STEP 2: Does the patient have slight difficulty recognizing frequently encountered people, daily routines, or executing requests without the need for repetition or using self-initiated or environmental cues to remember? Yes. MEMORY - SCORE: 6-JAYDE SIGNATURE PANEL: The following modified sections: Eating - Score, Grooming - Score, Bathing - Score, Dressing - Upper Body - Score, Dressing - Lower Body - Score, Toileting - Score, Bladder Management - Score, Bowel Man agement - Score, Transfers: Bed, Chair, Wheelchair - Score, Transfers: Toilet - Score, Transfers: Pepper wer - Score, Transfers: Tub - Score, Locomotion: Walk - Score, Locomotion: Wheelchair - Score, Compre hension - Score, Expression - Score, Social Interaction - Score, Problem Solving - Score, Memory - Sc ore were [electronically] signed by Josie Spencer C.N.A. on WedMar 24 2018 14:59:41 GMT-0500 (Centra l Daylight Time)
--- NOTE | 2018-03-24 16:06 | CON ---
Date of Consultation: 03/24/2018 Reason For Consultation: Abdominal pain. Code Status: Full. Chief Complaint: Abdominal pain. History Of Present Illness: The patient is a 73-year-old female with past medical history of COPD, TIA, dyslipidemia, hypertension, depression, who was admitted to [facility] on 03/04/[address] with right hip dislocation. Dr. Hager performed hip surgery. The patient was then referred to rehab for physical therapy and strengthening. The patient has been doing well. However, the day prior to consultation, the patient started having some abdominal pain, nausea, and vomiting. She did report eating some cottage cheese and felt significant crampy type of pain afterwards. The patient also reports some diarrhea, C diff was checked which was negative. She did have urine culture growing out Klebsiella pneumoniae. Her blood cultures currently are pending. The patient had a CT scan of the abdomen done, which showed enteritis, mild dilatation of jejunum with decompression of ileum representing possible ileus or even partial small-bowel obstruction. The patient's chest x-ray was clear. The patient's symptoms are constant, moderate, and progressively worsening. Worse with food intake. Therefore, consultation was called for abdominal pain. When seen, the patient was awake, alert, oriented x3, in some moderate amount of pain, asking for pain medication. Past Medical History: COPD, TIA, dyslipidemia, hypertension, depression. Past Surgical History: Recent total hip arthroplasty on the left, recent right hip surgery, laparoscopic appendectomy, cholecystectomy, , left shoulder replacement, bilateral knee replacements with recurrent replacement on the right. Allergies: TO PENICILLIN AND TO SULFA. Social History: The patient currently in rehab, has good social support, has 2 daughters. Quit smoking in 2012. No alcohol use or illicit drug use. Family History: Mother of complications from bowel obstruction. Review of Systems: Negative except as above. Medications: List reviewed. Physical Examination: Vital Signs: Temperature 97.4, heart rate 82, blood pressure 141/62, respirations 18, O2 95% on room air. General: Awake, alert, oriented x3. Some moderate distress due to pain. Elderly female, ill-appearing, obese. CV: S1, S2. Regular rate and rhythm. Peripheral pulses present. Respiratory: Moving air well bilaterally. No wheezing or stridor. No use of accessory muscles. Gastrointestinal: Abdomen is soft. Tenderness to palpation. No guarding or rigidity. Hyperactive bowel sounds. No hepatomegaly. Extremities: No clubbing, cyanosis, or edema. No calf tenderness. Neuro: Cranial nerves 2 through 12 intact grossly. No focal neurological deficit. Speech is normal. Skin: No rashes. Normal skin turgor. Psych: Mood is anxious. Affect is congruent with mood. Insight and judgment fair. Laboratory Data: Sodium 138, potassium 4, chloride 106, CO2 23, creatinine 1.3 , glucose 137, calcium 8.7, procalcitonin 0.5. WBC 18.4, H and H 12 and 37.2, platelet 543, neutrophils 90%. Urine culture growing out Klebsiella pneumonia, essentially pansensitive except to ampicillin and nitrofurantoin. Clostridium difficile test is negative. Blood cultures pending. CT scan of the abdomen shows prominence of the biliary tree can be a normal finding in this patient, status post cholecystectomy. Pathology such as stricture could also be left in appearance and should be correlated clinically with appropriate lab values. Mild deviation of jejunum with decompression of the ileum, this probably representing ileus or enteritis. Partial small bowel obstruction although possible is considered less likely. plain film series would be recommended. Assessment And Plan: A 73-year-old female with: 1. Generalized abdominal pain, likely secondary to ileus and enteritis. We will rule out small bowel obstruction. We will obtain abdominal series x-ray. CT scan personally reviewed. We will start on IV pain medications and IV fluids. Keep n.p.o. Continue antibiotics. The patient does have history of multiple previous abdominal surgeries and likely has adhesions possibly causing small bowel obstruction. We will hold off on NG tube, this patient has not vomited since this morning. May need to place NG tube in, referred to Surgery if conservative measures fail, for now bowel rest. 2. Possible ileus or enteritis. Clostridium difficile has been negative. We will start on prophylactic antibiotics with Cipro and Flagyl IV. We will monitor blood cultures. Ova and parasites pending. 3. Chronic obstructive pulmonary disease, chronic bronchitis, non-oxygen dependent. We will continue with nebulizer treatments as needed. 4. Essential hypertension, stable. 5. Recent right hip surgery, currently undergoing rehab. We will switch Eliquis to Lovenox subcu as patient is n.p.o. 6. History of transient ischemic attack. 7. Dyslipidemia, stable. 8. Major depressive disorder, moderate. We will hold SSRI for now. 9. Obesity, BMI 38.3. 10. Gastrointestinal and deep venous thrombosis prophylaxis with Lovenox and PPI. Plan: Follow up on blood cultures and acute abdominal series. Urine culture growing Klebsiella pneumonia has been treated previously, this is from 2017. Thank you for the consultation. We will follow along closely. ROCK Voice ID: [id number] Report ID: [id number]
[2018-03-24] MEDS ORDERED: ENOXAPARIN 40 MG/0.4 ML SQ SCH (17:00)
[2018-03-24] MEDS: METRONIDAZOLE 500mg IVPB 500 MG/100 ML BAG IV SCH (17:17)
[2018-03-24] MEDS: MORPHINE 2 MG/ML SYR IV PRN (17:30)
--- NOTE | 2018-03-24 19:00 | R.PN ---
ENCOUNTER DATE AND TIME: 03/24/2018 18:54 (CDT) NAME VINCE [place] DATE OF : 1945 DATE OF ADMISSION: 03/11/2018 14:49 (CDT) right hip dislocationCHIEF COMPLAINT: Right hip dislocation SUBJECTIVE: Pt denied any Shortness of Breath. Pt denied any depression. Chest x-ray from 03-13-18 due to upper airway rhonchi shows no acute processes. EKG due to chest disco mfort done 03-14-18 is normal. Improved lower back pain after ambulating. Gabapentin dosage was increased, oxycodone was given. Lumb ar spine x-ray show no acute findings compared to 03-10-18. DJD noted. Prominence of biliary tree and ileus or enteritis. Ambulated 260' with contact guard assistance using a rolling walker. Propelled wheelchair 250' with s tandby assistance. Speech expression and comprehension is at modified independence. Toilet and tub tr ansfer with modified independence. VITAL SIGNS Temperature: 97.8 F SBP/DBP: 141/62 Pulse: 82 Resp: 16 MEDICATION ALLERGIES: penicillins SULFA ENVIRONMENTAL ALLERGIES: - Substance Allergies None Known - Other Allergies None Known NURSING: - Shower allowing shower - Skin care per protocol PRECAUTIONS: - Weight Bearing Precaution WBAT right LE ACTIVITIES OOB only with supervision THERAPIES: - Occupational Therapy Evaluate and Treat. - Physical Therapy Evaluate and Treat. PHYSICAL EXAM - Gen Alert and awake Lying in bed No apparent distress Oriented to: person, time, and place - Skin No skin breakdown. Normacephalic - Eyes No abnormalities - ENMT No abnormalities - Neck No abnormalities - CVS RRR - Chest Clear - Abd Soft - GI Non distended No abnormalities - No abnormalities - Ext Mild bilateral lower extremity edema. - MSK Unremarkable - Neuro 4/5 strength bilaterally lower extremities. - Psych No abnormalities ASSESSMENT: Pt. is a 73 yo Right-handed white female.On 03/04/[address] [facility] with diagnosis right hip dislocation.Her impairment category is Orthopaedic Disorders 08 - Ot her Orthopaedic (08.9).Pre-morbidly, Pt. was independent/mod-I in Self-Care, Sphincter Control, Trans fers Control, Communication, Social Cognition, and Locomotion; and she had good Sphincter Control.Cur rently, she has deficits of Balance, Endurance, Safety Awareness, Transfers Control, Locomotion, and Self-Care.Pt. is now referred to [facility] for acute in-patient rehabilitatio n in order to maximize patient's functional independence in activities of daily living, strength, ROM , and mobility.- Rehab Goal Patient has realistic goal of being discharged at assistance level 6-Michael to reside at Home with Fam larry/Relatives. MDM/PLAN: - Physical Therapy Decreased range of motion - to improve, our physical therapists will perform initial evaluation of p t's status upon admission and devise an individualized program for increasing patient's Range of Emmanuel on. Gait dysfunction - to improve, our physical therapists will perform initial evaluation of pt's statu s upon admission and devise an individualized program for Gait Training, and Wheel Chair mobility Inability to transfer - to improve, our physical therapists will perform initial evaluation of pt's status upon admission and devise an individualized program for Bed mobility Need for home safety evaluation - to improve, our physical therapists will perform initial evaluatio n of pt's status upon admission and devise an individualized program for Home Evaluation Need in caregiver upon discharge - to improve, our physical therapists will perform initial evaluati on of pt's status upon admission and devise an individualized program for Caregiver Training New precaution - to improve, our physical therapists will perform initial evaluation of pt's status upon admission and devise an individualized program for Patient precaution education Edema - to improve, our physical therapists will perform initial evaluation of pt's status upon admi ssion and devise an individualized program for Elevation Training, and Lymphedema Therapy Poor balance - to improve, our physical therapists will perform initial evaluation of pt's status up on admission and devise an individualized program for Balance Training Poor endurance - to improve, our physical therapists will perform initial evaluation of pt's status upon admission and devise an individualized program for Endurance Training Weakness - to improve, our physical therapists will perform initial evaluation of pt's status upon a dmission and devise an individualized program for Aquatic Therapy, Neuromuscular Reeducation, and Str engthening Achieving independence - to improve, our physical therapists will perform initial evaluation of pt's status upon admission and devise an individualized program for Community Reintegration Activities - Occupational Therapy ADL deficits - to improve, our occupation therapists will perform initial evaluation of pt's status upon admission and devise an individualized program for Bathing, Bed mobility, Community Reintegratio n, Cooking, Dressing, Eating, Fine Motor Skills, Grooming, Homemaking, Kitchen Mobility, Laundry, Pat ient Education, Safety Awareness, Splinting - Positioning, Transfers(Toilet, Tub, Shower), and Wheel Chair Management Need for memory care director - to improve, our occupation therapists will perform initial evaluation of pt's status upon admission and devise an individualized program for Caregiver Training Weakness - to improve, our occupation therapists will perform initial evaluation of pt's status upon admission and devise an individualized program for Aquatic Therapy, Balance, Endurance, UE ROM, and UE strengthening - Diet Type Continue Regular - Diet - Liquid Texture Continue Regular - Tube Feed Continue N/A - Weight Bearing Precaution WBAT right LE - Skin care per protocol - Diet - Solid Texture Continue Regular - Shower allowing shower FUNCTIONAL STATUS: UPDATED AT WEEKLY TEAM CONFERENCE - Bladder Same accident frequency: 7-Ind - No accidents in the past 7 days - Bowel Same accident frequency: 7-Ind - No accidents in the past 7 days - Walking Same score based on distance walked: 0(N/A) - Wheelchair Same score based on distance traveled: 0(N/A) FUNCTIONAL STATUS: - Self-Care A. Eating Ind B. Grooming sup C. Bathing Yumiko D. Dressing - Upper sup E. Dressing - Lower modA F. Toileting modA - Sphincter Control G: Bladder control Ind H: Bowel control Ind - Transfers Control I. Bed/Chair/Wheelchair Yumiko J. Toilet Yumiko K. Tub/Shower Yumiko - Locomotion L. Walk/Wheelchair (B) modA M. Stairs ADNO - Communication N. Comprehension (B) Michael O. Expression (B) Michael - Social Cognition P. Social Interaction Michael Q. Problem Solving Michael R. Memory Michael - Endurance Fair - Balance Fair - Safety Awareness Poor CURRENT FUNC. DEFICITS: Balance, Endurance, Safety Awareness, Transfers Control, Locomotion, and Self-Care SIGNATURE PANEL: (CDT)
[2018-03-24] MEDS: ATORVASTATIN 10 MG TAB PO SCH (19:22)
[2018-03-25] MEDS: METRONIDAZOLE 500mg IVPB 500 MG/100 ML BAG IV SCH ×2 (00:27→09:00)
[2018-03-25] MEDS: MORPHINE 2 MG/ML SYR IV PRN ×2 (01:25→08:00)
--- NOTE | 2018-03-25 01:38 | FAST ---
SHIFT START DATE/TIME: 03/24/2018 19:00 (CDT) SHIFT END DATE/TIME: 03/25/2018 07:00 (CDT) NAME VINCE [place] DATE OF : 1945 DATE OF ADMISSION: 03/11/2018 14:49 (CDT) PHONE: AGE: 73 SSN# [id number] GENDER: Female ENCOUNTER PHYSICIAN: Dr. Richi Fitzgerald M.D. ADMISSION DIAGNOSIS: - Orthopaedic Disorders 08 - Other Orthopaedic (08.9) right hip dislocation. EATING: Activity did not occur on this shift EATING - SCORE: 0-UNK GROOMING: Activity did not occur on this shift GROOMING - SCORE: 0-UNK BATHING: Activity did not occur on this shift BATHING - SCORE: 0-UNK DRESSING - UPPER BODY: Patient is not dressing in public clothing ARTICLES SCORE Total number of steps: 0 DRESSING - UPPER BODY - SCORE: 0-UNK DRESSING - LOWER BODY: Patient is not dressing in public clothing ARTICLES SCORE Total number of steps: 0 DRESSING - LOWER BODY - SCORE: 0-UNK TOILETING: Activity did not occur on this shift TOILETING - SCORE: 0-UNK BLADDER MANAGEMENT: [place] removes incontinent device (Depends, pull ups, etc.); cleans the patient after accident / inco ntinent episode; and, applies new incontinent device. BLADDER MANAGEMENT - SCORE: 1-DEP BLADDER MANAGEMENT - FREQUENCY OF ACCIDENTS: BLADDER MANAGEMENT(FA) - STEP 1: How many accidents has the patient had during the current shift? 1 BOWEL MANAGEMENT: Activity did not occur on this shift BOWEL MANAGEMENT - SCORE: 7-IND TRANSFERS: BED, CHAIR, WHEELCHAIR: Activity did not occur on this shift TRANSFERS: BED, CHAIR, WHEELCHAIR - SCORE: 0-UNK TRANSFERS: TOILET: Activity did not occur on this shift TRANSFERS: TOILET - SCORE: 0-UNK TRANSFERS: SHOWER: Activity did not occur on this shift TRANSFERS: SHOWER - SCORE: 0-UNK TRANSFERS: TUB: Activity did not occur on this shift TRANSFERS: TUB - SCORE: 0-UNK LOCOMOTION: WALK: Activity did not occur on this shift LOCOMOTION: WALK - SCORE: 0-UNK LOCOMOTION: WHEELCHAIR: Activity did not occur on this shift LOCOMOTION: WHEELCHAIR - SCORE: 0-UNK COMPREHENSION: COMPREHENSION: TYPE: Both COMPREHENSION - STEP 1: Does the patient require help to understand complex and abstract ideas (such as current events, finan renea, discharge planning, medical issues, relationships, etc)? No. COMPREHENSION - STEP 2: Does the patient need extra time, require an assistive device (such as glasses for visual comprehensi on or a hearing aid for auditory comprehension) or does s/he have mild difficulty understanding compl ex and abstract information? Yes. COMPREHENSION - SCORE: 6-JAYDE EXPRESSION EXPRESSION: TYPE: Both EXPRESSION - STEP 1: Does the patient require help expressing complex and abstract ideas (such as current events, finances , discharge planning, medical issues, relationships, etc)? No. EXPRESSION - STEP 2: Does the patient need extra time, require an assistive device (such as augmentive communication syste m or a communication board), OR does s/he have mild difficulty expressing complex and abstract ideas (including mild dysarthria or mild word-find problems)? Yes. EXPRESSION - SCORE: 6-JAYDE SOCIAL INTERACTION: SOCIAL INTERACTION - STEP 1: Does the patient require a helper to interact with others in social and therapeutic situations? No. SOCIAL INTERACTION - STEP 2: Does the patient need extra time in social situations, OR does s/he interact with staff, other patien ts, and family members ONLY in structured environments, OR does s/he require medication for social in teraction? Yes, patient needs extra time SOCIAL INTERACTION - SCORE: 6-JAYDE PROBLEM SOLVING: PROBLEM SOLVING - STEP 1: Does the patient need help to solve complex problems such as managing a checking account or confronti ng interpersonal problems? No. PROBLEM SOLVING - STEP 2: Does the patient require extra time to make decisions or solve problems, OR does s/he have slight dif ficulty reading, initiating, or self-correcting in unfamiliar situations? Yes, patient needs extra ti me. PROBLEM SOLVING - SCORE: 6-JAYDE MEMORY: MEMORY - STEP 1: Does the patient need help to remember frequently encountered people, daily routines, and executing r equests? No. MEMORY - STEP 2: Does the patient have slight difficulty recognizing frequently encountered people, daily routines, or executing requests without the need for repetition or using self-initiated or environmental cues to remember? Yes. MEMORY - SCORE: 6-JAYDE SIGNATURE PANEL: The following modified sections: Eating - Score, Grooming - Score, Dressing - Upper Body - Score, Salomon ssing - Lower Body - Score, Toileting - Score, Bladder Management - Score, Bowel Management - Score, Transfers: Bed, Chair, Wheelchair - Score, Transfers: Toilet - Score, Transfers: Shower - Score, Javier sfers: Tub - Score, Locomotion: Walk - Score, Locomotion: Wheelchair - Score, Comprehension - Score, Expression - Score, Social Interaction - Score, Problem Solving - Score, Memory - Score were [electro nically] signed by Anu Orosco CNA on WedMar 25 2018 01:38:04 GMT-0500 (Central Daylight Time)
[2018-03-25 06:32] LABS: Potassium 3.8 mmol/L (3.5-5.1)
[2018-03-25 06:34] LABS: Absolute Lymphocytes (CBC) 1.2 K/uL (0.7-4.9); Absolute Monocytes 0.3 K/uL (0.1-1.3); Absolute Neutrophil 5.1 K/uL (1.8-8.0); Basophils % 0.6 % (0-1.3); Eosinophils % 7.4 % (0-4.4); Hematocrit 44.4 % (36.0-45.0); Lymphocytes % 16.1 % (15.3-44.8); MCH 26.4 pg (27.0-35.0); MCV 82.7 fL (80-100); MPV 8.3 fL (7.6-11.3); Monocytes % 4.6 % (3.3-12.3); RBC Red Blood Cell Count 5.37 M/uL (3.86-4.86)
[2018-03-25] MEDS: DULERA 100/5 (MOMETASONE/FORMOTEROL) INHALER IH SCH ×2 (07:31→21:06)
[2018-03-25] MEDS: ALBUTEROL INHALER 60 PUFF/8 GM IH SCH (07:32)
[2018-03-25] MEDS: GABAPENTIN 300 MG CAP PO SCH ×2 (07:32→21:06)
[2018-03-25] MEDS: FE SULF/FA/VIT B COMP & C TAB PO SCH (07:32)
[2018-03-25] MEDS: FERROUS SULFATE 325 MG TAB PO SCH (07:32)
[2018-03-25] MEDS: CIPROFLOXACIN 400mg IV 400 MG/200 ML BAG IV SCH (07:32)
[2018-03-25] MEDS: predniSONE 10 MG TAB PO SCH (07:32)
[2018-03-25] MEDS: CRANBERRY FRUIT EXTRACT 200 MG CAP PO SCH ×2 (07:32→21:05)
[2018-03-25] MEDS: PROMOD 30 ML DOSE PO SCH ×2 (07:33→20:00)
[2018-03-25] MEDS: AMLODIPINE 5 MG TAB PO SCH (07:33)
[2018-03-25] MEDS: FLUOXETINE 20 MG CAP PO SCH (07:33)
[2018-03-25] MEDS ORDERED: PANTOPRAZOLE 40 MG INJ IVP SCH (08:00)
--- NOTE | 2018-03-25 10:22 | P.RH.PN ---
Estimated Length of Stay: 16 Expected Discharge Date: 03/26/18 Discharge Disposition Plan: Home Family Support: Yes Custodial Goal: Mobility, Transfers, Self Care Vital Signs: Last Vital Signs Temp 97.3 F 03/24/18 20:00 Pulse 75 03/24/18 20:00 Resp 18 03/24/18 20:00 BP 111/54 L 03/24/18 20:00 Pulse Ox 96 03/24/18 20:00 Laboratory: Laboratory Last Values WBC 7.1 K/uL (4.3-10.9) D 03/25/18 06:07 RBC 5.37 M/uL (3.86-4.86) H 03/25/18 06:07 Hgb 14.2 g/dL (12.0-15.0) 03/25/18 06:07 Hct 44.4 % (36.0-45.0) D 03/25/18 06:07 MCV 82.7 fL (80-100) 03/25/18 06:07 MCH 26.4 pg (27.0-35.0) L 03/25/18 06:07 MCHC 32.0 g/dL (32.0-36.0) 03/25/18 06:07 RDW 16.7 % (12.1-15.2) H 03/25/18 06:07 Plt Count 253 K/uL (152-406) D 03/25/18 06:07 MPV 8.3 fL (7.6-11.3) 03/25/18 06:07 Neutrophils % 71.3 % (41.7-73.7) 03/25/18 06:07 Lymphocytes % 16.1 % (15.3-44.8) 03/25/18 06:07 Monocytes % 4.6 % (3.3-12.3) 03/25/18 06:07 Eosinophils % 7.4 % (0-4.4) H 03/25/18 06:07 Basophils % 0.6 % (0-1.3) 03/25/18 06:07 Absolute Neutrophils 5.1 K/uL (1.8-8.0) 03/25/18 06:07 Absolute Lymphocytes 1.2 K/uL (0.7-4.9) 03/25/18 06:07 Absolute Monocytes 0.3 K/uL (0.1-1.3) 03/25/18 06:07 Absolute Eosinophils 0.5 K/uL (0-0.5) 03/25/18 06:07 Absolute Basophils 0.0 K/uL (0-0.5) 03/25/18 06:07 Morphology Comment Not seen (NOT SEEN) 03/23/18 15:13 pH 7.52 (7.35-7.45) H 03/13/18 14:15 pCO2 32.7 mmHG (35-45) L 03/13/18 14:15 pO2 92.7 mmHG (75-100) 03/13/18 14:15 HCO3 26.8 mmol/L (22-28) 03/13/18 14:15 Base Excess 3.9 mmol/L 03/13/18 14:15 Oxyhemoglobin 95.3 % (94-97) 03/13/18 14:15 ABG O2 Sat (Measured) 97.5 % (92-98.5) 03/13/18 14:15 ABG Carboxyhemoglobin 1.7 % (0-1.5) H 03/13/18 14:15 ABG Methemoglobin 0.6 % (0-1.5) 03/13/18 14:15 Other Total Hgb 9.9 g/dl (12-18) L 03/13/18 14:15 Inspired O2 21.0 % 03/13/18 14:15 Sodium 141 mmol/L (136-145) 03/25/18 06:07 Potassium 3.8 mmol/L (3.5-5.1) 03/25/18 06:07 Chloride 111 mmol/L (98-107) H 03/25/18 06:07 Carbon Dioxide 23 mmol/L (21-32) 03/25/18 06:07 BUN 19 mg/dL (7-18) H 03/25/18 06:07 Creatinine 1.10 mg/dL (0.55-1.3) 03/25/18 06:07 Estimated GFR 49 mL/min (=/>90) L 03/25/18 06:07 Glucose 97 mg/dL (74-106) 03/25/18 06:07 POC Glucose 106 mg/dl (65-120) 03/13/18 08:52 Calcium 8.1 mg/dL (8.5-10.1) L 03/25/18 06:07 Magnesium 2.3 mg/dL (1.8-2.4) 03/23/18 15:13 Total Bilirubin 0.4 mg/dL (0.2-1.0) 03/23/18 15:13 Direct Bilirubin 0.1 mg/dL (0-0.2) 03/23/18 15:13 AST 17 U/L (15-37) 03/23/18 15:13 ALT 20 U/L (12-78) 03/23/18 15:13 Alkaline Phosphatase 124 U/L (45-117) H 03/23/18 15:13 Lactate Dehydrogenase 191 U/L (84-246) 03/23/18 19:05 Serum Total Protein 7.8 g/dL (6.4-8.2) 03/23/18 15:13 Albumin 3.3 g/dL (3.4-5.0) L 03/23/18 15:13 Globulin 4.5 g/dL (2.3-3.5) H 03/23/18 15:13 Albumin/Globulin Ratio 0.7 (1.1-1.8) L 03/23/18 15:13 Prealbumin 19.6 mg/dL (20-40) L 03/17/18 05:53 Procalcitonin 0.05 ng/mL (<0.50) 03/23/18 19:05 Urine Color Yellow 03/13/18 07:20 Urine Appearance Cloudy 03/13/18 07:20 Urine pH 7.0 (5.0-7.0) 03/13/18 07:20 Ur Specific [place] 1.015 (1.005-1.030) 03/13/18 07:20 Urine Ketones Negative (NEG) 03/13/18 07:20 Urine Blood 1+ (NEG) H 03/13/18 07:20 Urine Nitrite Negative (NEG) 03/13/18 07:20 Urine Bilirubin Negative (NEG) 03/13/18 07:20 Urine Urobilinogen 2.0 mg/dL (0.2-1.0) H 03/13/18 07:20 Ur Leukocyte Esterase 3+ (NEG) H 03/13/18 07:20 Urine RBC 5-10 /HPF (NONE SEEN) H 09/23/18 07:20 Urine WBC 20-50 /HPF (<5) H 03/13/18 07:20 Ur Squamous Epith Cells 5-10 /HPF (NONE SEEN) H 03/13/18 07:20 Urine Bacteria 20-50 /HPF (<20) H 03/13/18 07:20 Urine Culture Reflexed Not needed 03/13/18 07:20 Urine Glucose Negative (NEG) 03/13/18 07:20 Urine Total Protein Negative (NEG) 03/13/18 07:20 Weight: 189 lb 8 oz Wound Present: No Closed Surgical Incision Present: No Negative Pressure Wound Therapy Present: No Physician Update: She is improving her gastroenteritis while on iv fluids, NPO, Flagyl and Cipro. No bowel movements since yesterday. Will restart oral feedings and antibiotics with plan to discharge in the morning. She did very well with physical and occupational therapy. Medical Issues: WBC -18.4. Diarrhea. Vomiting Medication Issues: Ciprofloxacin 400mg Q12H IV. Metronidazole 500mg Q8H IV. Lovenox 40mg Daily SQ Pain Issues: Jud 5/325mg Q4H PRN PO. Tramadol 100mg Q4H PRN PO Functional Improvement: Patient has met all short-term and long-term goals at this time, w/ the exception of a car transfer. Patient has experienced a stomach issue the last two days, therefore awaiting for issue to pass. Functional Improvement Occupational Therapy: pt can benifit with further therapy to address pt's UB/LB dressing using A/E as needed and cont to educated and train the pt on hip precautions and following the hip precautions. cont to educate pt to slow down due to pt's impulsiveness and pt's safety awareness with transfers and LB dressing tasks. Cont with the POC and the goals by the supervising OTR. Summary: Patient's care plan and oysterman goals have been reviewed and revised as necessary. Please see the Rehabilitation Signature page for all necessary signatures.
[2018-03-25] MEDS: TRAMADOL HCL 50 MG TAB PO PRN (11:46)
[2018-03-25] MEDS: metroNIDAZOLE 500 MG TABLET PO SCH ×2 (12:59→21:05)
[2018-03-25] MEDS: CYCLOBENZAPRINE 10 MG TAB PO SCH ×2 (12:59→21:05)
[2018-03-25] MEDS: CIPROFLOXACIN HCL 500 MG TAB PO SCH (21:04)
[2018-03-25] MEDS: ATORVASTATIN 10 MG TAB PO SCH (21:04)
[2018-03-25] MEDS: APIXABAN 2.5 MG TABLET PO SCH (21:05)
[2018-03-25] MEDS: MELATONIN 3 MG TABLET PO PRN (21:11)
[2018-03-25] MEDS: MAGNES/ALUMIN/SIMET 30ML UCUP PO PRN (21:12)
--- NOTE | 2018-03-25 21:32 | PN ---
Date of Progress Note: 03/25/2018 Subjective: The patient seen and examined. Chart reviewed and case discussed with RN and Dr. Fitzgerald. The patient is doing significantly better. Her pain has improved. No nausea or vomiting. Clinically looking significantly better. Review of Systems: Negative except as above. Medications: List reviewed. Physical Examination: Vital signs: Temperature 97.2, heart rate 76, blood pressure 119/58, respirations 18, O2 98% on room air. General: Awake, alert, oriented x3, not in acute distress. Elderly female, obese. CV: S1, S2. No murmurs. Regular rate and rhythm. Peripheral pulses present. Respiratory: Moving air well bilaterally. No wheezing. Gastrointestinal: Soft, obese. No tenderness to palpation. Nondistended. Positive bowel sounds. Extremities: No clubbing, cyanosis, or edema. Neurologic: Nonfocal. Laboratory Data: Sodium 141, potassium 3.8, chloride 111, CO2 23, BUN 9, creatinine 1.1, glucose 97, calcium 8.1. WBC 7.1, H and H 14.2 and 44.4, platelets 253, neutrophils 71%. Urine culture, Klebsiella pneumoniae. Clostridium difficile is negative. Blood cultures, no growth to date. Assessment/plan: A 73-year-old female with: 1. Generalized abdominal pain secondary to ileus and enteritis. We will switch antibiotics to p.o. Start on a diet. The patient is able to tolerate ice chips and clear liquids overnight. Seems to be improving. No further nausea or vomiting. 2. Ileus and likely viral gastroenteritis versus bacterial gastroenteritis. Clostridium difficile result has been negative. The patient will continue prophylactic antibiotic p.o. route. Followup on ova and parasites culture results. Clinically improving. The patient does seem to have some abdominal cramps, likely muscle spasms. 3. Essential hypertension, stable. 4. Recent right hip surgery, currently undergoing rehab, has been switched up to Eliquis p.o. 5. History of transient ischemic attack. 6. Dyslipidemia, stable. 7. Major depressive disorder. Continue home medications. 8. Obesity, BMI 38.3. 9. Gastrointestinal and deep venous thrombosis prophylaxis with PPI and Eliquis. 10. Previous urinary tract infection with Klebsiella pneumoniae on 2017. Completed treatment. Plan: Resume home medications. Discontinue morphine. Advanced diet, GI soft. Discontinue Lovenox Eliquis. The patient's labs show improvement. WBC count has normalized. No growth on cultures. We will continue to monitor closely. If she continues to improve and tolerates her GI soft diet, the patient should be able to be discharged in a.m. /DONA Voice ID: [id number] Report ID: [id number] KIEL
[2018-03-26] MEDS: ALBUTEROL INHALER 60 PUFF/8 GM IH SCH (07:10)
[2018-03-26] MEDS: DULERA 100/5 (MOMETASONE/FORMOTEROL) INHALER IH SCH (07:10)
[2018-03-26] MEDS: AMLODIPINE 5 MG TAB PO SCH (08:00)
[2018-03-26] MEDS: PROMOD 30 ML DOSE PO SCH (08:00)
[2018-03-26] MEDS: FE SULF/FA/VIT B COMP & C TAB PO SCH (08:50)
[2018-03-26] MEDS: GABAPENTIN 300 MG CAP PO SCH (08:50)
[2018-03-26] MEDS: FERROUS SULFATE 325 MG TAB PO SCH (08:50)
[2018-03-26] MEDS: CYCLOBENZAPRINE 10 MG TAB PO SCH (08:50)
[2018-03-26] MEDS: APIXABAN 2.5 MG TABLET PO SCH (08:50)
[2018-03-26] MEDS: metroNIDAZOLE 500 MG TABLET PO SCH (08:50)
[2018-03-26] MEDS: FLUOXETINE 20 MG CAP PO SCH (08:50)
[2018-03-26] MEDS: CIPROFLOXACIN HCL 500 MG TAB PO SCH (08:50)
[2018-03-26] MEDS: predniSONE 10 MG TAB PO SCH (08:50)
[2018-03-26] MEDS: CRANBERRY FRUIT EXTRACT 200 MG CAP PO SCH (08:50)
[2018-03-26 08:51] VITALS: BP 98/46
[2018-03-26 09:31] VITALS: TEMP 97.2
[2018-03-27] MEDS ORDERED: PANTOPRAZOLE 40MG TABLET PO SCH (07:30)
== END 2018-03-26 09:35 | disposition home or self-care (01) | DRG 949 ==
LOC: 5TH 14:49
PROVIDERS: ADMIT Psychiatry & Neurology Neurology with Special Qualifications in Child Neurology; ATTEND Psychiatry & Neurology Neurology with Special Qualifications in Child Neurology
DX: S73.004D Unspecified dislocation of right hip, subsequent encounter (principal); K56.7 Ileus, unspecified; N39.0 Urinary tract infection, site not specified; I10 Essential (primary) hypertension; E78.5 Hyperlipidemia, unspecified; J44.9 Chronic obstructive pulmonary disease, unspecified; F32.9 Major depressive disorder, single episode, unspecified; K52.9 Noninfective gastroenteritis and colitis, unspecified; B96.1 Klebsiella pneumoniae [K. pneumoniae] as the cause of diseases classified elsewhere; E66.9 Obesity, unspecified; Z86.73 Personal history of transient ischemic attack (TIA), and cerebral infarction without residual deficits; Z68.38 Body mass index [BMI] 38.0-38.9, adult
CPT/HCPCS: 36415; 71045; 72020; 74022; 74176; 80048; 80076; 81001; 82040; 82805; 82962; 83615; 83735; 84134; 84145; 85025; 87040; 87077; 87086; 87088; 87177; 87186; 87209; 87493; 93005; 94640; C9113; J0744; J1650; J2270; J2405; J7030; J7512; J7606